=== PATIENT | male | born 1955 | race American Indian/Alaskan Native ===

== ENCOUNTER 2017-11-08 09:01 | Emergency (ER) | payer MEDICARE ==
[2017-11-08] MEDS ORDERED: TETRACAINE 0.5% OU ONE (11:34)
[2017-11-08] MEDS ORDERED: FUL-GLO OP ONE (11:34)
[2017-11-08] MEDS ORDERED: CATAPRES PO ONE (11:34)
[2017-11-08 11:49] VITALS: BP 162/69
--- NOTE | 2017-11-08 11:57 | Emergency Department Report ---
Stephani Doc - Documentation Documentation: Patient is a 61-year-old Indian male who states he was sitting at home last night and felt as though his blood sugar was dropping. Patient felt as though he was coming over his body went to reach for something sweet within had a syncopal episode. Patient states upon waking he started having some right eye pain. Patient thinks he may have hit his eye when he lost consciousness. Patient feels as though there is something in the eye he has a son look at his eye this morning in the just noted some redness is coming in today for further evaluation. The patient has not missed dialys at this time is current with his chin schedule for dialysis. Patient also states he takes blood pressure medicines because blood pressure was elevated today which will be addressed. Patient with some basic labs done to rule out any acute abnormality. We will floor stain the patient's the patient be reassessed AP is
[2017-11-08 12:04] LABS: Basophils % (Auto) 0.4 % (0.0-1.8); Eosinophils # (Auto) 0.1 K/mm3 (0.0-0.4); Eosinophils % (Auto) 0.9 % (0.0-4.3); Hematocrit 33.2 % (35.5-45.6); Lymphocytes # (Auto) 1.6 K/mm3 (1.2-5.4); Lymphocytes % (Auto) 27.2 % (13.4-35.0); Mean Corpuscular HGB Conc 33 % (32-34); Mean Corpuscular Hemoglobin 35 pg (28-32); Mean Corpuscular Volume 104 fl (84-94); Monocytes # (Auto) 0.4 K/mm3 (0.0-0.8); Monocytes % (Auto) 7.2 % (0.0-7.3); Platelet Count 173 K/mm3 (140-440); Red Blood Count 3.18 M/mm3 (3.65-5.03); Red Cell Distribution Width 17.3 % (13.2-15.2)
--- NOTE | 2017-11-08 12:08 | Emergency Department Report ---
ED Fall HPI - General Chief Complaint: Eye Problems Stated Complaint: RIGHT EYE PAIN Time Seen by Provider: 11/08/17 11:24 Source: patient Mode of arrival: Ambulatory - History of Present Illness Initial Comments: 61-year-old male. Past medical history ESRD on dialysis Wednesday presents with complaint of scalp contusion and right eye pain status post fall out of couch while at home last night. Patient states that while he was sitting on couch he felt slightly hypoglycemic reached for some candy and fell out of his seat on couch at home. Patient states he fell forward and felt somewhat dazed. States he may have hit right eye on a hard surface. Patient states he bumped the side of his head. Patient states the mandible denies any associated diaphoresis chest pain shortness of breath abdominal pain nausea vomiting. Patient states that his right eye is aching. States he has foreign body sensation overlying right eye. Patient was assisted by a family member. Patient is currently awake alert and oriented 3 not in acute distress. States that staring directly into light hurts his right eye. States he has been in his usual state of behavior health otherwise. MD Complaint: fall -: Last night Fall From: other (out of couch) Fall Witnessed: no Place Fall Occurred: home Loss of Consciousness: other (possibly dazed for several minutes) Prolonged Down Time?: unclear Location: head Severity: moderate Severity scale (0 -10): 6 Quality: burning, aching Associated Symptoms: other (right eye pain) - Related Data Home Medications Medication Instructions Recorded Confirmed Last Taken Aspirin 81 mg PO DAILY 04/27/17 04/27/17 1 Day Ago ~04/26/17 AtorvaSTATin [Lipitor] 40 mg PO QHS 04/27/17 04/27/17 1 Day Ago ~04/26/17 Vit B Comp No.3/Folic/C/Biotin 1 each PO DAILY 04/27/17 04/27/17 1 Day Ago [Carisa-Sonya Rx Tablet] ~04/26/17 traMADol [Ultram 50 MG tab] 50 mg PO Q6HR PRN 04/27/17 04/27/17 1 Day Ago ~04/26/17 Previous Rx's Medication Instructions Recorded Last Taken Type Carvedilol 25 mg PO DAILY #60 tablet 04/29/17 Unknown Rx Epoetin True 10,000 Unit [Procrit] 10,000 unit IV TuThSa vial 04/29/17 Unknown Rx Folic Acid/Vit B Comp W-C [Renal 1 cap PO QDAY capsule 04/29/17 Unknown Rx Caps] Insulin Aspart [NovoLOG 100 See Protocol SQ AC #3 ml 04/29/17 Unknown Rx UNITS/ML VIAL] Lisinopril [Zestril TAB] 40 mg PO QDAY #30 tablet 04/29/17 Unknown Rx NIFEdipine [Nifedipine ER] 60 mg PO DAILY #30 tab.er.24 04/29/17 Unknown Rx Acetaminophen [Acetaminophen TAB] 500 mg PO Q6HR PRN #20 tablet 11/08/17 Unknown Rx Bacitracin Zinc Oint [Antibiotic 1 applicatio TP BID #1 tube 11/08/17 Unknown Rx Oint] Erythromycin [Erythromycin Ophth 1 applic OP QID #1 tube 11/08/17 Unknown Rx Oint] Allergies Allergy/AdvReac Type Severity Reaction Status Date / Time No Known Allergies Allergy Verified 04/27/17 04:51 ED Review of Systems ROS: Stated complaint: RIGHT EYE PAIN Other details as noted in HPI Constitutional: denies: chills, fever Eyes: denies: eye pain, eye discharge, vision change ENT: denies: ear pain, throat pain Respiratory: denies: cough, shortness of breath, wheezing Cardiovascular: denies: chest pain, palpitations Endocrine: no symptoms reported Gastrointestinal: denies: abdominal pain, nausea, diarrhea Genitourinary: denies: urgency, dysuria Musculoskeletal: denies: back pain, joint swelling, arthralgia Skin: denies: rash, lesions Neurological: denies: headache, weakness, paresthesias Psychiatric: denies: anxiety, depression Hematological/Lymphatic: denies: easy bleeding, easy bruising ED Past Medical Hx - Past Medical History Hx Hypertension: Yes Hx Congestive Heart Failure: No Hx Diabetes: Yes Hx Renal Disease: Yes Hx Seizures: No Hx Kidney Stones: No Hx Asthma: No Hx COPD: No Hx HIV: No Additional medical history: Dialysis T TH Sat - Surgical History Additional Surgical History: graph to right leg - Social History Smoking Status: Never Smoker Substance Use Type: Marijuana - Medications Home Medications: Home Medications Medication Instructions Recorded Confirmed Last Taken Type Aspirin 81 mg PO DAILY 04/27/17 04/27/17 1 Day Ago History ~04/26/17 AtorvaSTATin [Lipitor] 40 mg PO QHS 04/27/17 04/27/17 1 Day Ago History ~04/26/17 Vit B Comp No.3/Folic/C/Biotin 1 each PO DAILY 04/27/17 04/27/17 1 Day Ago History [Carisa-Sonya Rx Tablet] ~04/26/17 traMADol [Ultram 50 MG tab] 50 mg PO Q6HR PRN 04/27/17 04/27/17 1 Day Ago History ~04/26/17 Carvedilol 25 mg PO DAILY #60 tablet 04/29/17 Unknown Rx Epoetin True 10,000 Unit [Procrit] 10,000 unit IV TuThSa vial 04/29/17 Unknown Rx Folic Acid/Vit B Comp W-C [Renal 1 cap PO QDAY capsule 04/29/17 Unknown Rx Caps] Insulin Aspart [NovoLOG 100 See Protocol SQ AC #3 ml 04/29/17 Unknown Rx UNITS/ML VIAL] Lisinopril [Zestril TAB] 40 mg PO QDAY #30 tablet 04/29/17 Unknown Rx NIFEdipine [Nifedipine ER] 60 mg PO DAILY #30 tab.er.24 04/29/17 Unknown Rx Acetaminophen [Acetaminophen TAB] 500 mg PO Q6HR PRN #20 tablet 11/08/17 Unknown Rx Bacitracin Zinc Oint [Antibiotic 1 applicatio TP BID #1 tube 11/08/17 Unknown Rx Oint] Erythromycin [Erythromycin Ophth 1 applic OP QID #1 tube 11/08/17 Unknown Rx Oint] ED Physical Exam - General Limitations: No Limitations General appearance: alert, in no apparent distress - Head Head exam: Present: atraumatic, normocephalic - Eye Eye exam: Present: normal appearance, PERRL, EOMI Pupils: Present: normal accommodation - Expanded Eye Exam Expanded Pupils: Regular, Round: Bilateral, Reactive: Bilateral Sclera/Conjunctival: Injection: Right (right-sided corneal abrasion approximately 50% of the limbus. Not overlying the pupil.) Visual acuity (R) = 20/: 80 Visual acuity (L) = 20/: 30 - ENT ENT exam: Present: mucous membranes moist - Neck Neck exam: Present: normal inspection - Respiratory Respiratory exam: Present: normal lung sounds bilaterally. Absent: respiratory distress - Cardiovascular Cardiovascular Exam: Present: regular rate, normal rhythm. Absent: systolic murmur, diastolic murmur, rubs, gallop - GI/Abdominal GI/Abdominal exam: Present: soft, normal bowel sounds - Rectal Rectal exam: Present: deferred - Extremities Exam Extremities exam: Present: normal inspection - Back Exam Back exam: Present: normal inspection - Neurological Exam Neurological exam: Present: alert, oriented X3, CN II-XII intact, normal gait - Expanded Neurological Exam Expanded Patient oriented to: Present: person, place, time Cranial nerves: EOM's Intact: Normal Sensory exam: Upper Extremity Light Touch: Normal, Lower Extremity Light Touch: Normal Motor strength exam: RUE: 5, LUE: 5, RLE: 5, LLE: 5 Best Eye Response ([place]sm[place]): (4) open spontaneously Best Motor Response ([place]): (6) obeys commands Best Verbal Response ([place]): (5) oriented Osmar Total: 15 - Psychiatric Psychiatric exam: Present: normal affect, normal mood - Skin Skin exam: Present: warm, dry, intact, normal color. Absent: rash ED Course Vital Signs 11/08/17 11/08/17 09:24 11:49 Temperature 98.8 F Pulse Rate 79 Respiratory 17 Rate Blood Pressure 179/157 162/69 O2 Sat by Pulse 100 Oximetry ED Medical Decision Making - Lab Data Result diagrams: 11/08/17 11:41 11/08/17 11:41 - Medical Decision Making A/P: Syncopal episode, right corneal abrasion, skin abrasion on scalp 1-tetanus vaccine updated today, erythromycin ointment to right eye. Follow-up with ophthalmology. 2-I advised patient to follow up with his primary care doctor. I emphasized the importance of follow-up with ophthalmology to the patient's 3-Tylenol when necessary, bacitracin to forehead abrasion 4- CT head and C-spine unremarkable. Old degenerative changes C-spine. Cranial nerves 2, 3, 4, 5, 6, 7, 8,10, 11, 12 intact on clinical exam, patient is fully lucid awake alert and oriented 3 conversant. 5- discuss case with Dr. Suarez before discharge. Dr. Suarez no further workup necessary. EKG sinus rhythm, CT is unremarkable. Lab work unremarkable, consistent with patient's history of ESRD. Critical care attestation.: If time is entered above; I have spent that time in minutes in the direct care of this critically ill patient, excluding procedure time. ED Disposition Clinical Impression: Right corneal abrasion Qualifiers: Encounter type: initial encounter Qualified Code(s): S05.01XA - Injury of conjunctiva and corneal abrasion without foreign body, right eye, initial encounter Contusion of scalp Qualifiers: Encounter type: initial encounter Qualified Code(s): S00.03XA - Contusion of scalp, initial encounter Scalp abrasion Qualifiers: Encounter type: initial encounter Qualified Code(s): S00.01XA - Abrasion of scalp, initial encounter Disposition: DC- TO HOME OR SELFCARE Is pt being admited?: No Does the pt Need Aspirin: No Condition: Stable Instructions: Corneal Abrasion (ED), Syncope (ED), Abrasion (ED), Scalp Contusion in Adults (ED) Prescriptions: Acetaminophen [Acetaminophen TAB] 500 mg PO Q6HR PRN #20 tablet PRN Reason: Pain Bacitracin Zinc Oint [Antibiotic Oint] 1 applicatio TP BID #1 tube Erythromycin [Erythromycin Ophth Oint] 1 applic OP QID #1 tube Referrals: THERESA ALBA MD [Staff Physician] - 3-5 Days JENNIFER ORTIZ MD [Staff Physician] - 3-5 Days Time of Disposition: 13:31
[2017-11-08 12:18] LABS: Calcium 9.8 mg/dL (8.4-10.2)
[2017-11-08] MEDS ORDERED: TYLENOL PO ONE (13:23)
[2017-11-08] MEDS ORDERED: BOOSTRIX IM ONE (13:24)
--- NOTE | 2017-11-08 13:28 | Cat Scan Report ---
FINAL REPORT EXAM: CT CERVICAL SPINE WO CON HISTORY: s/p fall head/neck pain TECHNIQUE: A noncontrast CT of the cervical spine was performed. Coronal and sagittal reformatted images were obtained. PRIORS: None. FINDINGS: Vertebral body heights and alignment are maintained. There is no evidence of acute fracture. Mild posterior disc protrusions and disc osteophyte complexes cause multilevel mild spinal stenosis. There is also multilevel moderate facet arthropathy, mostly on the left. With degenerative disc disease findings cause [id number] neuroforaminal narrowing at C3-4 and C4-5 on the left. IMPRESSION: Degenerative changes. There is no evidence of cervical spine fracture or subluxation.
--- NOTE | 2017-11-08 13:29 | Cat Scan Report ---
FINAL REPORT EXAM: CT HEAD/BRAIN WO CON HISTORY: s/p fall, headache TECHNIQUE: CT of the head was performed. No intravenous contrast was administered. PRIORS: None. FINDINGS: There is no evidence of intracranial hemorrhage. There is no edema, mass effect or midline shift. There are no abnormal extra-axial fluid collections. The ventricles are appropriate for brain volume. There is no skull fracture seen. The visualized aspects of the sinuses are clear. IMPRESSION: There is no acute intracranial abnormality identified.
[2017-11-08] MEDS ORDERED: NORCO 5/325 PO ONE (14:23)
== END 2017-11-08 14:03 | disposition home or self-care (01) ==
LOC: ED 09:01
DX: S05.01XA Injury of conjunctiva and corneal abrasion without foreign body, right eye, initial encounter (principal); E11.22 Type 2 diabetes mellitus with diabetic chronic kidney disease; I12.0 Hypertensive chronic kidney disease with stage 5 chronic kidney disease or end stage renal disease; N18.6 End stage renal disease; F12.10 Cannabis abuse, uncomplicated; Z99.2 Dependence on renal dialysis; Z79.4 Long term (current) use of insulin; W08.XXXA Fall from other furniture, initial encounter; Y93.89 Activity, other specified; Y99.8 Other external cause status; Y92.009 Unspecified place in unspecified non-institutional (private) residence as the place of occurrence of the external cause
CPT/HCPCS: 36415; 70450; 72125; 80048; 82962; 85025; 90471; 90715; 93005; 93010

== ENCOUNTER 2018-11-29 04:45 | Emergency (ER) | payer MEDICARE ==
[2018-11-29 05:33] VITALS: BP 206/82
== END 2018-11-29 05:50 | disposition left against medical advice (07) ==
LOC: ED 04:45
DX: R06.89 Other abnormalities of breathing (principal); Z53.21 Procedure and treatment not carried out due to patient leaving prior to being seen by health care provider

== ENCOUNTER 2018-12-21 02:37 | Inpatient (IN) | payer MEDICARE ==
--- NOTE | 2018-12-21 02:53 | Emergency Department Report ---
ED Shortness of Breath HPI - General Chief Complaint: Dyspnea/Respdistress Stated Complaint: SEBAS Time Seen by Provider: 12/21/18 02:53 Source: patient Mode of arrival: Wheelchair Limitations: No Limitations - History of Present Illness Initial Comments: 63-year-old male with history of ESRD and pancreatic cancer presents to ED with sudden onset shortness of breath. Patient states symptoms awoke him from sleep. Patient states he was dialyzed yesterday, patient is on a Wednesday//Wednesday schedule. Patient is not on any oxygen at home. This chest pain. Reports cough productive of white sputum, denies fever. Patient states he believes he did not have enough fluid removed while at dialysis yesterday. Patient denies lower extremity pain or swelling. Pt 88% on RA at triage. 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 Complaint: shortness of breath -: hour(s) (1) Severity: severe Improves With: nothing Worsens With: nothing Known History Of: other (ESRD) Associated Symptoms: cough - Related Data Home Medications Medication Instructions Recorded Confirmed Last Taken AtorvaSTATin [Lipitor] 40 mg PO QHS 04/27/17 08/04/18 1 Day Ago ~04/26/17 Vit B Comp No.3/Folic/C/Biotin 1 each PO DAILY 04/27/17 08/04/18 1 Day Ago [Carisa-Sonya Rx Tablet] ~04/26/17 traMADol [Ultram 50 MG tab] 50 mg PO Q6H PRN 04/27/17 08/04/18 1 Day Ago ~04/26/17 Amlodipine Besylate [Norvasc] 10 mg PO QDAY 08/04/18 08/04/18 Unknown Aspirin [Adult Low Dose Aspirin EC] 81 mg PO DAILY 08/04/18 08/04/18 Unknown Carvedilol 25 mg PO BID 08/04/18 08/04/18 Unknown Insulin Aspart [NovoLOG 100 10 units SUB-Q PRN 08/04/18 08/04/18 Unknown UNITS/ML VIAL] Insulin Detemir [Levemir Flextouch] 30 units SUB-Q QHS 08/04/18 08/04/18 Unknown Ranitidine HCl [Zantac] 150 mg PO QDAY 08/04/18 08/04/18 Unknown hydrALAZINE [Apresoline TAB] 25 mg PO TID 08/04/18 08/04/18 Unknown Allergies Allergy/AdvReac Type Severity Reaction Status Date / Time morphine Allergy Swelling Verified 11/29/18 04:52 ED Review of Systems ROS: Stated complaint: SEBAS Other details as noted in HPI Comment: All other systems reviewed and negative Constitutional: denies: chills, fever Respiratory: cough, shortness of breath Cardiovascular: denies: chest pain Musculoskeletal: other (denies leg pain or swelling) ED Past Medical Hx - Past Medical History Previous Medical History?: Yes Hx Hypertension: Yes Hx Congestive Heart Failure: No Hx Diabetes: Yes Hx Renal Disease: Yes Hx Seizures: No Hx Kidney Stones: No Hx Asthma: No Hx COPD: No Hx HIV: No Additional medical history: Dialysis T Wed - Surgical History Past Surgical History?: Yes Additional Surgical History: graft to right leg - Social History Smoking Status: Current Every Day Smoker Substance Use Type: Marijuana - Medications Home Medications: Home Medications Medication Instructions Recorded Confirmed Last Taken Type AtorvaSTATin [Lipitor] 40 mg PO QHS 04/27/17 08/04/18 1 Day Ago History ~04/26/17 Vit B Comp No.3/Folic/C/Biotin 1 each PO DAILY 04/27/17 08/04/18 1 Day Ago History [Carisa-Sonya Rx Tablet] ~04/26/17 traMADol [Ultram 50 MG tab] 50 mg PO Q6H PRN 04/27/17 08/04/18 1 Day Ago History ~04/26/17 Amlodipine Besylate [Norvasc] 10 mg PO QDAY 08/04/18 08/04/18 Unknown History Aspirin [Adult Low Dose Aspirin EC] 81 mg PO DAILY 08/04/18 08/04/18 Unknown History Carvedilol 25 mg PO BID 08/04/18 08/04/18 Unknown History Insulin Aspart [NovoLOG 100 10 units SUB-Q PRN 08/04/18 08/04/18 Unknown History UNITS/ML VIAL] Insulin Detemir [Levemir Flextouch] 30 units SUB-Q QHS 08/04/18 08/04/18 Unknown History Ranitidine HCl [Zantac] 150 mg PO QDAY 08/04/18 08/04/18 Unknown History hydrALAZINE [Apresoline TAB] 25 mg PO TID 08/04/18 08/04/18 Unknown History ED Physical Exam - General Limitations: No Limitations General appearance: alert, in distress - Head Head exam: Present: atraumatic, normocephalic - Eye Eye exam: Present: normal appearance - ENT ENT exam: Present: mucous membranes moist - Neck Neck exam: Present: normal inspection - Respiratory Respiratory exam: Present: respiratory distress, rales, other (tachypneic) - Cardiovascular Cardiovascular Exam: Present: normal rhythm, tachycardia - GI/Abdominal GI/Abdominal exam: Present: soft. Absent: distended, tenderness - Extremities Exam Extremities exam: Absent: pedal edema - Neurological Exam Neurological exam: Present: alert, oriented X3 - Psychiatric Psychiatric exam: Present: normal affect, normal mood - Skin Skin exam: Present: warm, dry, intact, normal color. Absent: rash ED Course Vital Signs 12/21/18 12/21/18 12/21/18 02:41 02:47 03:01 Temperature 98.3 F Pulse Rate 106 H 110 H 134 H Respiratory 24 43 H 41 H Rate Blood Pressure 237/105 Blood Pressure 237/99 [Right] O2 Sat by Pulse 88 94 100 Oximetry 12/21/18 12/21/18 12/21/18 03:13 03:15 03:31 Temperature Pulse Rate 114 H 96 H 87 Respiratory 33 H 24 25 H Rate Blood Pressure 237/105 217/104 Blood Pressure [Right] O2 Sat by Pulse 96 100 100 Oximetry 12/21/18 12/21/18 12/21/18 03:45 04:01 04:15 Temperature Pulse Rate 84 84 79 Respiratory 23 17 13 Rate Blood Pressure 203/86 217/104 187/73 Blood Pressure [Right] O2 Sat by Pulse 100 100 100 Oximetry 12/21/18 12/21/18 12/21/18 04:30 04:31 04:45 Temperature Pulse Rate 76 75 76 Respiratory 18 19 19 Rate Blood Pressure 185/75 177/70 185/75 Blood Pressure [Right] O2 Sat by Pulse 100 100 100 Oximetry 12/21/18 12/21/18 05:01 05:15 Temperature Pulse Rate 73 74 Respiratory 18 23 Rate Blood Pressure 185/75 183/75 Blood Pressure [Right] O2 Sat by Pulse 100 100 Oximetry ED Medical Decision Making - Lab Data Result diagrams: 12/21/18 03:19 12/21/18 03:19 - EKG Data -: EKG Interpreted by Me EKG shows normal: sinus rhythm, axis, intervals, QRS complexes, ST-T waves Rate: normal - EKG Data Interpretation: no acute changes - Radiology Data Radiology results: report reviewed, image reviewed - Medical Decision Making 63-year-old male with sudden onset acute respiratory distress. Room air sats 88%. Patient severely hypertensive. Due to respiratory distress, patient was placed on BiPAP. Hydralazine given for blood pressure. Chest x-rays show pulmonary edema and possible right-sided infiltrate. Patient afebrile, wbc's normal. Levaquin given for coverage. Pt admitted to hospitalist, Dr Alex. - Differential Diagnosis pulm edema, pneumonia, pleural effusion, PE Critical care attestation.: If time is entered above; I have spent that time in minutes in the direct care of this critically ill patient, excluding procedure time. ED Disposition Clinical Impression: Pulmonary edema, Respiratory failure with hypoxia, Hypertensive emergency, ESRD (end stage renal disease) Disposition: OP ADMIT IP TO THIS HOSP Is pt being admited?: Yes Condition: Stable Instructions: Pulmonary Edema (ED), Hypertension (ED) Referrals: PRIMARY CARE, [Primary Care Provider] - 3-5 Days Time of Disposition: 04:26
[2018-12-21] MEDS ORDERED: APRESOLINE IV ONE (03:21)
[2018-12-21] MEDS ORDERED: APRESOLINE ONE ×2 (03:24→08:15)
--- NOTE | 2018-12-21 03:45 | XRay Report ---
PROCEDURE: XR CHEST 1V AP TECHNIQUE: Chest radiograph single view. HISTORY: sob COMPARISONS: 04/29/2017 . FINDINGS: Heart: The heart is mildly enlarged.. Mediastinum/Vessels: The lungs are diffusely congested.. Lungs/Pleural space: There is diffuse bilateral interstitial edema. Superimposed airspace disease ca nnot be excluded in the right lung base. Pleural fluid is not seen.. Bony thorax: No acute osseous abnormality. Life support devices: There is a Port-A-Cath catheter along the right chest wall with the limb in the SVC.. IMPRESSION: Congestive heart failure pattern. Superimposed pneumonia in the right lung base cannot b e excluded.. This document is electronically signed by Doug Ryan MD., December 21 2018 03:43:52 AM ET
[2018-12-21 04:19] LABS: Partial Thromboplastin Time 27.9 Sec. (24.2-36.6)
[2018-12-21 04:25] LABS: Basophils # (Auto) 0.1 K/mm3 (0.0-0.1); Calcium 9.5 mg/dL (8.4-10.2); Eosinophils # (Auto) 0.1 K/mm3 (0.0-0.4); Eosinophils % (Auto) 1.4 % (0.0-4.3); Monocytes # (Auto) 0.3 K/mm3 (0.0-0.8); Monocytes % (Auto) 4.5 % (0.0-7.3)
[2018-12-21 04:28] LABS: Red Blood Count 2.99 M/mm3 (3.65-5.03)
[2018-12-21 04:29] LABS: Hematocrit 31.1 % (35.5-45.6); Hemoglobin 10.5 gm/dl (11.8-15.2); Lymphocytes % (Auto) 27.6 % (13.4-35.0); Mean Corpuscular HGB Conc 34 % (32-34); Mean Corpuscular Volume 104 fl (84-94); Platelet Count 179 K/mm3 (140-440); Red Cell Distribution Width 21.7 % (13.2-15.2)
[2018-12-21] MEDS ORDERED: PERCOCET 5/325 PO ONE (05:14)
[2018-12-21] MEDS ORDERED: PERCOCET 5/325 ONE (05:17)
[2018-12-21] MEDS ORDERED: LEVAQUIN PO ONE (06:13)
--- NOTE | 2018-12-21 06:45 | History and Physical Report ---
History of Present Illness Date of examination: 12/21/18 Date of admission: 12/21/18 05:22 Chief complaint: Shortness of breath History of present illness: Patient is a 63-year-old male with PMHx ESRD on HD (TTS), pancreatic cancer (dx on October 2018, currently on chemotherapy), hypertension who presents to the ER with complaints of SOB. Patient states that he woke up with severe shortness of breath, he was unable to catch his breath, his son drove him to the ER for evaluation. Patient states that he started chemotherapy 2 weeks ago on Wednesday, he received a lot of fluid in chemotherapy, after undergoing HD that day. Patient states that he can hear his lung crackling due to fluid overload, he reports sudden cough productive of white sputum, he denies chest pain, denies lower extremity pain or swelling, denies fever, denies chills. Patient states he feels that is getting fluid overloaded in chemotherapy and not enough HD time which cause his symptoms. On arrival to the ER, patient's O2 sat was 88%, his O2 sat continued to decline he was put in a BiPAP for better ventilation, his BNP is pending, patient is admitted for further management of his presenting symptoms. Past History Past Medical History: anemia, cancer, COPD, ESRD Past Surgical History: No surgical history Social history: no significant social history, smoking (decrease to 2 cigarettes per day) Family history: no significant family history Medications and Allergies Allergies Allergy/AdvReac Type Severity Reaction Status Date / Time morphine Allergy Swelling Verified 11/29/18 04:52 Home Medications Medication Instructions Recorded Confirmed Last Taken Type AtorvaSTATin [Lipitor] 40 mg PO QHS 04/27/17 12/21/18 12/20/18 History Vit B Comp No.3/Folic/C/Biotin 1 each PO DAILY 04/27/17 12/21/18 12/20/18 History [Carisa-Sonya Rx Tablet] traMADol [Ultram 50 MG tab] 50 mg PO Q6H PRN 04/27/17 12/21/18 12/20/18 History Amlodipine Besylate [Norvasc] 10 mg PO QDAY 08/04/18 12/21/18 12/20/18 History Aspirin [Adult Low Dose Aspirin EC] 81 mg PO DAILY 08/04/18 12/21/18 12/20/18 History Carvedilol 25 mg PO BID 08/04/18 12/21/18 12/20/18 History Insulin Aspart [NovoLOG 100 10 units SUB-Q PRN 08/04/18 12/21/18 12/20/18 History UNITS/ML VIAL] Insulin Detemir [Levemir Flextouch] 30 units SUB-Q QHS 08/04/18 12/21/18 12/20/18 History Ranitidine HCl [Zantac] 150 mg PO QDAY 08/04/18 12/21/18 12/20/18 History hydrALAZINE [Apresoline TAB] 25 mg PO TID 08/04/18 12/21/18 12/20/18 History Review of Systems Respiratory: cough, shortness of breath, dyspnea on exertion, congestion Exam - Constitutional Vitals: Temp Pulse Resp BP Pulse Ox 98.3 F 74 23 183/75 100 12/21/18 02:41 12/21/18 05:15 12/21/18 05:15 12/21/18 05:15 12/21/18 05:15 General appearance: Present: mild distress - EENT Eyes: Present: EOM intact ENT: hearing intact - Neck Neck: Present: normal ROM - Respiratory Respiratory effort: normal Respiratory: bilateral: rales, rhonchi - Cardiovascular Rhythm: regular Heart Sounds: Present: S1 & S2 Peripheral Pulses: within normal limits - Abdominal Male genitourinary: Present: deferred - Rectal Rectal Exam: deferred - Integumentary Integumentary: Present: warm, dry - Musculoskeletal Musculoskeletal: generalized weakness - Psychiatric Psychiatric: cooperative - Neurologic Neurologic: moves all extremities Results - Labs CBC & Chem 7: 12/21/18 03:19 12/21/18 03:19 Labs: Laboratory Last Values WBC 7.4 K/mm3 (4.5-11.0) 12/21/18 03:19 RBC 2.99 M/mm3 (3.65-5.03) L 12/21/18 03:19 Hgb 10.5 gm/dl (11.8-15.2) L 12/21/18 03:19 Hct 31.1 % (35.5-45.6) L 12/21/18 03:19 MCV 104 fl (84-94) H 12/21/18 03:19 MCH 35 pg (28-32) H 12/21/18 03:19 MCHC 34 % (32-34) 12/21/18 03:19 RDW 21.7 % (13.2-15.2) H 12/21/18 03:19 Plt Count 179 K/mm3 (140-440) 12/21/18 03:19 Lymph % (Auto) 27.6 % (13.4-35.0) 12/21/18 03:19 [place] % (Auto) 4.5 % (0.0-7.3) 12/21/18 03:19 Eos % (Auto) 1.4 % (0.0-4.3) 12/21/18 03:19 Baso % (Auto) 1.0 % (0.0-1.8) 12/21/18 03:19 Lymph # 2.0 K/mm3 (1.2-5.4) 12/21/18 03:19 [place] # 0.3 K/mm3 (0.0-0.8) 12/21/18 03:19 Eos # 0.1 K/mm3 (0.0-0.4) 12/21/18 03:19 Baso # 0.1 K/mm3 (0.0-0.1) 12/21/18 03:19 Add Manual Diff Complete 12/21/18 03:19 Seg Neutrophils % 65.5 % (40.0-70.0) 12/21/18 03:19 Seg Neutrophils # 4.8 K/mm3 (1.8-7.7) 12/21/18 03:19 PT 13.8 Sec. (12.2-14.9) 12/21/18 03:19 INR 1.00 (0.87-1.13) 12/21/18 03:19 APTT 27.9 Sec. (24.2-36.6) 12/21/18 03:19 Sodium 132 mmol/L (137-145) L 12/21/18 03:19 Potassium 4.4 mmol/L (3.6-5.0) 12/21/18 03:19 Chloride 87.1 mmol/L (98-107) L 12/21/18 03:19 Carbon Dioxide 27 mmol/L (22-30) 12/21/18 03:19 22 mmol/L 12/21/18 03:19 BUN 31 mg/dL (9-20) H 12/21/18 03:19 4.7 mg/dL (0.8-1.5) H 12/21/18 03:19 Estimated GFR 15 ml/min 12/21/18 03:19 7 % 12/21/18 03:19 Calcium 9.5 mg/dL (8.4-10.2) 12/21/18 03:19 0.129 ng/mL (0.00-0.029) H* 12/21/18 03:19 Assessment and Plan Assessment and plan: 1. Volume overload 2. Acute dyspnea (due to above) 3. ESRD on HD (TTS) 4. Pancreatic Ca (chemotherapy) 5. Accelerated hypertension 6. Hyperlipidemia 7. Hyponatremia 8. Anemia (multifactorial (chemotherapy, CKD) Plan: Patient is admitted for fluid overload Lasix IV every 12 hours Fluid restriction Consult nephrology for HD management Hydralazine for SBP greater than 160 Resume home meds Hospital course Advance Directives: Yes VTE prophylaxis?: Chemical Plan of care discussed with patient/family: Yes
[2018-12-21] MEDS ORDERED: HumaLOG SUB-Q ONE ×2 (07:39→07:54)
[2018-12-21] MEDS ORDERED: NITROSTAT SL PRN (07:42)
[2018-12-21 07:52] LABS: Chol/HDL Ratio 6.25 %; HDL Cholesterol 27 mg/dL (40-59); LDL Cholesterol,Direct TNR mg/dL (50-130)
[2018-12-21] MEDS: APRESOLINE IV PRN (08:18)
[2018-12-21] MEDS ORDERED: DILAUDID IV ONE (09:14)
[2018-12-21] MEDS ORDERED: ZOFRAN IV ONE (09:15)
[2018-12-21] MEDS ORDERED: DILAUDID ONE (09:19)
[2018-12-21] MEDS ORDERED: ZOFRAN ONE (09:19)
[2018-12-21] MEDS ORDERED: COREG ONE (09:20)
[2018-12-21] MEDS ORDERED: ZESTRIL ONE (09:20)
[2018-12-21] MEDS: ZESTRIL PO SCH (09:35)
[2018-12-21] MEDS ORDERED: APRESOLINE IV SCH (10:00)
[2018-12-21] MEDS ORDERED: COREG PO SCH (10:00)
[2018-12-21] MEDS ORDERED: ULTRAM PO PRN (11:45)
[2018-12-21] MEDS ORDERED: D50W (25GM) Syringe IV PRN (11:48)
[2018-12-21] MEDS ORDERED: HumuLIN R 100 UNITS in NACL 0.9% 99 ML IV SCH (12:00)
--- NOTE | 2018-12-21 13:23 | Progress Note ---
Assessment and Plan Assessment and plan: Patient is a 63-year-old male with PMHx ESRD on HD (TTS), pancreatic cancer (dx on October 2018, currently on chemotherapy), hypertension who presents to the ER with complaints of SOB. Patient states that he woke up with severe shortness of breath, he was unable to catch his breath, his son drove him to the ER for evaluation. Patient states that he started chemotherapy 2 weeks ago on Wednesday, he received a lot of fluid in chemotherapy, after undergoing HD that day. Patient states that he can hear his lung crackling due to fluid overload, he reports sudden cough productive of white sputum, he denies chest pain, denies lower extremity pain or swelling, denies fever, denies chills. Patient states h e feels that is getting fluid overloaded in chemotherapy and not enough HD time which cause his symptoms. On arrival to the ER, patient's O2 sat was 88%, his O2 sat continued to decline he was put in a BiPAP for better ventilation, his BNP is pending, patient is admitted for further management of his presenting symptoms. Past History Past Medical History: anemia, cancer, COPD, ESRD 1. Volume overload 2. Acute dyspnea (due to above) 3. ESRD on HD (TTS) 4. Pancreatic Ca (chemotherapy) 5. Accelerated hypertension 6. Hyperlipidemia 7. Hyponatremia 8. Anemia (multifactorial (chemotherapy, CKD) Plan: Patient is admitted for fluid overload Fluid restriction Consult nephrology for HD management optimize bp meds insulin for elevated insulin Resume home meds Hospital course History Interval history: complaining of shortness of breath Review of systems Constitutional: No fevers, no malaise, no joint pains CVS: No chest pain GI: No abdominal pain, no diarrhea, no vomiting, no constipation Respiratory: no wheezing, no coughing Hospitalist Physical - Physical exam Narrative exam: General.: Appears well, no distress, nontoxic HEENT: Moist mucous membranes, extraocular muscles intact, no lymphadenopathy Neck: supple Cardiac: S1-S2 heard Lungs: Decreased air entry, crackles in bases Abdomen: soft , nontender, nondistended, bowel sounds positive Extremities: no edema clubbing or cyanosis Skin: no rash or lesions Neurologic: no gross focal deficits Psych: calm, and cooperative - Constitutional Vitals: Temp Pulse Resp BP Pulse Ox 98.2 F 84 16 171/96 98 12/21/18 08:10 06/12/19 12:34 12/21/18 12:34 12/21/18 12:34 12/21/18 12:34 General appearance: Present: mild distress Results - Labs CBC & Chem 7: 12/21/18 03:19 12/22/18 15:45 Labs: Laboratory Last Values WBC 7.4 K/mm3 (4.5-11.0) 12/21/18 03:19 RBC 2.99 M/mm3 (3.65-5.03) L 12/21/18 03:19 Hgb 10.5 gm/dl (11.8-15.2) L 12/21/18 03:19 Hct 31.1 % (35.5-45.6) L 12/21/18 03:19 MCV 104 fl (84-94) H 12/21/18 03:19 MCH 35 pg (28-32) H 12/21/18 03:19 MCHC 34 % (32-34) 12/21/18 03:19 RDW 21.7 % (13.2-15.2) H 12/21/18 03:19 Plt Count 179 K/mm3 (140-440) 12/21/18 03:19 Lymph % (Auto) 27.6 % (13.4-35.0) 12/21/18 03:19 [place] % (Auto) 4.5 % (0.0-7.3) 12/21/18 03:19 Eos % (Auto) 1.4 % (0.0-4.3) 12/21/18 03:19 Baso % (Auto) 1.0 % (0.0-1.8) 12/21/18 03:19 Lymph # 2.0 K/mm3 (1.2-5.4) 12/21/18 03:19 [place] # 0.3 K/mm3 (0.0-0.8) 12/21/18 03:19 Eos # 0.1 K/mm3 (0.0-0.4) 12/21/18 03:19 Baso # 0.1 K/mm3 (0.0-0.1) 12/21/18 03:19 Add Manual Diff Complete 12/21/18 03:19 Seg Neutrophils % 65.5 % (40.0-70.0) 12/21/18 03:19 Seg Neutrophils # 4.8 K/mm3 (1.8-7.7) 12/21/18 03:19 PT 13.8 Sec. (12.2-14.9) 12/21/18 03:19 INR 1.00 (0.87-1.13) 12/21/18 03:19 APTT 27.9 Sec. (24.2-36.6) 12/21/18 03:19 Sodium 132 mmol/L (137-145) L 12/21/18 03:19 Potassium 4.4 mmol/L (3.6-5.0) 12/21/18 03:19 Chloride 87.1 mmol/L (98-107) L 12/21/18 03:19 Carbon Dioxide 27 mmol/L (22-30) 12/21/18 03:19 22 mmol/L 12/21/18 03:19 BUN 31 mg/dL (9-20) H 12/21/18 03:19 4.7 mg/dL (0.8-1.5) H 12/21/18 03:19 Estimated GFR 15 ml/min 12/21/18 03:19 7 % 12/21/18 03:19 Glucose 501 mg/dL (75-100) H* 12/21/18 03:19 POC Glucose 390 (70-105) H 12/21/18 12:21 Calcium 9.5 mg/dL (8.4-10.2) 12/21/18 03:19 0.129 ng/mL (0.00-0.029) H* 12/21/18 03:19 NT-Pro-B Natriuret Pep 49784 pg/mL (0-900) H 12/21/18 03:19 Triglycerides 595 mg/dL (2-149) H 12/21/18 03:19 Cholesterol 169 mg/dL (50-199) 12/21/18 03:19 TNR 12/21/18 03:19 27 mg/dL (40-59) L 12/21/18 03:19 6.25 % 12/21/18 03:19 Active Medications - Current Medications Current Medications: Generic Name Dose Route Start Last Admin Trade Name Freq PRN Reason Stop Dose Admin Amlodipine Besylate 10 mg 12/22/18 10:00 Norvasc PO QDAY KIKI Aspirin 81 mg 12/22/18 10:00 Halfprin Ec PO DAILY [facility] Atorvastatin Calcium 40 mg 12/21/18 22:00 Lipitor PO QHS [facility] Carvedilol 3.125 mg 12/21/18 10:00 12/21/18 09:35 Coreg PO 3.125 mg BID KIKI Administration Carvedilol 25 mg 12/21/18 22:00 Coreg PO BID [facility] Dextrose 0 ml 12/21/18 11:48 D50w (25gm) Syringe IV PRN PRN Hypoglycemia Famotidine 20 mg 12/21/18 14:00 Pepcid PO DAILY [facility] Furosemide 20 mg 12/21/18 18:00 Lasix IV BID@0600,1800 [facility] Hydralazine HCl 10 mg 12/21/18 07:47 12/21/18 08:18 Apresoline IV 10 mg Q4HR PRN Administration Hypertension Hydralazine HCl 25 mg 12/21/18 14:00 Apresoline PO TID [facility] Insulin Human Regular 100 100 mls @ 1 mls/hr 12/21/18 12:00 12/21/18 12:26 units/ Sodium Chloride IV 7 units/hr TITR [facility] 7 mls/hr Administration Protocol 1 UNITS/HR Insulin Glargine 30 units 12/21/18 22:00 Lantus SUB-Q QHS [facility] Lisinopril 2.5 mg 12/21/18 10:00 12/21/18 09:35 Zestril PO 2.5 mg QDAY [facility] Administration Multivit/Ca Carb/B Cmplx/FA/Prenat 1 cap 12/22/18 10:00 Renal Caps PO QDAY [facility] Nitroglycerin 0.4 mg 12/21/18 07:42 Nitrostat SL .Q5MIN PRN Chest Pain Tramadol HCl 50 mg 12/21/18 11:45 Ultram PO Q6H PRN Pain
[2018-12-21 13:38] LABS: Calcium 8.9 mg/dL (8.4-10.2)
[2018-12-21] MEDS ORDERED: HEPARIN 10,000 UNITS/10 ML IV PRN (15:22)
[2018-12-21] MEDS ORDERED: NACL 0.9% 100 ML IV PRN (15:22)
[2018-12-21 17:05] LABS: Calcium 9.2 mg/dL (8.4-10.2)
[2018-12-21 17:20] LABS: Hepatitis C Virus Antibody Reactive (NonReactive)
[2018-12-21 17:45] LABS: Hepatitis B Surface Antigen Non-Reactive (Negative)
[2018-12-21] MEDS ORDERED: LASIX IV SCH (18:00)
--- NOTE | 2018-12-21 18:12 | Consultation ---
History of Present Illness - Reason for Consult Consult date: 12/21/18 acute renal failure, end stage renal disease Requesting physician: OKSANA HOWARD - History of Present Illness 60-year-old male who is well known to me with history of diabetes mellitus, hypertension, complicated by incisional disease on hemodialysis on a Wednesday, and Wednesday schedule. Patient was recently diagnosed with pancreatic cancer and is getting chemotherapy. Patient does dialysis on Tuesdays and then goes for chemotherapy after that. After receiving chemotherapy at the medical oncology clinic, he continues with an infusion which lasts till Wednesday and then he does dialysis on Fridays. Patient says he gets about 3 blocks of fluid and chemotherapy and this by trying to limit his fluid intake is been having problems with fluid overload. He received chemotherapy yesterday after dialysis and then went to bed last night. He woke up dyspneic and reports sitting on the edge of the bed with palpitations and wheezing. He was coughing productive of whitish sputum. No hemoptysis. Patient was brought to the hospital for evaluation. In the ER O2 sat was 88%. He also admits to nausea and diaphoresis but denies any dizziness. Blood pressure was as high as 237/100 on 5 L of mercury. He denies any fever or chills. No lower extremity swelling. Past History Past Medical History: anemia, cancer, COPD, diabetes, ESRD Past Surgical History: Other (failed upper extremity AV accesses, AV right femoral AV graft placement, percutaneous transluminal angioplasty to lower extremity vasculature) Social history: no significant social history, smoking (decrease to 2 cigarettes per day), other (originally from [facility] where he worked for the [employer] for the [employer]. Lived in [place] for 20 years worked in [employer] and [employer]. Currently disabled and lives with his son). denies: alcohol abuse (quit drinking alcohol years ago), prescription drug abuse, IV drug use Family history: cancer ( of lung cancer. One sister of brain cancer and breast cancer.), diabetes (father of complications of diabetes m mary), other (one brother has end-stage renal disease) Medications and Allergies Allergies Allergy/AdvReac Type Severity Reaction Status Date / Time morphine Allergy Swelling Verified 11/29/18 04:52 Home Medications Medication Instructions Recorded Confirmed Last Taken Type AtorvaSTATin [Lipitor] 40 mg PO QHS 04/27/17 12/21/18 12/20/18 History Vit B Comp No.3/Folic/C/Biotin 1 each PO DAILY 04/27/17 12/21/18 12/20/18 History [Carisa-Sonya Rx Tablet] traMADol [Ultram 50 MG tab] 50 mg PO Q6H PRN 04/27/17 12/21/18 12/20/18 History Amlodipine Besylate [Norvasc] 10 mg PO QDAY 08/04/18 12/21/18 12/20/18 History Aspirin [Adult Low Dose Aspirin EC] 81 mg PO DAILY 08/04/18 12/21/18 12/20/18 History Carvedilol 25 mg PO BID 08/04/18 12/21/18 12/20/18 History Insulin Aspart [NovoLOG 100 10 units SUB-Q PRN 08/04/18 12/21/18 12/20/18 History UNITS/ML VIAL] Insulin Detemir [Levemir Flextouch] 30 units SUB-Q QHS 08/04/18 12/21/18 12/20/18 History Ranitidine HCl [Zantac] 150 mg PO QDAY 08/04/18 12/21/18 12/20/18 History hydrALAZINE [Apresoline TAB] 25 mg PO TID 08/04/18 12/21/18 12/20/18 History Active Meds: Active Medications Amlodipine Besylate (Norvasc) 10 mg PO QDAY [facility] Aspirin (Halfprin Ec) 81 mg PO DAILY [facility] Atorvastatin Calcium (Lipitor) 40 mg PO QHS [facility] Carvedilol (Coreg) 3.125 mg PO BID [facility] Last Admin: 12/21/18 09:35 Dose: 3.125 mg Documented by: Carvedilol (Coreg) 25 mg PO BID [facility] Dextrose (D50w (25gm) Syringe) 0 ml IV PRN PRN PRN Reason: Hypoglycemia Famotidine (Pepcid) 20 mg PO DAILY [facility] Furosemide (Lasix) 20 mg IV BID@0600,1800 [facility] Heparin Sodium (Porcine) (Heparin 10,000 Units/10 Ml) 1,000 unit IV [facility] PRN PRN Reason: hemodialysis Hydralazine HCl (Apresoline) 10 mg IV Q4HR PRN PRN Reason: Hypertension Last Admin: 12/21/18 08:18 Dose: 10 mg Documented by: Hydralazine HCl (Apresoline) 25 mg PO TID KIKI Insulin Human Regular 100 (units/ Sodium Chloride) 100 mls @ 1 mls/hr IV TITR KIKI; Protocol Last Admin: 12/21/18 12:26 Dose: 7 units/hr, 7 mls/hr Documented by: Sodium Chloride (Nacl 0.9%) 100 mls @ 999 mls/hr IV [place] PRN PRN Reason: Hypotension Insulin Glargine (Lantus) 30 units SUB-Q QHS [facility] Lisinopril (Zestril) 2.5 mg PO QDAY [facility] Last Admin: 12/21/18 09:35 Dose: 2.5 mg Documented by: Multivit/Ca Carb/B Cmplx/FA/Prenat (Renal Caps) 1 cap PO QDAY [facility] Nitroglycerin (Nitrostat) 0.4 mg SL .Q5MIN PRN PRN Reason: Chest Pain Tramadol HCl (Ultram) 50 mg PO Q6H PRN PRN Reason: Pain Review of Systems All systems: negative (Constitutional: no fever or chills. No anorexia or weight loss. HEENT: No sore throat or sinus drainage no hearing or vision impairment . Cardiovascular: The history of present illness Respiratory: See history of present illness. Gastrointestinal: abdominal pain and nausea. No vomiting, diarrhea, hematemesis or melena. Genitourinary: No frequency urgency dysuria or hematuria. hematologic: No abnormal bleeding or bruising. Integumentary: no pruritus or rash. Neurological: No headache no focal weakness or numbness, no syncope or seizures. Musculoskeletal: No joint pains no stiffness. Psychiatry: Admits to anxiety but no depression) Exam - Vital Signs Vital signs: Vital Signs Temp Pulse Resp BP Pulse Ox 98.3 F 106 H 24 237/99 88 12/21/18 02:41 12/21/18 02:41 12/21/18 02:41 12/21/18 02:41 12/21/18 02:41 - Physical Exam Narrative exam: Middle aged -[place] male lying In bed on oxygen via NC HEENT: NCAT, pink oral mucous membrane Neck: Supple, no venous distention CVS: S1S2 RRR with no murmur, rub or gallop Chest: Diminished breath sounds with few rales in [place] Abdomen: Protuberant, soft, nontender, no organomegaly, bowel sounds are present Extremities: No edema Skin: Hypopigmented Genitourinary deferred Neuro: Awake, alert no focal deficits Results - Lab Results 12/21/18 03:19 12/21/18 16:15 Most recent lab results Calcium 9.2 mg/dL (8.4-10.2) 12/21/18 16:15 Phosphorus 2.70 mg/dL (2.5-4.5) 12/21/18 13:10 Magnesium 1.80 mg/dL (1.7-2.3) 12/21/18 13:10 Assessment and Plan - Patient Problems (1) Other fluid overload Current Visit: Yes Status: Acute Plan to address problem: Secondary to fluid administration with chemotherapy. We'll discuss with chemotherapy about decreasing fluid administration with chemotherapy if feasible. Fluid removal with dialysis today and then reevaluate tomorrow (2) Acute respiratory failure with hypoxia Current Visit: Yes Status: Acute Plan to address problem: Secondary to pulmonary edema secondary to fluid overload. Respiratory management by primary attending/customs compliance specialist (3) Hyponatremia Current Visit: Yes Status: Acute Plan to address problem: Hypovolemic. Follow-up sodium following dialysis (4) Hypertensive urgency Current Visit: Yes Status: Acute Plan to address problem: Suspect volume related. Patients receiving intravenous medications for blood pressure. Follow blood pressure following fluid removal on dialysis (5) End-stage renal disease needing dialysis Current Visit: No Status: Acute Plan to address problem: Hemodialysis today and then reevaluate for status tomorrow. (6) Type 2 diabetes mellitus with diabetic chronic kidney disease Current Visit: Yes Status: Acute Plan to address problem: Blood Sugar management by primary attending (7) Pancreatic cancer Current Visit: Yes Status: Acute Plan to address problem: Recently diagnosed. Patient getting chemotherapy. We'll discuss with oncologist about decreasing fluid administration with chemotherapy sessions
[2018-12-21] MEDS: APRESOLINE PO SCH (20:21)
[2018-12-21] MEDS: PERCOCET 5/325 PO PRN (21:54)
[2018-12-21] MEDS: COREG PO SCH (21:55)
[2018-12-21] MEDS: LANTUS SUB-Q SCH (21:56)
[2018-12-21] MEDS ORDERED: INSULIN DETEMIR 30 UNIT SUB-Q SCH (22:00)
[2018-12-22 00:23] LABS: Calcium 8.6 mg/dL (8.4-10.2)
[2018-12-22 05:35] LABS: Calcium 8.8 mg/dL (8.4-10.2)
[2018-12-22] MEDS: APRESOLINE PO SCH ×4 (08:26→22:04)
[2018-12-22] MEDS: PEPCID PO SCH ×2 (08:26→09:06)
[2018-12-22] MEDS: HumaLOG SUB-Q SCH ×7 (09:03→22:20)
--- NOTE | 2018-12-22 09:03 | Consultation ---
History of Present Illness Consult date: 12/22/18 Requesting physician: OKSANA HOWARD Reason for consult: dyspnea, hypoxemia History of present illness: Patient is a 63-year-old male with PMHx ESRD on HD (TTS), pancreatic cancer (dx on October 2018, currently on chemotherapy), hypertension who presents to the ER with complaints of SOB. Patient states that he woke up with severe shortness of breath, he was unable to catch his breath, his son drove him to the ER for evaluation. Patient states that he started chemotherapy 2 weeks ago on Wednesday, he received a lot of fluid in chemotherapy, after undergoing HD that day. Patient states that he can hear his lung crackling due to fluid overload, he reports sudden cough productive of white sputum, he denies chest pain, denies lower extremity pain or swelling, denies fever, denies chills. Patient states he feels that is getting fluid overloaded in chemotherapy and not enough HD time which cause his symptoms. On arrival to the ER, patient's O2 sat was 88%, his O2 sat continued to decline he was placed on a BiPAP and supplemental oxygen with improvement of his symptoms. He was admitted to the ICU and I have been consulted for critical care management. Patient was seen and examined. Vitals, labs, medications, chart and imaging were reviewed. He received one session of HD with marked improvement in his symptoms. He is currently on oxygen at 3l/in via [place] and is breathing better Past History Past Medical History: anemia, cancer, COPD, diabetes, ESRD Past Surgical History: Other (failed upper extremity AV accesses, AV right femoral AV graft placement, percutaneous transluminal angioplasty to lower extremity vasculature) Social history: no significant social history, smoking (decrease to 2 cigarettes per day), other (originally from [facility] where he worked for the [employer] for the [employer]. Lived in [place] for 20 years worked in [employer]ra[employer] and [employer]. Currently disabled and lives with his son). denies: alcohol abuse (quit drinking alcohol years ago), prescription drug abuse, IV drug use Family history: cancer ( of lung cancer. One sister of brain cancer and breast cancer.), diabetes (father of complications of diabetes [facility]), other (one brother has end-stage renal disease) Medications and Allergies Allergies Allergy/AdvReac Type Severity Reaction Status Date / Time morphine Allergy Swelling Verified 11/29/18 04:52 Home Medications Medication Instructions Recorded Confirmed Last Taken Type AtorvaSTATin [Lipitor] 40 mg PO QHS 04/27/17 12/21/18 12/20/18 History Vit B Comp No.3/Folic/C/Biotin 1 each PO DAILY 04/27/17 12/21/18 12/20/18 History [Carisa-Sonya Rx Tablet] traMADol [Ultram 50 MG tab] 50 mg PO Q6H PRN 04/27/17 12/21/18 12/20/18 History Amlodipine Besylate [Norvasc] 10 mg PO QDAY 08/04/18 12/21/18 12/20/18 History Aspirin [Adult Low Dose Aspirin EC] 81 mg PO DAILY 08/04/18 12/21/18 12/20/18 History Carvedilol 25 mg PO BID 08/04/18 12/21/18 12/20/18 History Insulin Aspart [NovoLOG 100 10 units SUB-Q PRN 08/04/18 12/21/18 12/20/18 History UNITS/ML VIAL] Insulin Detemir [Levemir Flextouch] 30 units SUB-Q QHS 08/04/18 12/21/18 12/20/18 History Ranitidine HCl [Zantac] 150 mg PO QDAY 08/04/18 12/21/18 12/20/18 History hydrALAZINE [Apresoline TAB] 25 mg PO TID 08/04/18 12/21/18 12/20/18 History oxyCODONE /ACETAMINOPHEN [Percocet 2 tab PO Q6H PRN #30 tablet 12/23/18 Unknown Rx 5/325 mg] Active Meds: Active Medications Amlodipine Besylate (Norvasc) 10 mg PO QDAY [facility] Aspirin (Halfprin Ec) 81 mg PO DAILY [facility] Atorvastatin Calcium (Lipitor) 40 mg PO QHS [facility] Last Admin: 12/21/18 21:55 Dose: 40 mg Documented by: Carvedilol (Coreg) 25 mg PO BID [facility] Last Admin: 12/21/18 21:55 Dose: 25 mg Documented by: Dextrose (D50w (25gm) Syringe) 0 ml IV PRN PRN PRN Reason: Hypoglycemia Famotidine (Pepcid) 20 mg PO DAILY [facility] Last Admin: 12/22/18 08:26 Dose: Not Given Documented by: Heparin Sodium (Porcine) (Heparin 10,000 Units/10 Ml) 1,000 unit IV PRESTON PRN PRN Reason: hemodialysis Hydralazine HCl (Apresoline) 10 mg IV Q4HR PRN PRN Reason: Hypertension Last Admin: 12/21/18 08:18 Dose: 10 mg Documented by: Hydralazine HCl (Apresoline) 25 mg PO TID [facility] Last Admin: 12/22/18 08:26 Dose: Not Given Documented by: Insulin Human Regular 100 (units/ Sodium Chloride) 100 mls @ 1 mls/hr IV TITR [facility]; Protocol Last Titration: 12/21/18 16:15 Dose: 0 units/hr, 0 mls/hr Documented by: Sodium Chloride (Nacl 0.9%) 100 mls @ 999 mls/hr IV PRESTON PRN PRN Reason: Hypotension Insulin Glargine (Lantus) 30 units SUB-Q QHS [facility] Last Admin: 12/21/18 21:56 Dose: 30 units Documented by: Insulin Human Lispro (Humalog) 5 unit SUB-Q AC [facility] Insulin Human Lispro (Humalog) 0 unit SUB-Q ACHS [facility]; Protocol Lisinopril (Zestril) 2.5 mg PO QDAY [facility] Last Admin: 12/21/18 09:35 Dose: 2.5 mg Documented by: Multivit/Ca Carb/B Cmplx/FA/Prenat (Renal Caps) 1 cap PO QDAY [facility] Nitroglycerin (Nitrostat) 0.4 mg SL .Q5MIN PRN PRN Reason: Chest Pain Oxycodone/Acetaminophen (Percocet 5/325) 2 tab PO Q6H PRN PRN Reason: Pain, Moderate (4-6) Last Admin: 12/21/18 21:54 Dose: 2 tab Documented by: Review of Systems Constitutional: weight gain, fatigue, no fever, no chills, no sweats, no night sweats Cardiovascular: edema, shortness of breath, no chest pain, no rapid/irregular heart beat, no syncope, no lightheadedness Respiratory: shortness of breath, congestion, wheezing, no cough, no cough with sputum, no hemoptysis, no pain on inspiration, no snoring Gastrointestinal: no abdominal pain, no nausea, no vomiting, no diarrhea, no constipation Rectal: no pain, no incontinence, no bleeding Musculoskeletal: no neck stiffness, no neck pain, no arm numbness/tingling, no low back pain, no shooting leg pain Neurological: no paralysis, no weakness, no parathesias, no seizures, no syncope, no tremors Psychiatric: no anxiety, no memory loss, no change in sleep habits, no suicidal ideation, no irritability, no sadness/tearfullness, no mood swings Physical Examination Vital signs: Vital Signs Temp Pulse Resp BP Pulse Ox 98.3 F 106 H 24 237/99 88 12/21/18 02:41 12/21/18 02:41 12/21/18 02:41 12/21/18 02:41 12/21/18 02:41 Reviewed General appearance: no acute distress, alert Eyes: non-icteric ENT: oropharynx dry Neck: supple, no lymphadenopathy, no JVD Effort: mildly labored Ascultation: Bilateral: diminished breath sounds, rales (at the bases bilaterally) Cardiovascular: regular rate and rhythm, other (S1,S2, no murmrus) Gastrointestinal: normoactive bowel sounds, soft, non-tender Integumentary: normal Extremities: no cyanosis, no edema, pulses normal, no ischemia or petechiae Musculoskeletal: no deformities normal mental status, non-focal exam, pupils equal and round, motor strength normal and mood appropriate, affect normal Results - Laboratory Findings CBC and BMP: 12/21/18 03:19 12/22/18 15:45 PT/INR, D-dimer PT 13.8 Sec. (12.2-14.9) 12/21/18 03:19 INR 1.00 (0.87-1.13) 12/21/18 03:19 Abnormal lab findings: Abnormal Labs 12/21/18 12/21/18 12/21/18 03:19 03:19 03:19 RBC 2.99 L Hgb 10.5 L Hct 31.1 L MCV 104 H MCH 35 H RDW 21.7 H Sodium 132 L Chloride 87.1 L BUN 31 H Creatinine 4.7 H Glucose 501 H* POC Glucose Hemoglobin A1c Troponin T 0.129 H* NT-Pro-B Natriuret Pep 40246 H Triglycerides 595 H HDL Cholesterol 27 L Hepatitis C Antibody 12/21/18 12/21/18 12/21/18 08:41 09:44 10:55 RBC Hgb Hct MCV MCH RDW Sodium Chloride BUN Creatinine Glucose POC Glucose > 500 H 482 H 426 H Hemoglobin A1c Troponin T NT-Pro-B Natriuret Pep Triglycerides HDL Cholesterol Hepatitis C Antibody 12/21/18 12/21/18 12/21/18 12:21 13:10 13:10 RBC Hgb Hct MCV MCH RDW Sodium 133 L Chloride 87.8 L BUN 36 H Creatinine 5.1 H Glucose 528 H* POC Glucose 390 H Hemoglobin A1c 7.9 H Troponin T 0.153 H* NT-Pro-B Natriuret Pep Triglycerides HDL Cholesterol Hepatitis C Antibody 12/21/18 12/21/18 12/21/18 13:38 15:26 16:15 RBC Hgb Hct MCV MCH RDW Sodium 136 L Chloride 92.6 L BUN 38 H Creatinine 5.7 H Glucose 141 H POC Glucose 333 H 200 H Hemoglobin A1c Troponin T NT-Pro-B Natriuret Pep Triglycerides HDL Cholesterol Hepatitis C Antibody 12/21/18 12/21/18 12/21/18 16:15 21:19 23:45 RBC Hgb Hct MCV MCH RDW Sodium 135 L Chloride 93.4 L BUN 23 H Creatinine 4.0 H Glucose 299 H POC Glucose 274 H Hemoglobin A1c Troponin T NT-Pro-B Natriuret Pep Triglycerides HDL Cholesterol Hepatitis C Antibody Reactive A 12/22/18 12/22/18 04:34 08:37 RBC Hgb Hct MCV MCH RDW Sodium 134 L Chloride 92.4 L BUN 25 H Creatinine 4.4 H Glucose 276 H POC Glucose 243 H Hemoglobin A1c Troponin T NT-Pro-B Natriuret Pep Triglycerides HDL Cholesterol Hepatitis C Antibody - Diagnostic Findings Chest x-ray: image reviewed (Billateral alveolar infiltrates, no pleural effusion) Assessment and Plan Acute hyoxia with alveolar edema/volume overload Acute dyspnea (due to above) ESRD on HD (TTS) Pancreatic Ca on chemotherapy Accelerated hypertension Hyperlipidemia Hyponatremia Anemia (multifactorial (chemotherapy, CKD, chronic disease, nutritional) Tobacco use disorder/Nicotine dependence NSTEMI- type 2 ischemia Elevated BNP Moderate protein calorie malnutrition -Supplemental oxygen to keep O2 sats>90% -Supportive HD/UF, will get a second session today -VTE prophylaxis -Accuchecks with glycemic control -Follow up CXR in the next 48 hours -Serial troponins -Smoking cessation done at the bedside, he is trying to quit. States he no longer buys packets of cigarettes, only singles -Blood pressure control, resume chronic home medications -Nutritional support, chronically ill looking with moderate protein calorie malnutrition -PT/OT, increase activity -Monitor electrolyte profile -Will need conversations between Renal and Oncology re volume management while he gets his chemotherapy. PROGNOSIS: GUARDED CONDITION: CRITICAL CODE STATUS: FULL Thank you for this consult Will follow
[2018-12-22] MEDS: PERCOCET 5/325 PO PRN ×3 (09:04→22:07)
[2018-12-22] MEDS: COREG PO SCH ×2 (09:05→22:04)
[2018-12-22] MEDS: HALFPRIN EC PO SCH (09:05)
[2018-12-22] MEDS: NORVASC PO SCH (09:06)
[2018-12-22] MEDS: Renal Caps PO SCH (09:08)
[2018-12-22] MEDS: ZESTRIL PO SCH ×2 (09:09→16:02)
[2018-12-22] MEDS: APRESOLINE IV PRN (12:19)
--- NOTE | 2018-12-22 13:02 | Consultation ---
History of Present Illness Consult date: 12/22/18 Requesting physician: OKSANA HOWARD Consult reason: elevated troponin History of present illness: The pt is a 60-year-old male with a past medical history of HFpEF, ESRD on HD, HTN, DM, pancreatic cancer. He has been seen by our practice on prior hospitalization. Patient was recently diagnosed with pancreatic cancer and is getting chemotherapy. Patient has dialysis on Tuesdays and then goes for chemotherapy after that. After receiving chemotherapy at the medical oncology clinic, he continues with an infusion which lasts till Wednesday and then he does dialysis on Fridays. Patient says he gets about 3 bags of fluid and chemotherapy and has been having problems with fluid overload. His BPs have also been high. He received chemotherapy on Wednesday and then went home and took a nap. He woke up with severe SOB. In the ER O2 sat was 88%, admission BP 237/99. CXR with HF. Pt denies any chest pain, palpitations, n/v, diaphoresis, dizziness or syncope. Echo done 04/2017 showed moderate LVH, EF 55-60%, grade II diastolic dysfunction, LA dilated, mild TR. Past History Past Medical History: cancer, diabetes, ESRD, hypertension Social history: no significant social history, smoking (decrease to 2 cigarettes per day), other (originally from [facility] where he worked for the [employer] for the [employer]. Lived in [place] for 20 years worked in [employer] and [employer]. Currently disabled and lives with his son). denie s: alcohol abuse (quit drinking alcohol years ago), prescription drug abuse, IV drug use Family history: cancer ( of lung cancer. One sister of brain cancer and breast cancer.), diabetes (father of complications of diabetes mellitus), other (one brother has end-stage renal disease) Medications and Allergies Allergies Allergy/AdvReac Type Severity Reaction Status Date / Time morphine Allergy Swelling Verified 11/29/18 04:52 Home Medications Medication Instructions Recorded Confirmed Last Taken Type AtorvaSTATin [Lipitor] 40 mg PO QHS 04/27/17 12/21/18 12/20/18 History Vit B Comp No.3/Folic/C/Biotin 1 each PO DAILY 04/27/17 12/21/18 12/20/18 History [Carisa-Sonya Rx Tablet] traMADol [Ultram 50 MG tab] 50 mg PO Q6H PRN 04/27/17 12/21/18 12/20/18 History Amlodipine Besylate [Norvasc] 10 mg PO QDAY 08/04/18 12/21/18 12/20/18 History Aspirin [Adult Low Dose Aspirin EC] 81 mg PO DAILY 08/04/18 12/21/18 12/20/18 History Carvedilol 25 mg PO BID 08/04/18 12/21/18 12/20/18 History Insulin Aspart [NovoLOG 100 10 units SUB-Q PRN 08/04/18 12/21/18 12/20/18 History UNITS/ML VIAL] Insulin Detemir [Levemir Flextouch] 30 units SUB-Q QHS 08/04/18 12/21/18 12/20/18 History Ranitidine HCl [Zantac] 150 mg PO QDAY 08/04/18 12/21/18 12/20/18 History hydrALAZINE [Apresoline TAB] 25 mg PO TID 08/04/18 12/21/18 12/20/18 History Active Meds: Active Medications Amlodipine Besylate (Norvasc) 10 mg PO QDAY [facility] Last Admin: 12/22/18 09:06 Dose: 10 mg Documented by: Aspirin (Halfprin Ec) 81 mg PO DAILY [facility] Last Admin: 12/22/18 09:05 Dose: 81 mg Documented by: Atorvastatin Calcium (Lipitor) 40 mg PO QHS [facility] Last Admin: 12/21/18 21:55 Dose: 40 mg Documented by: Carvedilol (Coreg) 25 mg PO BID [facility] Last Admin: 12/22/18 09:05 Dose: 25 mg Documented by: Dextrose (D50w (25gm) Syringe) 0 ml IV PRN PRN PRN Reason: Hypoglycemia Famotidine (Pepcid) 20 mg PO DAILY [facility] Last Admin: 12/22/18 09:06 Dose: 20 mg Documented by: Heparin Sodium (Porcine) (Heparin 10,000 Units/10 Ml) 1,000 unit IV PRESTON PRN PRN Reason: hemodialysis Hydralazine HCl (Apresoline) 10 mg IV Q4HR PRN PRN Reason: Hypertension Last Admin: 12/22/18 12:19 Dose: 10 mg Documented by: Hydralazine HCl (Apresoline) 25 mg PO TID [facility] Last Admin: 12/22/18 09:04 Dose: 25 mg Documented by: Insulin Human Regular 100 (units/ Sodium Chloride) 100 mls @ 1 mls/hr IV TITR [facility]; Protocol Last Titration: 12/21/18 16:15 Dose: 0 units/hr, 0 mls/hr Documented by: Sodium Chloride (Nacl 0.9%) 100 mls @ 999 mls/hr IV PRESTON PRN PRN Reason: Hypotension Insulin Glargine (Lantus) 30 units SUB-Q QHS [facility] Last Admin: 12/21/18 21:56 Dose: 30 units Documented by: Insulin Human Lispro (Humalog) 5 unit SUB-Q AC [facility] Last Admin: 12/22/18 12:20 Dose: 5 unit Documented by: Insulin Human Lispro (Humalog) 0 unit SUB-Q ACHS [facility]; Protocol Last Admin: 12/22/18 12:21 Dose: 3 unit Documented by: Lisinopril (Zestril) 2.5 mg PO QDAY [facility] Last Admin: 12/22/18 09:09 Dose: 2.5 mg Documented by: Multivit/Ca Carb/B Cmplx/FA/Prenat (Renal Caps) 1 cap PO QDAY [facility] Last Admin: 12/22/18 09:08 Dose: 1 cap Documented by: Nitroglycerin (Nitrostat) 0.4 mg SL .Q5MIN PRN PRN Reason: Chest Pain Oxycodone/Acetaminophen (Percocet 5/325) 2 tab PO Q6H PRN PRN Reason: Pain, Moderate (4-6) Last Admin: 12/22/18 09:04 Dose: 2 tab Documented by: Review of Systems Constitutional: no weight loss, no weight gain, no fever, no chills, no sweats Ears, nose, mouth and throat: no ear pain, no nose pain, no sinus pressure, no sinus pain Cardiovascular: orthopnea, shortness of breath, dyspnea on exertion, paroxysmal nocturnal dyspnea, high blood pressure, no chest pain, no palpitations, no rapid/irregular heart beat, no edema, no syncope, no lightheadedness, no leg edema Respiratory: shortness of breath, dyspnea on exertion, no cough, no congestion, no wheezing, no pain on inspiration Gastrointestinal: no abdominal pain, no nausea, no vomiting, no diarrhea, no constipation, no change in bowel habits Genitourinary Male: no dysuria, no hematuria, no flank pain, no discharge, no urinary frequency, no urinary hesitancy Musculoskeletal: no neck stiffness, no neck pain, no shooting arm pain, no arm numbness/tingling, no low back pain, no shooting leg pain Integumentary: no rash, no pruritis, no redness, no sores, no wounds Neurological: no head injury, no paralysis, no weakness, no parathesias, no numbness, no tingling, no seizures, no syncope Psychiatric: no anxiety Endocrine: no cold intolerance, no heat intolerance Hematologic/Lymphatic: no easy bruising, no easy bleeding Allergic/Immunologic: no urticaria, no wheezing Physical Examination Vital Signs Temp Pulse Resp BP Pulse Ox 98.3 F 106 H 24 237/99 88 12/21/18 02:41 12/21/18 02:41 12/21/18 02:41 12/21/18 02:41 12/21/18 02:41 General appearance: no acute distress HEENT: Positive: PERRL, Normocephaly, Mucus Membranes Moist Neck: Positive: neck supple, trachea midline Cardiac: Positive: Reg Rate and Rhythm, S1/S2, Systolic Murmur Lungs: Positive: Decreased Breath Sounds Neuro: Positive: Grossly Intact Abdomen: Positive: Soft. Negative: Tender Skin: Negative: Rash, Wound Musculoskeletal: No Pain Extremities: Absent: edema Results 12/21/18 03:19 12/22/18 04:34 Comprehensive Metabolic Panel 12/21/18 12/21/18 12/21/18 Range/Units 13:10 16:15 23:45 Sodium 133 L 136 L 135 L (137-145) mmol/L Potassium 4.8 4.0 4.2 (3.6-5.0) mmol/L Chloride 87.8 L 92.6 L 93.4 L (98-107) mmol/L Carbon Dioxide 27 28 27 (22-30) mmol/L BUN 36 H 38 H 23 H (9-20) mg/dL Creatinine 5.1 H 5.7 H 4.0 H (0.8-1.5) mg/dL Glucose 528 H* 141 H 299 H (75-100) mg/dL Calcium 8.9 9.2 8.6 (8.4-10.2) mg/dL 12/22/18 Range/Units 04:34 Sodium 134 L (137-145) mmol/L Potassium 4.4 (3.6-5.0) mmol/L Chloride 92.4 L (98-107) mmol/L Carbon Dioxide 27 (22-30) mmol/L BUN 25 H (9-20) mg/dL Creatinine 4.4 H (0.8-1.5) mg/dL Glucose 276 H (75-100) mg/dL Calcium 8.8 (8.4-10.2) mg/dL - Imaging and Cardiology Echo: report reviewed ( 04/2017 showed moderate LVH, EF 55-60%, grade II diastolic dysfunction, LA dilated, mild TR. ) EKG: report reviewed, image reviewed EKG interpretations - Telemetry EKG Rhythm: Sinus Rhythm - EKG Sinus rhythms and dysrhythmias: sinus rhythm Assessment and Plan Volume optimization per nephrology. Optimize anti-hypertensive regimen - increase lisinopril and hydralazine dosages. Troponin elevation appears c/w NSTEMI type II, ECG with no acute ischemic changes, pt denies chest pain. Cont to trend Gideon and repeat ECG in AM. F/u echo. Further recs to follow per hospital course. The patient has been seen in conjunction with Dr. Grace who agrees with the assessment and plan of care. - Patient Problems (1) Acute heart failure with preserved ejection fraction Current Visit: Yes Status: Acute (2) Volume overload Current Visit: Yes Status: Acute (3) Hypertensive emergency Current Visit: Yes Status: Acute (4) ESRD (end stage renal disease) Current Visit: Yes Status: Chronic (5) Pancreatic cancer Current Visit: Yes Status: Chronic (6) NSTEMI (non-ST elevated myocardial infarction) Current Visit: Yes Status: Acute Plan to address problem: type II (7) Diabetes mellitus with hyperglycemia Current Visit: Yes Status: Acute
[2018-12-22] MEDS ORDERED: ZESTRIL PO SCH (13:17)
[2018-12-22 16:30] LABS: Calcium 8.9 mg/dL (8.4-10.2)
[2018-12-22 16:32] LABS: Creatine Kinase MB 1.2 ng/mL (0.0-4.0)
--- NOTE | 2018-12-22 19:01 | Progress Note ---
Assessment and Plan - Patient Problems (1) Other fluid overload Current Visit: Yes Status: Acute Plan to address problem: Secondary to fluid administration with chemotherapy. We'll discuss with chemotherapy about decreasing fluid administration with chemotherapy if feasible. Hemodialysis again tomorrow. Do not believe patient will be able to tolerate another dialysis treatment today (2) Acute respiratory failure with hypoxia Current Visit: Yes Status: Acute Plan to address problem: Secondary to pulmonary edema secondary to fluid overload. Much better. Respiratory management by primary attending/ignition specialist (3) Hyponatremia Current Visit: Yes Status: Acute Plan to address problem: Hypervolemic. Sodium is not significantly changed. Follow-up sodium following dialysis (4) Hypertensive urgency Current Visit: Yes Status: Acute Plan to address problem: Suspect volume related. Blood pressure has improved. Follow blood pressure on current medications (5) End-stage renal disease needing dialysis Current Visit: No Status: Acute Plan to address problem: Hemodialysis again in the morning (6) Type 2 diabetes mellitus with diabetic chronic kidney disease Current Visit: Yes Status: Acute Plan to address problem: Blood Sugar management by primary attending (7) Pancreatic cancer Current Visit: Yes Status: Chronic Plan to address problem: Recently diagnosed. Patient getting chemotherapy. We'll discuss with oncologist about decreasing fluid administration with chemotherapy sessions Subjective Date of service: 12/22/18 Principal diagnosis: anesthesia disease with fluid overload Interval history: Patient seen lying in bed this afternoon. He had no complaints. Feeling better. Shortness of breath improving Objective - Exam Narrative Exam: Middle aged -[place] male lying In bed in no acute distress HEENT: NCAT, pink oral mucous membrane Neck: Supple, no venous distention CVS: S1S2 RRR with no murmur, rub or gallop Chest: Diminished breath sounds but improved Abdomen: Protuberant, soft, nontender, no organomegaly, bowel sounds are present Extremities: No edema Skin: Hypopigmented Genitourinary deferred Neuro: Awake, alert no focal deficits - Vital Signs Vital signs: Vital Signs - 12hr 12/22/18 12/22/18 12/22/18 07:01 07:15 07:30 Temperature Pulse Rate 75 73 74 Respiratory 18 18 19 Rate Blood Pressure 187/76 187/76 176/78 O2 Sat by Pulse 91 94 92 Oximetry 12/22/18 12/22/18 12/22/18 07:45 08:00 08:15 Temperature 97.3 F L Pulse Rate 70 75 74 Respiratory 19 19 20 Rate Blood Pressure 176/78 179/76 192/81 O2 Sat by Pulse 97 95 95 Oximetry 12/22/18 12/22/18 12/22/18 08:31 08:45 09:01 Temperature Pulse Rate 78 76 87 Respiratory 21 19 13 Rate Blood Pressure 169/82 169/82 170/73 O2 Sat by Pulse 95 98 82 L Oximetry 12/22/18 12/22/18 12/22/18 09:04 09:05 09:06 Temperature Pulse Rate 86 90 90 Respiratory Rate Blood Pressure 187/87 187/87 187/87 O2 Sat by Pulse Oximetry 12/22/18 12/22/18 12/22/18 09:09 09:15 09:30 Temperature Pulse Rate 86 80 82 Respiratory 19 9 L Rate Blood Pressure 187/87 187/87 156/65 O2 Sat by Pulse 100 94 Oximetry 12/22/18 12/22/18 12/22/18 09:45 10:01 10:15 Temperature Pulse Rate 81 83 81 Respiratory 18 18 19 Rate Blood Pressure 187/87 164/56 164/56 O2 Sat by Pulse 95 93 95 Oximetry 12/22/18 12/22/18 12/22/18 10:31 10:41 10:59 Temperature 98.1 F Pulse Rate 97 H 88 Respiratory 19 17 18 Rate Blood Pressure 164/56 164/56 185/83 O2 Sat by Pulse 95 95 Oximetry 12/22/18 12/22/18 12/22/18 12:19 16:01 16:02 Temperature Pulse Rate 83 84 84 Respiratory Rate Blood Pressure 185/83 158/70 158/70 O2 Sat by Pulse Oximetry 12/22/18 16:27 Temperature 97.1 F L Pulse Rate Respiratory 18 Rate Blood Pressure 148/78 O2 Sat by Pulse Oximetry - Lab 12/21/18 03:19 12/22/18 15:45 Most recent lab results Calcium 8.9 mg/dL (8.4-10.2) 12/22/18 15:45 Phosphorus 2.70 mg/dL (2.5-4.5) 12/21/18 13:10 Magnesium 1.80 mg/dL (1.7-2.3) 12/21/18 13:10 Medications & Allergies - Medications Allergies/Adverse Reactions: Allergies morphine Allergy (Verified 11/29/18 04:52) Swelling Home Medications: Home Medications Medication Instructions Recorded Confirmed Last Taken Type AtorvaSTATin [Lipitor] 40 mg PO QHS 04/27/17 12/21/18 12/20/18 History Vit B Comp No.3/Folic/C/Biotin 1 each PO DAILY 04/27/17 12/21/18 12/20/18 History [Carisa-Sonya Rx Tablet] traMADol [Ultram 50 MG tab] 50 mg PO Q6H PRN 04/27/17 12/21/18 12/20/18 History Amlodipine Besylate [Norvasc] 10 mg PO QDAY 08/04/18 12/21/18 12/20/18 History Aspirin [Adult Low Dose Aspirin EC] 81 mg PO DAILY 08/04/18 12/21/18 12/20/18 History Carvedilol 25 mg PO BID 08/04/18 12/21/18 12/20/18 History Insulin Aspart [NovoLOG 100 10 units SUB-Q PRN 08/04/18 12/21/18 12/20/18 Hist ory UNITS/ML VIAL] Insulin Detemir [Levemir Flextouch] 30 units SUB-Q QHS 08/04/18 12/21/18 12/20/18 History Ranitidine HCl [Zantac] 150 mg PO QDAY 08/04/18 12/21/18 12/20/18 History hydrALAZINE [Apresoline TAB] 25 mg PO TID 08/04/18 12/21/18 12/20/18 History Active Medications: Generic Name Dose Route Start Last Admin Trade Name Freq PRN Reason Stop Dose Admin Amlodipine Besylate 10 mg 12/22/18 10:00 12/22/18 09:06 Norvasc PO 10 mg QDAY KIKI Administration Aspirin 81 mg 12/22/18 10:00 12/22/18 09:05 Halfprin Ec PO 81 mg DAILY KIKI Administration Atorvastatin Calcium 40 mg 12/21/18 22:00 12/21/18 21:55 Lipitor PO 40 mg QHS KIKI Administration Carvedilol 25 mg 12/21/18 22:00 12/22/18 09:05 Coreg PO 25 mg BID KIKI Administration Dextrose 0 ml 12/21/18 11:48 D50w (25gm) Syringe IV PRN PRN Hypoglycemia Famotidine 20 mg 12/21/18 14:00 12/22/18 09:06 Pepcid PO 20 mg DAILY KIKI Administration Heparin Sodium (Porcine) 1,000 unit 12/21/18 15:22 Heparin 10,000 Units/10 Ml IV PRESTON PRN hemodialysis Hydralazine HCl 50 mg 12/22/18 14:30 12/22/18 16:01 Apresoline PO 50 mg TID KIKI Administration Insulin Human Regular 100 100 mls @ 1 mls/hr 12/21/18 12:00 12/21/18 16:15 units/ Sodium Chloride IV 0 units/hr TITR KIKI 0 mls/hr Titration Protocol 1 UNITS/HR Sodium Chloride 100 mls @ 999 mls/hr 12/21/18 15:22 Nacl 0.9% IV PRESTON PRN Hypotension Insulin Glargine 30 units 12/21/18 22:00 12/21/18 21:56 Lantus SUB-Q 30 units QHS KIKI Administration Insulin Human Lispro 5 unit 12/22/18 07:30 12/22/18 18:07 Humalog SUB-Q 5 unit AC KIKI Administration Insulin Human Lispro 0 unit 12/22/18 07:30 12/22/18 18:08 Humalog SUB-Q 3 unit ACHS KIKI Administration Protocol Lisinopril 20 mg 12/22/18 14:30 12/22/18 16:02 Zestril PO 20 mg QDAY KIKI Administration Multivit/Ca Carb/B Cmplx/FA/Prenat 1 cap 12/22/18 10:00 12/22/18 09:08 Renal Caps PO 1 cap QDAY KIKI Administration Nitroglycerin 0.4 mg 12/21/18 07:42 Nitrostat SL .Q5MIN PRN Chest Pain Oxycodone/Acetaminophen 2 tab 12/21/18 20:08 12/22/18 15:59 Percocet 5/325 PO 2 tab Q6H PRN Administration Pain, Moderate (4-6)
[2018-12-23] MEDS: LANTUS SUB-Q SCH ×2 (00:47→21:10)
--- NOTE | 2018-12-23 08:41 | Progress Note ---
Assessment and Plan - Patient Problems (1) Other fluid overload Current Visit: Yes Status: Acute Plan to address problem: Secondary to fluid administration with chemotherapy. Discussed with Dr. Montgomery about decreasing fluid administration with chemotherapy. They will be able to decrease fluids he gets with chemotherapy to 500 mL instead of >1 liter. Hemodialysis again today. Okay to discharge home after dialysis today from renal standpoint (2) Acute respiratory failure with hypoxia Current Visit: Yes Status: Acute Plan to address problem: Secondary to pulmonary edema secondary to fluid overload. Much better. Respiratory management by primary attending/relay tester (3) Hyponatremia Current Visit: Yes Status: Acute Plan to address problem: Hypervolemic. Sodium is not significantly changed. Follow-up sodium following dialysis (4) Hypertensive urgency Current Visit: Yes Status: Acute Plan to address problem: Suspect volume related. Blood pressure has improved but still high. I agree with adjusting antihypertensive medications. Follow blood pressure on adjusted medications (5) End-stage renal disease needing dialysis Current Visit: No Status: Acute Plan to address problem: Hemodialysis again in the morning (6) Type 2 diabetes mellitus with diabetic chronic kidney disease Current Visit: Yes Status: Acute Plan to address problem: Blood Sugar management by primary attending (7) Pancreatic cancer Current Visit: Yes Status: Chronic Plan to address problem: Recently diagnosed. Patient getting chemotherapy. Discussed with oncologist about decreasing fluid administration with chemotherapy sessions Subjective Date of service: 12/23/18 Principal diagnosis: end-stage renal disease with fluid overload Interval history: Patient seen lying in bed. He has no complaints. Feeling better. Shortness of breath improved Objective - Exam Narrative Exam: Middle aged -Malagasy male lying In bed in no acute distress HEENT: NCAT, pink oral mucous membrane Neck: Supple, no venous distention CVS: S1S2 RRR with no murmur, rub or gallop Chest: Diminished breath sounds but much improved Abdomen: Protuberant, soft, nontender, no organomegaly, bowel sounds are present Extremities: No edema Skin: Hypopigmented Genitourinary deferred Neuro: Awake, alert no focal deficits - Vital Signs Vital signs: Vital Signs - 12hr 12/22/18 12/23/18 12/23/18 23:59 04:52 07:31 Temperature 98.6 F 98.2 F 98.1 F Pulse Rate 82 82 Respiratory 20 20 18 Rate Blood Pressure 157/66 155/65 167/71 O2 Sat by Pulse 97 96 Oximetry - Lab 12/21/18 03:19 12/22/18 15:45 Most recent lab results Calcium 8.9 mg/dL (8.4-10.2) 12/22/18 15:45 Phosphorus 2.70 mg/dL (2.5-4.5) 12/21/18 13:10 Magnesium 1.80 mg/dL (1.7-2.3) 12/21/18 13:10 Medications & Allergies - Medications Allergies/Adverse Reactions: Allergies morphine Allergy (Verified 11/29/18 04:52) Swelling Home Medications: Home Medications Medication Instructions Recorded Confirmed Last Taken Type AtorvaSTATin [Lipitor] 40 mg PO QHS 04/27/17 12/21/18 12/20/18 History Vit B Comp No.3/Folic/C/Biotin 1 each PO DAILY 04/27/17 12/21/18 12/20/18 History [Carisa-Sonya Rx Tablet] traMADol [Ultram 50 MG tab] 50 mg PO Q6H PRN 04/27/17 12/21/18 12/20/18 History Amlodipine Besylate [Norvasc] 10 mg PO QDAY 08/04/18 12/21/18 12/20/18 History Aspirin [Adult Low Dose Aspirin EC] 81 mg PO DAILY 08/04/18 12/21/18 12/20/18 History Carvedilol 25 mg PO BID 08/04/18 12/21/18 12/20/18 History Insulin Aspart [NovoLOG 100 10 units SUB-Q PRN 08/04/18 12/21/18 12/20/18 History UNITS/ML VIAL] Insulin Detemir [Levemir Flextouch] 30 units SUB-Q QHS 08/04/18 12/21/18 12/20/18 History Ranitidine HCl [Zantac] 150 mg PO QDAY 08/04/18 12/21/18 12/20/18 History hydrALAZINE [Apresoline TAB] 25 mg PO TID 08/04/18 12/21/18 12/20/18 History oxyCODONE /ACETAMINOPHEN [Percocet 2 tab PO Q6H PRN #30 tablet 12/23/18 Unknown Rx 5/325 mg] Active Medications: Generic Name Dose Route Start Last Admin Trade Name Freq PRN Reason Stop Dose Admin Amlodipine Besylate 10 mg 12/22/18 10:00 12/22/18 09:06 Norvasc PO 10 mg QDAY KIKI Administration Aspirin 81 mg 12/22/18 10:00 12/22/18 09:05 Halfprin Ec PO 81 mg DAILY KIKI Administration Atorvastatin Calcium 40 mg 12/21/18 22:00 12/22/18 22:04 Lipitor PO 40 mg QHS KIKI Administration Carvedilol 25 mg 12/21/18 22:00 12/22/18 22:04 Coreg PO 25 mg BID KIKI Administration Dextrose 0 ml 12/21/18 11:48 D50w (25gm) Syringe IV PRN PRN Hypoglycemia Famotidine 20 mg 12/21/18 14:00 12/22/18 09:06 Pepcid PO 20 mg DAILY KIKI Administration Heparin Sodium (Porcine) 1,000 unit 12/21/18 15:22 Heparin 10,000 Units/10 Ml IV PRESTON PRN hemodialysis Hydralazine HCl 50 mg 12/22/18 14:30 12/22/18 22:04 Apresoline PO 50 mg TID KIKI Administration Insulin Human Regular 100 100 mls @ 1 mls/hr 12/21/18 12:00 12/21/18 16:15 units/ Sodium Chloride IV 0 units/hr TITR KIKI 0 mls/hr Titration Protocol 1 UNITS/HR Sodium Chloride 100 mls @ 999 mls/hr 12/21/18 15:22 Nacl 0.9% IV PRESTON PRN Hypotension Insulin Glargine 30 units 12/21/18 22:00 12/23/18 00:47 Lantus SUB-Q 30 units QHS KIKI Administration Insulin Human Lispro 5 unit 12/22/18 07:30 12/22/18 18:07 Humalog SUB-Q 5 unit AC KIKI Administration Insulin Human Lispro 0 unit 12/22/18 07:30 12/22/18 22:20 Humalog SUB-Q Not Given ACHS [facility] Protocol Lisinopril 20 mg 12/22/18 14:30 12/22/18 16:02 Zestril PO 20 mg QDAY KIKI Administration Multivit/Ca Carb/B Cmplx/FA/Prenat 1 cap 12/22/18 10:00 12/22/18 09:08 Renal Caps PO 1 cap QDAY KIKI Administration Nitroglycerin 0.4 mg 12/21/18 07:42 Nitrostat SL .Q5MIN PRN Chest Pain Oxycodone/Acetaminophen 2 tab 12/21/18 20:08 12/22/18 22:07 Percocet 5/325 PO 2 tab Q6H PRN Administration Pain, Moderate (4-6)
[2018-12-23] MEDS: HumaLOG SUB-Q SCH ×5 (09:22→21:10)
--- NOTE | 2018-12-23 11:50 | Progress Note ---
Assessment and Plan Assessment and plan: Patient is a 63-year-old male with PMHx ESRD on HD (TTS), pancreatic cancer (dx on October 2018, currently on chemotherapy), hypertension who presents to the ER with complaints of SOB. Patient states that he woke up with severe shortness of breath, he was unable to catch his breath, his son drove him to the ER for evaluation. Patient states that he started chemotherapy 2 weeks ago on Wednesday, he received a lot of fluid in chemotherapy, after undergoing HD that day. Patient states that he can hear his lung crackling due to fluid overload, he reports sudden cough productive of white sputum, he denies chest pain, denies lower extremity pain or swelling, denies fever, denies chills. Patient states h e feels that is getting fluid overloaded in chemotherapy and not enough HD time which cause his symptoms. On arrival to the ER, patient's O2 sat was 88%, his O2 sat continued to decline he was put in a BiPAP for better ventilation, his BNP is pending, patient is admitted for further management of his presenting symptoms. Past History Past Medical History: anemia, cancer, COPD, ESRD 1. Volume overload /pulmonary edema 2. Acute dyspnea (due to above) 3. ESRD on HD (TTS) 4. Pancreatic Ca (chemotherapy) 5. Accelerated hypertension 6. Hyperlipidemia 7. Hyponatremia 8. Anemia (multifactorial (chemotherapy, CKD) Hyperglycemia, Type 2 DM Plan: Patient is admitted for fluid overload, fup echo Fluid restriction Consult nephrology for HD management, cont UF for fluid mgt optimize bp meds insulin for elevated glucose Resume home meds History Interval history: complaining of shortness of breath Review of systems Constitutional: No fevers, no malaise, no joint pains CVS: No chest pain GI: No abdominal pain, no diarrhea, no vomiting, no constipation Respiratory: no wheezing, no coughing Hospitalist Physical - Physical exam Narrative exam: General.: Appears well, no distress, nontoxic HEENT: Moist mucous membranes, extraocular muscles intact, no lymphadenopathy Neck: supple Cardiac: S1-S2 heard Lungs: Decreased air entry, crackles in bases Abdomen: soft , nontender, nondistended, bowel sounds positive Extremities: no edema clubbing or cyanosis Skin: no rash or lesions Neurologic: no gross focal deficits Psych: calm, and cooperative - Constitutional Vitals: Temp Pulse Resp BP Pulse Ox 98.1 F 82 18 167/71 96 12/23/18 07:31 12/23/18 04:52 12/23/18 07:31 12/23/18 07:31 12/23/18 04:52 General appearance: Present: no acute distress Results - Labs CBC & Chem 7: 12/21/18 03:19 12/22/18 15:45 Labs: Laboratory Last Values WBC 7.4 K/mm3 (4.5-11.0) 12/21/18 03:19 RBC 2.99 M/mm3 (3.65-5.03) L 12/21/18 03:19 Hgb 10.5 gm/dl (11.8-15.2) L 12/21/18 03:19 Hct 31.1 % (35.5-45.6) L 12/21/18 03:19 MCV 104 fl (84-94) H 12/21/18 03:19 MCH 35 pg (28-32) H 12/21/18 03:19 MCHC 34 % (32-34) 12/21/18 03:19 RDW 21.7 % (13.2-15.2) H 12/21/18 03:19 Plt Count 179 K/mm3 (140-440) 12/21/18 03:19 Lymph % (Auto) 27.6 % (13.4-35.0) 12/21/18 03:19 [place] % (Auto) 4.5 % (0.0-7.3) 12/21/18 03:19 Eos % (Auto) 1.4 % (0.0-4.3) 12/21/18 03:19 Baso % (Auto) 1.0 % (0.0-1.8) 12/21/18 03:19 Lymph # 2.0 K/mm3 (1.2-5.4) 12/21/18 03:19 [place] # 0.3 K/mm3 (0.0-0.8) 12/21/18 03:19 Eos # 0.1 K/mm3 (0.0-0.4) 12/21/18 03:19 Baso # 0.1 K/mm3 (0.0-0.1) 12/21/18 03:19 Add Manual Diff Complete 12/21/18 03:19 Seg Neutrophils % 65.5 % (40.0-70.0) 12/21/18 03:19 Seg Neutrophils # 4.8 K/mm3 (1.8-7.7) 12/21/18 03:19 PT 13.8 Sec. (12.2-14.9) 12/21/18 03:19 INR 1.00 (0.87-1.13) 12/21/18 03:19 APTT 27.9 Sec. (24.2-36.6) 12/21/18 03:19 Sodium 134 mmol/L (137-145) L 12/22/18 15:45 Potassium 4.2 mmol/L (3.6-5.0) 12/22/18 15:45 Chloride 94.2 mmol/L (98-107) L 12/22/18 15:45 Carbon Dioxide 28 mmol/L (22-30) 12/22/18 15:45 16 mmol/L 12/22/18 15:45 BUN 29 mg/dL (9-20) H 12/22/18 15:45 5.1 mg/dL (0.8-1.5) H 12/22/18 15:45 Estimated GFR 14 ml/min 12/22/18 15:45 6 % 12/22/18 15:45 Glucose 131 mg/dL (75-100) H 12/22/18 15:45 POC Glucose 166 (70-105) H 12/23/18 07:53 7.9 % (4-6) H 12/21/18 13:10 Calcium 8.9 mg/dL (8.4-10.2) 12/22/18 15:45 Phosphorus 2.70 mg/dL (2.5-4.5) 12/21/18 13:10 Magnesium 1.80 mg/dL (1.7-2.3) 12/21/18 13:10 57 units/L (55-170) 12/22/18 15:45 CK-MB (CK-2) 1.2 ng/mL (0.0-4.0) 12/22/18 15:45 CK-MB (CK-2) Rel Index 2.1 (0-4) 12/22/18 15:45 0.121 ng/mL (0.00-0.029) H* D 12/22/18 15:45 NT-Pro-B Natriuret Pep 01414 pg/mL (0-900) H 12/21/18 03:19 Triglycerides 595 mg/dL (2-149) H 12/21/18 03:19 Cholesterol 169 mg/dL (50-199) 12/21/18 03:19 TNR 12/21/18 03:19 27 mg/dL (40-59) L 12/21/18 03:19 6.25 % 12/21/18 03:19 Hepatitis A IgM Ab Non-reactive (NonReactive) 12/21/18 16:15 Hep Bs Antigen Non-reactive (Negative) 12/21/18 16:15 Hep B Core IgM Ab Non-reactive (NonReactive) 12/21/18 16:15 Reactive (NonReactive) A 12/21/18 16:15 Active Medications - Current Medications Current Medications: Generic Name Dose Route Start Last Admin Trade Name Freq PRN Reason Stop Dose Admin Amlodipine Besylate 10 mg 12/23/18 11:00 Norvasc PO QDAY KIKI Aspirin 81 mg 12/22/18 10:00 12/22/18 09:05 Halfprin Ec PO 81 mg DAILY KIKI Administration Atorvastatin Calcium 40 mg 12/21/18 22:00 12/22/18 22:04 Lipitor PO 40 mg QHS KIKI Administration Carvedilol 25 mg 12/21/18 22:00 12/22/18 22:04 Coreg PO 25 mg BID KIKI Administration Dextrose 0 ml 12/21/18 11:48 D50w (25gm) Syringe IV PRN PRN Hypoglycemia Famotidine 20 mg 12/21/18 14:00 12/22/18 09:06 Pepcid PO 20 mg DAILY KIKI Administration Heparin Sodium (Porcine) 1,000 unit 12/21/18 15:22 Heparin 10,000 Units/10 Ml IV PRESTON PRN hemodialysis Hydralazine HCl 50 mg 12/22/18 14:30 12/22/18 22:04 Apresoline PO 50 mg TID KIKI Administration Sodium Chloride 100 mls @ 999 mls/hr 12/21/18 15:22 Nacl 0.9% IV PRESTON PRN Hypotension Insulin Glargine 30 units 12/21/18 22:00 12/23/18 00:47 Lantus SUB-Q 30 units QHS KIKI Administration Insulin Human Lispro 5 unit 12/22/18 07:30 12/23/18 09:22 Humalog SUB-Q 5 unit AC KIKI Administration Insulin Human Lispro 0 unit 12/22/18 07:30 12/23/18 09:22 Humalog SUB-Q 2 unit ACHS KIKI Administration Protocol Lisinopril 20 mg 12/22/18 14:30 12/22/18 16:02 Zestril PO 20 mg QDAY KIKI Administration Multivit/Ca Carb/B Cmplx/FA/Prenat 1 cap 12/22/18 10:00 12/22/18 09:08 Renal Caps PO 1 cap QDAY KIKI Administration Nitroglycerin 0.4 mg 12/21/18 07:42 Nitrostat SL .Q5MIN PRN Chest Pain Oxycodone/Acetaminophen 2 tab 12/21/18 20:08 12/22/18 22:07 Percocet 5/325 PO 2 tab Q6H PRN Administration Pain, Moderate (4-6) Nutrition/Malnutrition Assess - Dietary Evaluation Nutrition/Malnutrition Findings: Nutrition Notes Start: 12/22/18 15:31 Freq: Status: Active Protocol: Document 12/22/18 15:31 RM (Rec: 12/22/18 15:38 RM [id number]) Nutrition Notes Need for Assessment generated from: MD Order Initial or Follow up Assessment Current Diagnosis COPD,Hypertension, Hyperlipidemia Other Pertinent Diagnosis ESRD on HD (T/T/S), panreatic cancer,Volume overload Current Diet Consisent CHO, Renal Labs/Tests Reviewed Pertinent Medications Reviewed Height 5 ft 9 in Weight 59.874 kg [place] Body Weight (kg) 72.72 BMI 19.5 Subjective/Other Information Consulted for nutrition recommendations and DM diet education. Pt asleep at time of visit. Burn Absent Trauma Absent #1 Nutrition Diagnosis Increased nutrient needs ( specify in comment below) Comments: protein Etiology ESRD As Evidenced by Signs and Symptoms on HD Is patient on ventilator? No Is Patient Ambulatory and/or Out of Bed Yes REE-([place]-[facility]. Jeor-ambulatory/OOB) [ [id number] [id number]] Calculation [facility]ations [facility] or Additional Notes Protein Needs: 72-78g (1.2-1. 3g/kg) Fluid Needs: 1 ml/kcal Nutrition Intervention Change Diet Order: Continue current Add Supplement/Snack (indicate name/kcal Nepro 1 daily /protein ) Provides kCal: 425 Provides Protein (gm) 19 Goal #1 Meet at least 75% of calorie and protein needs via PO and ONS intakes Anticipated Discharge Needs: Renal diet Follow-Up By: 12/26/18 Additional Comments Follow for PO intakes, ONS intakes, and DM diet education
--- NOTE | 2018-12-23 11:52 | Discharge Summary ---
Providers - Providers Date of Admission: 12/21/18 05:22 Attending physician: OKSANA HOWARD MD 12/21/18 11:38 Consult to Physician [CONS] Routine Comment: Consulting Provider: RAHAT CERNA Physician Instructions: Reason For Exam: esrd 12/21/18 11:48 Consult to Dietitian/Nutrition [CONS] Routine Physician Instructions: Reason For Exam: DKA Reason for Consult: Nutrition Recommendations Reason for Consult: Diet education 12/21/18 13:13 Consult to PICC Line RN [CONS] Urgent Reason For Exam: midline Type Line:: Midline 12/21/18 19:17 Consult to Physician [CONS] Routine Comment: Consulting Provider: MARIANELA VASQUES Physician Instructions: Reason For Exam: critical care management 12/22/18 07:12 Consult to Physician [CONS] Routine Comment: Consulting Provider: KYA ESTRADA Physician Instructions: Reason For Exam: abnormal troponin Primary care physician: CATALOGUE ILLUSTRATOR Hospitalization Condition: Stable Hospital course: Patient is a 63-year-old male with PMHx ESRD on HD (TTS), pancreatic cancer (dx on October 2018, currently on chemotherapy), hypertension who presents to the ER with complaints of SOB. who recently started chemo who presents sob and hypoxia Past History Past Medical History: anemia, cancer, COPD, ESRD The patient received ultrafiltration with dialysis. His cardiac meds were optimized. He was seen by cardiology, shown to have preserved EF. Insulins were optimized for hyperglycemia. BP meds were optimized Diagnosis 1. Volume overload /pulmonary edema 2. Acute dyspnea (due to above) 3. ESRD on HD (TTS) 4. Pancreatic Ca (chemotherapy) 5. Accelerated hypertension 6. Hyperlipidemia 7. Hyponatremia 8. Anemia (multifactorial (chemotherapy, CKD) 9. persistent Hyperglycemia, Type 2 DM Disposition: DC-01 TO HOME OR SELFCARE Time spent for discharge: 33 mins Core Measure Documentation - Palliative Care Palliative Care/ Comfort Measures: Not Applicable - Core Measures Any of the following diagnoses?: none Exam - Constitutional Vitals: Temp Pulse Resp BP Pulse Ox 98.1 F 82 18 167/71 96 12/23/18 07:31 12/23/18 04:52 12/23/18 07:31 12/23/18 07:31 12/23/18 04:52 General appearance: Present: no acute distress, well-nourished - EENT Eyes: Present: PERRL ENT: hearing intact, clear oral mucosa - Neck Neck: Present: supple, normal ROM - Respiratory Respiratory effort: normal Respiratory: bilateral: CTA - Cardiovascular Heart Sounds: Present: S1 & S2. Absent: rub, click - Extremities Extremities: pulses symmetrical, No edema Peripheral Pulses: within normal limits - Abdominal General gastrointestinal: Present: soft, non-tender, non-distended, normal bowel sounds Male genitourinary: Present: normal - Integumentary Integumentary: Present: clear, warm, dry - Musculoskeletal Musculoskeletal: gait normal, strength equal bilaterally - Psychiatric Psychiatric: appropriate mood/affect, intact judgment & insight - Neurologic Neurologic: CNII-XII intact, moves all extremities Plan Follow up with: PRIMARY CARE,MD [Primary Care Provider] - 3-5 Days Prescriptions: hydrALAZINE [Apresoline TAB] 100 mg PO TID #90 tab Metoprolol [Lopressor TAB] 100 mg PO BID #60 tablet oxyCODONE /ACETAMINOPHEN [Percocet 5/325 mg] 2 tab PO Q6H PRN #30 tablet PRN Reason: Pain, Moderate (4-6) Lisinopril [Zestril TAB] 20 mg PO QDAY #30 tablet
[2018-12-23] MEDS ORDERED: APRESOLINE PO SCH (13:27)
--- NOTE | 2018-12-23 13:28 | Progress Note ---
Assessment and Plan Volume optimization per nephrology. Optimize anti-hypertensive regimen - increase hydralazine. Troponin elevation appears c/w NSTEMI type II, ECG with no acute ischemic changes, pt denies chest pain. F/u echo. The patient has been seen in conjunction with Dr. Grace who agrees with the assessment and plan of care. - Patient Problems (1) Acute heart failure with preserved ejection fraction Current Visit: Yes Status: Acute (2) Volume overload Current Visit: Yes Status: Acute (3) Hypertensive emergency Current Visit: Yes Status: Acute (4) ESRD (end stage renal disease) Current Visit: Yes Status: Chronic (5) Pancreatic cancer Current Visit: Yes Status: Chronic (6) NSTEMI (non-ST elevated myocardial infarction) Current Visit: Yes Status: Acute (7) Diabetes mellitus with hyperglycemia Current Visit: Yes Status: Acute Subjective Date of service: 12/23/18 Principal diagnosis: anesthesia disease with fluid overload Interval history: pt resting in bed, states he is feeling better today. Objective Last Vital Signs Temp 98.1 F 12/23/18 07:31 Pulse 77 12/23/18 07:00 Resp 18 12/23/18 07:31 BP 167/71 12/23/18 07:31 Pulse Ox 96 12/23/18 04:52 - Physical Examination General: No Apparent Distress HEENT: Positive: PERRL, Normocephaly, Mucus Membranes Moist Neck: Positive: neck supple, trachea midline Cardiac: Positive: Reg Rate and Rhythm, S1/S2 Lungs: Positive: Decreased Breath Sounds Neuro: Positive: Grossly Intact Abdomen: Positive: Soft. Negative: Tender Skin: Negative: Rash, Wound Musculoskeletal: No Pain Extremities: Absent: edema - Labs and Meds Cardiac Enzymes 12/22/18 Range/Units 15:45 CK-MB (CK-2) 1.2 (0.0-4.0) ng/mL Comprehensive Metabolic Panel 12/22/18 Range/Units 15:45 Sodium 134 L (137-145) mmol/L Potassium 4.2 (3.6-5.0) mmol/L Chloride 94.2 L (98-107) mmol/L Carbon Dioxide 28 (22-30) mmol/L BUN 29 H (9-20) mg/dL Creatinine 5.1 H (0.8-1.5) mg/dL Glucose 131 H (75-100) mg/dL Calcium 8.9 (8.4-10.2) mg/dL - Imaging and Cardiology EKG: report reviewed, image reviewed Echo: report reviewed ( 04/2017 showed moderate LVH, EF 55-60%, grade II diastolic dysfunction, LA dilated, mild TR. ) - EKG Sinus rhythms and dysrhythmias: sinus rhythm
--- NOTE | 2018-12-23 14:24 | Progress Note ---
Assessment and Plan Volume overload Acute dyspnea (due to above) ESRD on HD (TTS) Pancreatic Ca (chemotherapy) Accelerated hypertension Hyperlipidemia Hyponatremia Anemia (multifactorial (chemotherapy, CKD) Acute hypoxemia with alveolar edema/volume overload Acute dyspnea (due to above) ESRD on HD (TTS) Pancreatic Ca on chemotherapy Accelerated hypertension Hyperlipidemia Hyponatremia Anemia (multifactorial (chemotherapy, CKD, chronic disease, nutritional) Tobacco use disorder/Nicotine dependence NSTEMI- type 2 ischemia Elevated BNP Moderate protein calorie malnutrition - Supplemental oxygen to keep O2 sats>90% - Supportive HD/UF, will get a second session today - VTE prophylaxis - Accuchecks with glycemic control - Follow up CXR in the next 48 hours - Serial troponins - Smoking cessation done at the bedside, he is trying to quit. States he no longer buys packets of cigarettes, only singles - Blood pressure control, resume chronic home medications - Nutritional support, chronically ill looking with moderate protein calorie malnutrition - PT/OT, increase activity - Monitor electrolyte profile - Will need conversations between Renal and Oncology re volume management while he gets his chemotherapy. ... re-evaluate in am & prn Subjective Date of service: 12/23/18 Principal diagnosis: Acute Pulmonary Edema; Acute dyspnea; ESRD on HD; Pancreatic CA; HTN Interval history: Patient is seen today for: Acute Pulmonary Edema; Acute dyspnea; ESRD on HD (TTS); Pancreatic Ca (chemotherapy); Accelerated hypertension; Hyperlipidemia; Hyponatremia; Anemia (multifactorial re:chemotherapy, CKD) Seen and examined at bedside; 24hour events reviewed; nursing and respiratory care staff consulted; no adverse overnight events reported to me; resting peacefully in bed; no emesis or overt aspiration; no acute chest pains; no hemoptysis; overall improved Objective Vital Signs - 12hr 12/23/18 12/23/18 12/23/18 04:52 07:00 07:31 Temperature 98.2 F 98.1 F Pulse Rate 82 77 Respiratory 20 18 Rate Blood Pressure 155/65 167/71 O2 Sat by Pulse 96 Oximetry Constitutional: other (elderly looking thin male with mildly increased resp effort at rest) Eyes: non-icteric ENT: oropharynx moist Neck: supple, no lymphadenopathy, no JVD Effort: mildly labored Ascultation: Bilateral: rhonchi Percussion: Bilateral: not dull Cardiovascular: regular rate and rhythm Gastrointestinal: normoactive bowel sounds, soft, non-tender, non-distended Integumentary: rash Extremities: no cyanosis, pulses normal, no ischemia or petechiae Neurologic: normal mental status, non-focal exam, pupils equal and round, CN II- XII normal Psychiatric: mood appropriate, affect normal CBC and BMP: 12/21/18 03:19 12/22/18 15:45 ABG, PT/INR, D-dimer: PT/INR, D-dimer PT 13.8 Sec. (12.2-14.9) 12/21/18 03:19 INR 1.00 (0.87-1.13) 12/21/18 03:19 Abnormal lab findings: Abnormal Labs 12/21/18 12/21/18 12/21/18 03:19 03:19 03:19 RBC 2.99 L Hgb 10.5 L Hct 31.1 L MCV 104 H MCH 35 H RDW 21.7 H Sodium 132 L Chloride 87.1 L BUN 31 H Creatinine 4.7 H Glucose 501 H* POC Glucose Hemoglobin A1c Troponin T 0.129 H* NT-Pro-B Natriuret Pep 92558 H Triglycerides 595 H HDL Cholesterol 27 L Hepatitis C Antibody 12/21/18 12/21/18 12/21/18 08:41 09:44 10:55 RBC Hgb Hct MCV MCH RDW Sodium Chloride BUN Creatinine Glucose POC Glucose > 500 H 482 H 426 H Hemoglobin A1c Troponin T NT-Pro-B Natriuret Pep Triglycerides HDL Cholesterol Hepatitis C Antibody 12/21/18 12/21/18 12/21/18 12:21 13:10 13:10 RBC Hgb Hct MCV MCH RDW Sodium 133 L Chloride 87.8 L BUN 36 H Creatinine 5.1 H Glucose 528 H* POC Glucose 390 H Hemoglobin A1c 7.9 H Troponin T 0.153 H* NT-Pro-B Natriuret Pep Triglycerides HDL Cholesterol Hepatitis C Antibody 12/21/18 12/21/18 12/21/18 13:38 15:26 16:15 RBC Hgb Hct MCV MCH RDW Sodium 136 L Chloride 92.6 L BUN 38 H Creatinine 5.7 H Glucose 141 H POC Glucose 333 H 200 H Hemoglobin A1c Troponin T NT-Pro-B Natriuret Pep Triglycerides HDL Cholesterol Hepatitis C Antibody 12/21/18 12/21/18 12/21/18 16:15 21:19 23:45 RBC Hgb Hct MCV MCH RDW Sodium 135 L Chloride 93.4 L BUN 23 H Creatinine 4.0 H Glucose 299 H POC Glucose 274 H Hemoglobin A1c Troponin T NT-Pro-B Natriuret Pep Triglycerides HDL Cholesterol Hepatitis C Antibody Reactive A 12/22/18 12/22/18 12/22/18 04:34 08:37 11:15 RBC Hgb Hct MCV MCH RDW Sodium 134 L Chloride 92.4 L BUN 25 H Creatinine 4.4 H Glucose 276 H POC Glucose 243 H 209 H Hemoglobin A1c Troponin T NT-Pro-B Natriuret Pep Triglycerides HDL Cholesterol Hepatitis C Antibody 12/22/18 12/22/18 12/22/18 15:45 15:45 16:27 RBC Hgb Hct MCV MCH RDW Sodium 134 L Chloride 94.2 L BUN 29 H Creatinine 5.1 H Glucose 131 H POC Glucose 205 H Hemoglobin A1c Troponin T 0.121 H* D NT-Pro-B Natriuret Pep Triglycerides HDL Cholesterol Hepatitis C Antibody 12/22/18 12/23/18 12/23/18 22:33 07:53 12:09 RBC Hgb Hct MCV MCH RDW Sodium Chloride BUN Creatinine Glucose POC Glucose 121 H 166 H 173 H Hemoglobin A1c Troponin T NT-Pro-B Natriuret Pep Triglycerides HDL Cholesterol Hepatitis C Antibody Chest x-ray: report reviewed Allied health notes reviewed: nursing
[2018-12-23] MEDS ORDERED: NACL 0.9 (PRIMING MACHINE ONLY DIALYSIS) MC ONE (17:04)
[2018-12-23] MEDS: PERCOCET 5/325 PO PRN (18:15)
[2018-12-23] MEDS: ZESTRIL PO SCH (18:16)
[2018-12-23] MEDS: Renal Caps PO SCH (18:16)
[2018-12-23] MEDS: PEPCID PO SCH (18:16)
[2018-12-23] MEDS: HALFPRIN EC PO SCH (18:16)
[2018-12-23] MEDS: NORVASC PO SCH ×2 (18:17→18:19)
[2018-12-23] MEDS: COREG PO SCH ×2 (18:19→21:09)
[2018-12-23] MEDS: APRESOLINE PO SCH ×3 (18:34→21:09)
[2018-12-24] MEDS: PERCOCET 5/325 PO PRN ×2 (01:03→15:26)
[2018-12-24] MEDS ORDERED: NACL 0.9% 100 ML IV PRN (06:18)
--- NOTE | 2018-12-24 06:35 | Progress Note ---
Assessment and Plan - Patient Problems (1) Acute respiratory failure with hypoxia Current Visit: Yes Status: Acute Plan to address problem: Secondary to fluid administration with chemotherapy. Recommend to decrease fluids he gets with chemotherapy to 500 mL instead of >1 liter. resume HD on TTS schedule, UF target of 2-3L as tolerated today. (2) ESRD (end stage renal disease) Current Visit: Yes Status: Chronic Plan to address problem: cont HD on TTS schedule (3) Hyponatremia Current Visit: Yes Status: Acute Plan to address problem: Hypervolemic hyponatremia. Follow-up sodium following dialysis (4) Hypertensive urgency Current Visit: Yes Status: Acute Plan to address problem: Suspect volume related. Blood pressure has improved. Follow blood pressure on adjusted medications (5) Diabetes mellitus with hyperglycemia Current Visit: Yes Status: Acute Plan to address problem: Blood Sugar management by primary attending (6) Pancreatic cancer Current Visit: Yes Status: Chronic Plan to address problem: Recently diagnosed. Patient getting chemotherapy. Discussed with oncologist about decreasing fluid administration with chemotherapy sessions Subjective Date of service: 12/24/18 Principal diagnosis: end-stage renal disease with fluid overload Interval history: Pt awake, alert, in no acute respiratory distress. Objective - Vital Signs Vital signs: Vital Signs - 12hr 12/23/18 12/23/18 12/23/18 19:00 20:33 20:35 Temperature 98.6 F Pulse Rate 81 88 Respiratory 18 Rate Blood Pressure 182/72 O2 Sat by Pulse 99 Oximetry 12/23/18 12/24/18 12/24/18 21:59 00:05 00:06 Temperature 98.4 F Pulse Rate 76 Respiratory 18 18 Rate Blood Pressure 122/50 O2 Sat by Pulse 98 Oximetry 12/24/18 12/24/18 12/24/18 01:03 04:50 04:51 Temperature 979 F H Pulse Rate 75 Respiratory 20 18 Rate Blood Pressure 156/66 O2 Sat by Pulse 99 Oximetry - General Appearance General appearance: well-developed, well-nourished, appears stated age EENT: ATNC, PERRL, mucous membranes moist Neck: no JVD Respiratory: Present: Clear to Ascultation Cardiology: regular, S1S2 Gastrointestinal: normoactive bowel sounds Integumentary: no rash, other (no edema ) Neurologic: no focal deficit, alert and oriented x3, strength 5/5, CN 3-12 intact Psychiatric: mood/affect appropriate, cooperative - Lab 12/21/18 03:19 12/22/18 15:45 Most recent lab results Calcium 8.9 mg/dL (8.4-10.2) 12/22/18 15:45 Phosphorus 2.70 mg/dL (2.5-4.5) 12/21/18 13:10 Magnesium 1.80 mg/dL (1.7-2.3) 12/21/18 13:10 Medications & Allergies - Medications Allergies/Adverse Reactions: Allergies morphine Allergy (Verified 11/29/18 04:52) Swelling Home Medications: Home Medications Medication Instructions Recorded Confirmed Last Taken Type AtorvaSTATin [Lipitor] 40 mg PO QHS 04/27/17 12/21/18 12/20/18 History Vit B Comp No.3/Folic/C/Biotin 1 each PO DAILY 04/27/17 12/21/18 12/20/18 History [Carisa-Sonya Rx Tablet] traMADol [Ultram 50 MG tab] 50 mg PO Q6H PRN 04/27/17 12/21/18 12/20/18 History Amlodipine Besylate [Norvasc] 10 mg PO QDAY 08/04/18 12/21/18 12/20/18 History Aspirin [Adult Low Dose Aspirin EC] 81 mg PO DAILY 08/04/18 12/21/18 12/20/18 History Carvedilol 25 mg PO BID 08/04/18 12/21/18 12/20/18 History Insulin Aspart [NovoLOG 100 10 units SUB-Q PRN 08/04/18 12/21/18 12/20/18 History UNITS/ML VIAL] Insulin Detemir [Levemir Flextouch] 30 units SUB-Q QHS 08/04/18 12/21/18 12/20/18 History Ranitidine HCl [Zantac] 150 mg PO QDAY 08/04/18 12/21/18 12/20/18 History hydrALAZINE [Apresoline TAB] 25 mg PO TID 08/04/18 12/21/18 12/20/18 History oxyCODONE /ACETAMINOPHEN [Percocet 2 tab PO Q6H PRN #30 tablet 12/23/18 Unknown Rx 5/325 mg] Active Medications: Generic Name Dose Route Start Last Admin Trade Name Freq PRN Reason Stop Dose Admin Amlodipine Besylate 10 mg 12/23/18 11:00 12/23/18 18:19 Norvasc PO Not Given QDAY [facility] Aspirin 81 mg 12/22/18 10:00 12/23/18 18:16 Halfprin Ec PO 81 mg DAILY KIKI Administration Atorvastatin Calcium 40 mg 12/21/18 22:00 12/23/18 21:09 Lipitor PO 40 mg QHS KIKI Administration Carvedilol 25 mg 12/21/18 22:00 12/23/18 21:09 Coreg PO 25 mg BID KIKI Administration Dextrose 0 ml 12/21/18 11:48 D50w (25gm) Syringe IV PRN PRN Hypoglycemia Famotidine 20 mg 12/21/18 14:00 12/23/18 18:16 Pepcid PO 20 mg DAILY KIKI Administration Heparin Sodium (Porcine) 1,000 unit 12/21/18 15:22 12/23/18 18:17 Heparin 10,000 Units/10 Ml IV 1,000 unit PRE[facility]ON PRN Administration hemodialysis Hydralazine HCl 100 mg 12/23/18 14:00 12/23/18 21:09 Apresoline PO 100 mg TID [facility] Administration Sodium Chloride 100 mls @ 999 mls/hr 12/21/18 15:22 Nacl 0.9% IV PRESTON PRN Hypotension Insulin Glargine 30 units 12/21/18 22:00 12/23/18 21:10 Lantus SUB-Q 30 units QHS [facility] Administration Insulin Human Lispro 5 unit 12/22/18 07:30 12/23/18 18:34 Humalog SUB-Q Not Given [facility] Insulin Human Lispro 0 unit 12/22/18 07:30 12/23/18 21:10 Humalog SUB-Q 8 unit ACHS [facility] Administration Protocol Lisinopril 20 mg 12/22/18 14:30 12/23/18 18:16 Zestril PO 20 mg QDAY [facility] Administration Multivit/Ca Carb/B Cmplx/FA/Prenat 1 cap 12/22/18 10:00 12/23/18 18:16 Renal Caps PO 1 cap QDAY [facility] Administration Nitroglycerin 0.4 mg 12/21/18 07:42 Nitrostat SL .Q5MIN PRN Chest Pain Oxycodone/Acetaminophen 2 tab 12/21/18 20:08 12/24/18 01:03 Percocet 5/325 PO 2 tab Q6H PRN Administration Pain, Moderate (4-6)
--- NOTE | 2018-12-24 07:14 | Progress Note ---
Assessment and Plan Acute hyoxia with alveolar edema/volume overload Acute dyspnea (due to above) ESRD on HD (TTS) Pancreatic Ca on chemotherapy Accelerated hypertension Hyperlipidemia Hyponatremia Anemia (multifactorial (chemotherapy, CKD, chronic disease, nutritional) Tobacco use disorder/Nicotine dependence NSTEMI- type 2 ischemia Elevated BNP Moderate protein calorie malnutrition -Supplemental oxygen to keep O2 sats>90% -Supportive HD/UF, will get a second session today -VTE prophylaxis -Accuchecks with glycemic control -Follow up CXR in the next 48 hours -Serial troponins -Smoking cessation done at the bedside, he is trying to quit. States he no longer buys packets of cigarettes, only singles -Blood pressure control, resume chronic home medications -Nutritional support, chronically ill looking with moderate protein calorie malnutrition -PT/OT, increase activity -Monitor electrolyte profile -Will need conversations between Renal and Oncology re volume management while he gets his chemotherapy. PROGNOSIS: GUARDED CONDITION: CRITICAL CODE STATUS: FULL Thank you for this consult Will follow Subjective Date of service: 12/24/18 Principal diagnosis: end-stage renal disease with fluid overload Interval history: Patient is seen today for: Seen and examined at bedside; 24hour events reviewed; nursing and respiratory care staff consulted; no adverse overnight events reported to me; Objective Vital Signs - 12hr 12/23/18 12/23/18 12/23/18 20:33 20:35 21:59 Temperature 98.6 F Pulse Rate 88 Respiratory 18 18 Rate Blood Pressure 182/72 O2 Sat by Pulse 99 Oximetry 12/24/18 12/24/18 12/24/18 00:05 00:06 01:03 Temperature 98.4 F Pulse Rate 76 Respiratory 18 20 Rate Blood Pressure 122/50 O2 Sat by Pulse 98 Oximetry 12/24/18 12/24/18 04:50 04:51 Temperature 979 F H Pulse Rate 75 Respiratory 18 Rate Blood Pressure 156/66 O2 Sat by Pulse 99 Oximetry Constitutional: no acute distress, alert Eyes: non-icteric ENT: oropharynx dry Neck: supple, no lymphadenopathy, no JVD Effort: mildly labored Ascultation: Bilateral: diminished breath sounds, rales (at the bases bilaterally) Cardiovascular: regular rate and rhythm, other (S1,S2, no murmrus) Gastrointestinal: normoactive bowel sounds, soft, non-tender Integumentary: normal Extremities: no cyanosis, no edema, pulses normal, no ischemia or petechiae Neurologic: normal mental status, non-focal exam, pupils equal and round, motor strength normal and Psychiatric: mood appropriate, affect normal CBC and BMP: 12/21/18 03:19 12/22/18 15:45 ABG, PT/INR, D-dimer: PT/INR, D-dimer PT 13.8 Sec. (12.2-14.9) 12/21/18 03:19 INR 1.00 (0.87-1.13) 12/21/18 03:19 Abnormal lab findings: Abnormal Labs 12/21/18 12/21/18 12/21/18 03:19 03:19 03:19 RBC 2.99 L Hgb 10.5 L Hct 31.1 L MCV 104 H MCH 35 H RDW 21.7 H Sodium 132 L Chloride 87.1 L BUN 31 H Creatinine 4.7 H Glucose 501 H* POC Glucose Hemoglobin A1c Troponin T 0.129 H* NT-Pro-B Natriuret Pep 17908 H Triglycerides 595 H HDL Cholesterol 27 L Hepatitis C Antibody 12/21/18 12/21/18 12/21/18 08:41 09:44 10:55 RBC Hgb Hct MCV MCH RDW Sodium Chloride BUN Creatinine Glucose POC Glucose > 500 H 482 H 426 H Hemoglobin A1c Troponin T NT-Pro-B Natriuret Pep Triglycerides HDL Cholesterol Hepatitis C Antibody 12/21/18 12/21/18 12/21/18 12:21 13:10 13:10 RBC Hgb Hct MCV MCH RDW Sodium 133 L Chloride 87.8 L BUN 36 H Creatinine 5.1 H Glucose 528 H* POC Glucose 390 H Hemoglobin A1c 7.9 H Troponin T 0.153 H* NT-Pro-B Natriuret Pep Triglycerides HDL Cholesterol Hepatitis C Antibody 12/21/18 12/21/18 12/21/18 13:38 15:26 16:15 RBC Hgb Hct MCV MCH RDW Sodium 136 L Chloride 92.6 L BUN 38 H Creatinine 5.7 H Glucose 141 H POC Glucose 333 H 200 H Hemoglobin A1c Troponin T NT-Pro-B Natriuret Pep Triglycerides HDL Cholesterol Hepatitis C Antibody 12/21/18 12/21/18 12/21/18 16:15 21:19 23:45 RBC Hgb Hct MCV MCH RDW Sodium 135 L Chloride 93.4 L BUN 23 H Creatinine 4.0 H Glucose 299 H POC Glucose 274 H Hemoglobin A1c Troponin T NT-Pro-B Natriuret Pep Triglycerides HDL Cholesterol Hepatitis C Antibody Reactive A 12/22/18 12/22/18 12/22/18 04:34 08:37 11:15 RBC Hgb Hct MCV MCH RDW Sodium 134 L Chloride 92.4 L BUN 25 H Creatinine 4.4 H Glucose 276 H POC Glucose 243 H 209 H Hemoglobin A1c Troponin T NT-Pro-B Natriuret Pep Triglycerides HDL Cholesterol Hepatitis C Antibody 12/22/18 12/22/18 12/22/18 15:45 15:45 16:27 RBC Hgb Hct MCV MCH RDW Sodium 134 L Chloride 94.2 L BUN 29 H Creatinine 5.1 H Glucose 131 H POC Glucose 205 H Hemoglobin A1c Troponin T 0.121 H* D NT-Pro-B Natriuret Pep Triglycerides HDL Cholesterol Hepatitis C Antibody 12/22/18 12/23/18 12/23/18 22:33 07:53 12:09 RBC Hgb Hct MCV MCH RDW Sodium Chloride BUN Creatinine Glucose POC Glucose 121 H 166 H 173 H Hemoglobin A1c Troponin T NT-Pro-B Natriuret Pep Triglycerides HDL Cholesterol Hepatitis C Antibody 12/23/18 21:04 RBC Hgb Hct MCV MCH RDW Sodium Chloride BUN Creatinine Glucose POC Glucose 357 H Hemoglobin A1c Troponin T NT-Pro-B Natriuret Pep Triglycerides HDL Cholesterol Hepatitis C Antibody
[2018-12-24] MEDS: APRESOLINE PO SCH ×2 (07:30→15:20)
[2018-12-24] MEDS: HumaLOG SUB-Q SCH ×4 (07:30→15:21)
--- NOTE | 2018-12-24 09:12 | Progress Note ---
Assessment and Plan will change to po lopressor 100mg bid and monitor and if stable discharge and followup in office next week, - Patient Problems (1) Acute heart failure with preserved ejection fraction Current Visit: Yes Status: Acute (2) Diabetes mellitus with hyperglycemia Current Visit: Yes Status: Acute (3) Hypertensive emergency Current Visit: Yes Status: Acute (4) Hypertensive urgency Current Visit: Yes Status: Acute (5) NSTEMI (non-ST elevated myocardial infarction) Current Visit: Yes Status: Acute Plan to address problem: type 2 (6) Respiratory failure with hypoxia Current Visit: Yes Status: Acute (7) ESRD (end stage renal disease) Current Visit: Yes Status: Chronic Subjective Date of service: 12/24/18 Principal diagnosis: end-stage renal disease with fluid overload Interval history: mild palpatins or chest pain Objective Vital Signs Temp Pulse Resp BP Pulse Ox 12/24/18 04:51 979 F H 12/24/18 04:50 75 18 156/66 99 12/24/18 01:03 20 12/24/18 00:06 98.4 F 12/24/18 00:05 76 18 122/50 98 12/23/18 21:59 18 12/23/18 20:35 98.6 F 12/23/18 20:33 88 18 182/72 99 12/23/18 19:00 81 12/23/18 18:03 98.2 F 68 18 179/82 12/23/18 18:01 82 182/79 12/23/18 17:00 80 196/95 12/23/18 16:45 84 204/93 12/23/18 16:30 85 182/92 12/23/18 16:15 81 184/88 12/23/18 16:00 82 201/84 12/23/18 15:45 63 195/89 12/23/18 15:30 75 180/83 12/23/18 15:15 76 191/92 12/23/18 15:00 76 191/92 12/23/18 14:45 80 197/86 12/23/18 14:30 77 197/95 12/23/18 14:15 86 219/100 12/23/18 14:00 98.2 F 88 18 225/107 12/23/18 11:58 97.4 F L 18 186/96 - Physical Examination General: No Apparent Distress HEENT: Positive: PERRL, Normocephaly, Mucus Membranes Moist Neck: Positive: neck supple, trachea midline Cardiac: Positive: Reg Rate and Rhythm Neuro: Positive: Grossly Intact Abdomen: Positive: Soft. Negative: Tender Skin: Negative: Rash, Wound Musculoskeletal: No Pain Extremities: Absent: edema - Imaging and Cardiology EKG: report reviewed, image reviewed Echo: report reviewed ( 04/2017 showed moderate LVH, EF 55-60%, grade II diastolic dysfunction, LA dilated, mild TR. ) - Telemetry EKG Rhythm: Sinus Rhythm (brief runs of svt at 150 less than 20 beats) - EKG Sinus rhythms and dysrhythmias: sinus rhythm
[2018-12-24] MEDS ORDERED: NACL 0.9 (PRIMING MACHINE ONLY DIALYSIS) MC ONE (11:00)
[2018-12-24] MEDS ORDERED: LOPRESSOR PO SCH (11:00)
--- NOTE | 2018-12-24 11:49 | Progress Note ---
Assessment and Plan Assessment and plan: Patient is a 63-year-old male with PMHx ESRD on HD (TTS), pancreatic cancer (dx on October 2018, currently on chemotherapy), hypertension who presents to the ER with complaints of SOB. Patient states that he woke up with severe shortness of breath, he was unable to catch his breath, his son drove him to the ER for evaluation. Patient states that he started chemotherapy 2 weeks ago on Wednesday, he received a lot of fluid in chemotherapy, after undergoing HD that day. Patient states that he can hear his lung crackling due to fluid overload, he reports sudden cough productive of white sputum, he denies chest pain, denies lower extremity pain or swelling, denies fever, denies chills. Patient states h e feels that is getting fluid overloaded in chemotherapy and not enough HD time which cause his symptoms. On arrival to the ER, patient's O2 sat was 88%, his O2 sat continued to decline he was put in a BiPAP for better ventilation, his BNP is pending, patient is admitted for further management of his presenting symptoms. Past History Past Medical History: anemia, cancer, COPD, ESRD 1. Volume overload /pulmonary edema 2. Acute dyspnea (due to above) 3. ESRD on HD (TTS) 4. Pancreatic Ca (chemotherapy) 5. Accelerated hypertension 6. Hyperlipidemia 7. Hyponatremia 8. Anemia (multifactorial (chemotherapy, CKD) Hyperglycemia, Type 2 DM Plan: Patient is admitted for fluid overload, echo shows preserved EF Fluid restriction Consult nephrology for HD management, cont UF for fluid mgt optimize bp meds insulin for elevated glucose Resume home meds History Interval history: complaining of shortness of breath Review of systems Constitutional: No fevers, no malaise, no joint pains CVS: No chest pain GI: No abdominal pain, no diarrhea, no vomiting, no constipation Respiratory: no wheezing, no coughing Hospitalist Physical - Physical exam Narrative exam: General.: Appears well, no distress, nontoxic HEENT: Moist mucous membranes, extraocular muscles intact, no lymphadenopathy Neck: supple Cardiac: S1-S2 heard Lungs: Decreased air entry, crackles in bases Abdomen: soft , nontender, nondistended, bowel sounds positive Extremities: no edema clubbing or cyanosis Skin: no rash or lesions Neurologic: no gross focal deficits Psych: calm, and cooperative - Constitutional Vitals: Temp Pulse Resp BP Pulse Ox 979 F H 75 18 156/66 99 12/24/18 04:51 12/24/18 04:50 12/24/18 04:50 12/24/18 04:50 12/24/18 04:50 General appearance: Present: no acute distress Results - Labs CBC & Chem 7: 12/21/18 03:19 12/22/18 15:45 Labs: Laboratory Last Values WBC 7.4 K/mm3 (4.5-11.0) 12/21/18 03:19 RBC 2.99 M/mm3 (3.65-5.03) L 12/21/18 03:19 Hgb 10.5 gm/dl (11.8-15.2) L 12/21/18 03:19 Hct 31.1 % (35.5-45.6) L 12/21/18 03:19 MCV 104 fl (84-94) H 12/21/18 03:19 MCH 35 pg (28-32) H 12/21/18 03:19 MCHC 34 % (32-34) 12/21/18 03:19 RDW 21.7 % (13.2-15.2) H 12/21/18 03:19 Plt Count 179 K/mm3 (140-440) 12/21/18 03:19 Lymph % (Auto) 27.6 % (13.4-35.0) 12/21/18 03:19 [place] % (Auto) 4.5 % (0.0-7.3) 12/21/18 03:19 Eos % (Auto) 1.4 % (0.0-4.3) 12/21/18 03:19 Baso % (Auto) 1.0 % (0.0-1.8) 12/21/18 03:19 Lymph # 2.0 K/mm3 (1.2-5.4) 12/21/18 03:19 [place] # 0.3 K/mm3 (0.0-0.8) 12/21/18 03:19 Eos # 0.1 K/mm3 (0.0-0.4) 12/21/18 03:19 Baso # 0.1 K/mm3 (0.0-0.1) 12/21/18 03:19 Add Manual Diff Complete 12/21/18 03:19 Seg Neutrophils % 65.5 % (40.0-70.0) 12/21/18 03:19 Seg Neutrophils # 4.8 K/mm3 (1.8-7.7) 12/21/18 03:19 PT 13.8 Sec. (12.2-14.9) 12/21/18 03:19 INR 1.00 (0.87-1.13) 12/21/18 03:19 APTT 27.9 Sec. (24.2-36.6) 12/21/18 03:19 Sodium 134 mmol/L (137-145) L 12/22/18 15:45 Potassium 4.2 mmol/L (3.6-5.0) 12/22/18 15:45 Chloride 94.2 mmol/L (98-107) L 12/22/18 15:45 Carbon Dioxide 28 mmol/L (22-30) 12/22/18 15:45 16 mmol/L 12/22/18 15:45 BUN 29 mg/dL (9-20) H 12/22/18 15:45 5.1 mg/dL (0.8-1.5) H 12/22/18 15:45 Estimated GFR 14 ml/min 12/22/18 15:45 6 % 12/22/18 15:45 Glucose 131 mg/dL (75-100) H 12/22/18 15:45 POC Glucose 357 (70-105) H 12/23/18 21:04 7.9 % (4-6) H 12/21/18 13:10 Calcium 8.9 mg/dL (8.4-10.2) 12/22/18 15:45 Phosphorus 2.70 mg/dL (2.5-4.5) 12/21/18 13:10 Magnesium 1.80 mg/dL (1.7-2.3) 12/21/18 13:10 57 units/L (55-170) 12/22/18 15:45 CK-MB (CK-2) 1.2 ng/mL (0.0-4.0) 12/22/18 15:45 CK-MB (CK-2) Rel Index 2.1 (0-4) 12/22/18 15:45 0.121 ng/mL (0.00-0.029) H* D 12/22/18 15:45 NT-Pro-B Natriuret Pep 76879 pg/mL (0-900) H 12/21/18 03:19 Triglycerides 595 mg/dL (2-149) H 12/21/18 03:19 Cholesterol 169 mg/dL (50-199) 12/21/18 03:19 TNR 12/21/18 03:19 27 mg/dL (40-59) L 12/21/18 03:19 6.25 % 12/21/18 03:19 Hepatitis A IgM Ab Non-reactive (NonReactive) 12/21/18 16:15 Hep Bs Antigen Non-reactive (Negative) 12/21/18 16:15 Hep B Core IgM Ab Non-reactive (NonReactive) 12/21/18 16:15 Reactive (NonReactive) A 12/21/18 16:15 Active Medications - Current Medications Current Medications: Generic Name Dose Route Start Last Admin Trade Name Freq PRN Reason Stop Dose Admin Amlodipine Besylate 10 mg 12/23/18 11:00 12/23/18 18:19 Norvasc PO Not Given QDAY KIKI Aspirin 81 mg 12/22/18 10:00 12/23/18 18:16 Halfprin Ec PO 81 mg DAILY KIKI Administration Atorvastatin Calcium 40 mg 12/21/18 22:00 12/23/18 21:09 Lipitor PO 40 mg QHS KIKI Administration Dextrose 0 ml 12/21/18 11:48 D50w (25gm) Syringe IV PRN PRN Hypoglycemia Famotidine 20 mg 12/21/18 14:00 12/23/18 18:16 Pepcid PO 20 mg DAILY KIKI Administration Heparin Sodium (Porcine) 1,000 unit 12/21/18 15:22 12/23/18 18:17 Heparin 10,000 Units/10 Ml IV 1,000 unit PRESTON PRN Administration hemodialysis Hydralazine HCl 100 mg 12/23/18 14:00 12/24/18 07:30 Apresoline PO Not Given TID KIKI Sodium Chloride 100 mls @ 999 mls/hr 12/21/18 15:22 Nacl 0.9% IV PRESTON PRN Hypotension Insulin Glargine 30 units 12/21/18 22:00 12/23/18 21:10 Lantus SUB-Q 30 units QHS KIKI Administration Insulin Human Lispro 5 unit 12/22/18 07:30 12/24/18 07:30 Humalog SUB-Q Not Given AC KIKI Insulin Human Lispro 0 unit 12/22/18 07:30 12/24/18 07:30 Humalog SUB-Q Not Given ACHS [facility] Protocol Lisinopril 20 mg 12/22/18 14:30 12/23/18 18:16 Zestril PO 20 mg QDAY KIKI Administration Metoprolol Tartrate 100 mg 12/24/18 11:00 Lopressor PO BID KIKI Multivit/Ca Carb/B Cmplx/FA/Prenat 1 cap 12/22/18 10:00 12/23/18 18:16 Renal Caps PO 1 cap QDAY KIKI Administration Nitroglycerin 0.4 mg 12/21/18 07:42 Nitrostat SL .Q5MIN PRN Chest Pain Oxycodone/Acetaminophen 2 tab 12/21/18 20:08 12/24/18 01:03 Percocet 5/325 PO 2 tab Q6H PRN Administration Pain, Moderate (4-6) Nutrition/Malnutrition Assess - Dietary Evaluation Nutrition/Malnutrition Findings: Nutrition Notes Start: 12/22/18 15:31 Freq: Status: Active Protocol: Document 12/22/18 15:31 RM (Rec: 12/22/18 15:38 RM [id number]) Nutrition Notes Need for Assessment generated from: MD Order Initial or Follow up Assessment Current Diagnosis COPD,Hypertension, Hyperlipidemia Other Pertinent Diagnosis ESRD on HD (T/T/S), panreatic cancer,Volume overload Current Diet Consisent CHO, Renal Labs/Tests Reviewed Pertinent Medications Reviewed Height 5 ft 9 in Weight 59.874 kg Dante Body Weight (kg) 72.72 BMI 19.5 Subjective/Other Information Consulted for nutrition recommendations and DM diet education. Pt asleep at time of visit. Burn Absent Trauma Absent #1 Nutrition Diagnosis Increased nutrient needs ( specify in comment below) Comments: protein Etiology ESRD As Evidenced by Signs and Symptoms on HD Is patient on ventilator? No Is Patient Ambulatory and/or Out of Bed Yes REE-([facility]-ambulatory/OOB) [ [id number] [id number]] Calculation Used for Recommendations [facility] Additional Notes Protein Needs: 72-78g (1.2-1. 3g/kg) Fluid Needs: 1 ml/kcal Nutrition Intervention Change Diet Order: Continue current Add Supplement/Snack (indicate name/kcal Nepro 1 daily /protein ) Provides kCal: 425 Provides Protein (gm) 19 Goal #1 Meet at least 75% of calorie and protein needs via PO and ONS intakes Anticipated Discharge Needs: Renal diet Follow-Up By: 12/26/18 Additional Comments Follow for PO intakes, ONS intakes, and DM diet education
[2018-12-24 15:03] VITALS: BP 158/82
[2018-12-24] MEDS: NORVASC PO SCH (15:20)
[2018-12-24] MEDS: HALFPRIN EC PO SCH (15:20)
[2018-12-24] MEDS: PEPCID PO SCH (15:20)
[2018-12-24] MEDS: Renal Caps PO SCH (15:20)
[2018-12-24] MEDS: ZESTRIL PO SCH (15:20)
== END 2018-12-24 16:24 | disposition home or self-care (01) | DRG 280 ==
LOC: ED 02:37 → 4A 05:22 → CC1 12:16 → 4A 12-22 11:16
PROVIDERS: ADMIT Internal Medicine; ATTEND Internal Medicine
PROC: 5A09357 Assistance with Respiratory Ventilation, Less than 24 Consecutive Hours, Continuous Positive Airway Pressure (ICD-10-PCS; principal; 2018-12-21)
PROC: 5A1D70Z Performance of Urinary Filtration, Intermittent, Less than 6 Hours Per Day (ICD-10-PCS; 2018-12-21)
PROC: 5A1D70Z Performance of Urinary Filtration, Intermittent, Less than 6 Hours Per Day (ICD-10-PCS; 2018-12-23)
PROC: 5A1D70Z Performance of Urinary Filtration, Intermittent, Less than 6 Hours Per Day (ICD-10-PCS; 2018-12-24)
DX: I21.A1 Myocardial infarction type 2 (principal); J96.01 Acute respiratory failure with hypoxia; N18.6 End stage renal disease; I50.31 Acute diastolic (congestive) heart failure; I13.2 Hypertensive heart and chronic kidney disease with heart failure and with stage 5 chronic kidney disease, or end stage renal disease; I16.1 Hypertensive emergency; C25.9 Malignant neoplasm of pancreas, unspecified; E87.1 Hypo-osmolality and hyponatremia; E44.0 Moderate protein-calorie malnutrition; Z68.1 Body mass index [BMI] 19.9 or less, adult; E78.5 Hyperlipidemia, unspecified; E11.65 Type 2 diabetes mellitus with hyperglycemia; F12.90 Cannabis use, unspecified, uncomplicated; F17.200 Nicotine dependence, unspecified, uncomplicated; D64.81 Anemia due to antineoplastic chemotherapy; T45.1X5A Adverse effect of antineoplastic and immunosuppressive drugs, initial encounter; J44.9 Chronic obstructive pulmonary disease, unspecified; E87.79 Other fluid overload; D63.1 Anemia in chronic kidney disease; E11.22 Type 2 diabetes mellitus with diabetic chronic kidney disease; Z99.2 Dependence on renal dialysis; Z88.5 Allergy status to narcotic agent; Z79.899 Other long term (current) drug therapy; Z79.4 Long term (current) use of insulin; Z79.82 Long term (current) use of aspirin; Y92.098 Other place in other non-institutional residence as the place of occurrence of the external cause; Z80.1 Family history of malignant neoplasm of trachea, bronchus and lung; Z80.8 Family history of malignant neoplasm of other organs or systems; Z80.3 Family history of malignant neoplasm of breast; Z83.3 Family history of diabetes mellitus; Z84.1 Family history of disorders of kidney and ureter
CPT/HCPCS: 36415; 71045; 80048; 80061; 80074; 82550; 82553; 82962; 83036; 83735; 83880; 84100; 84484; 85025; 85610; 85730; 87040; 93005; 93010; 93306; G0378; A9270-GY; J0360; J1170; J1815; J1940; J2405; J7030

== ENCOUNTER 2019-04-30 15:05 | Inpatient (IN) | payer MEDICARE ==
--- NOTE | 2019-04-30 15:21 | Event Note ---
ED Screening Note Date of service: 04/30/19 Time: 15:17 ED Screening Note: This is a 63 y.o. M. that presents to the ER with dyspnea x 1 day. PMH of ESRD on dialysis, pancreatic cancer receiving chemo, HTN, DM2, & HLD Patient states she feel like he is retaining fluid. States he went to dialysis on Wednesday and don't feel like anything was taken off. This initial assessment/diagnostic orders/clinical plan/treatment(s) is/are subject to change based on patients health status, clinical progression and re- assessment by fellow clinical providers in the ED. Further treatment and workup at subsequent clinical providers discretion. Patient/guardian urged not to elope from the ED as their condition may be serious if not clinically assessed and managed. Initial orders include: CXR and labs
[2019-04-30 15:50] LABS: Basophils % (Auto) 0.8 % (0.0-1.8); Eosinophils # (Auto) 0.1 K/mm3 (0.0-0.4); Eosinophils % (Auto) 1.1 % (0.0-4.3); Hematocrit 38.9 % (35.5-45.6); Hemoglobin 12.6 gm/dl (11.8-15.2); Lymphocytes # (Auto) 0.8 K/mm3 (1.2-5.4); Lymphocytes % (Auto) 12.6 % (13.4-35.0); Mean Corpuscular HGB Conc 32 % (32-34); Mean Corpuscular Volume 103 fl (84-94); Monocytes # (Auto) 0.5 K/mm3 (0.0-0.8); Monocytes % (Auto) 8.8 % (0.0-7.3); Platelet Count 134 K/mm3 (140-440); Red Blood Count 3.78 M/mm3 (3.65-5.03); Red Cell Distribution Width 17.8 % (13.2-15.2)
[2019-04-30 16:05] LABS: Albumin 3.7 g/dL (3.9-5); Calcium 9.3 mg/dL (8.4-10.2)
--- NOTE | 2019-04-30 16:16 | XRay Report ---
CHEST 2 VIEWS INDICATION / CLINICAL INFORMATION: dyspnea. COMPARISON: 12/21/2018 FINDINGS: SUPPORT DEVICES: Port-A-Cath remains on the right. HEART / MEDIASTINUM: No significant abnormality. LUNGS / PLEURA: Bilateral interstitial lung disease is seen of moderate severity. This may progressed slightly at the bases since the prior study. Upper lungs are relatively spared. No pneumothorax. ADDITIONAL FINDINGS: No significant additional findings. IMPRESSION: 1. No acute findings. Signer Name: Santos Zeng MD Signed: 04/30/2019 4:11 PM Workstation Name: [id number]
[2019-04-30] MEDS ORDERED: LABETALOL IV ONE (16:21)
[2019-04-30] MEDS ORDERED: ZOFRAN IV PRN (16:50)
[2019-04-30] MEDS ORDERED: TYLENOL PO PRN (16:50)
[2019-04-30] MEDS ORDERED: SODIUM CHLORIDE FLUSH SYRINGE 10 ML IV PRN (16:50)
--- NOTE | 2019-04-30 16:50 | History and Physical Report ---
History of Present Illness Chief complaint: I feel short of breath History of present illness: 63 YO Male with ESRD on HD(T,R,Sa), Pancreatic Cancer, HTN, COPD, Nicotine Dependence, Anemia, Severe Malnutrition presents to ED for evaluation. Pt states that he has experienced shortness of breath over the past 2 days with increasing symptoms over the past 12 hours. Pt transported to [facility] via private vehicle. Pt seen and evaluated in ED and found to have ESRD, Fluid Overload, as well as Acute Hypoxemic Respiratory Failure with pulse oximetry in the 80's. Pt treated with supplemental oxygen. Pt admitted to medical floor. Nephrology consulted in ED. Pt denies fever, chills, CP, Palpitations, NVD, prolonged travel/immobility, unilateral leg swelling, Individual/Family history of DVT/PE/Bleeding/Blood clotting Disorder. Prior admission on 12/21/18 reviewed. All listed mediation reconciled at time of admission. Past History Past Medical History: other (see hpi) Past Surgical History: Other (right leg surgery, Dialysis access) Social history: single, smoking. denies: alcohol abuse, prescription drug abuse Family history: hypertension Medications and Allergies Allergies Allergy/AdvReac Type Severity Reaction Status Date / Time morphine Allergy Swelling Verified 11/29/18 04:52 Home Medications Medication Instructions Recorded Confirmed Last Taken Type AtorvaSTATin [Lipitor] 40 mg PO QHS 04/27/17 12/21/18 12/20/18 History Vit B Comp No.3/Folic/C/Biotin 1 each PO DAILY 04/27/17 12/21/18 12/20/18 History [Carisa-Sonya Rx Tablet] traMADol [Ultram 50 MG tab] 50 mg PO Q6H PRN 04/27/17 12/21/18 12/20/18 History Amlodipine Besylate [Norvasc] 10 mg PO QDAY 08/04/18 12/21/18 12/20/18 History Aspirin [Adult Low Dose Aspirin EC] 81 mg PO DAILY 08/04/18 12/21/18 12/20/18 History Insulin Aspart [NovoLOG 100 10 units SUB-Q PRN 08/04/18 12/21/18 12/20/18 History UNITS/ML VIAL] Insulin Detemir [Levemir Flextouch] 30 units SUB-Q QHS 08/04/18 12/21/18 12/20/18 History raNITIdine HCl [Zantac] 150 mg PO QDAY 08/04/18 12/21/18 12/20/18 History oxyCODONE /ACETAMINOPHEN [Percocet 2 tab PO Q6H PRN #30 tablet 12/23/18 Unknown Rx 5/325 mg] Lisinopril [Zestril TAB] 20 mg PO QDAY #30 tablet 12/24/18 Unknown Rx Metoprolol [Lopressor TAB] 100 mg PO BID #60 tablet 12/24/18 Unknown Rx hydrALAZINE [Apresoline TAB] 100 mg PO TID #90 tab 12/24/18 Unknown Rx Review of Systems Constitutional: no weight loss, no weight gain, no fever, no chills Ears, nose, mouth and throat: no ear pain, no ear discharge, no tinnitis, no decreased hearing, no nose pain, no nasal congestion Cardiovascular: orthopnea, shortness of breath, no chest pain Respiratory: no cough, no cough with sputum, no excessive sputum, no hemoptysis Gastrointestinal: no abdominal pain, no nausea, no vomiting Genitourinary Male: no hematuria, no flank pain, no discharge, no urinary frequency, no urinary hesitancy Rectal: no pain, no incontinence, no bleeding Musculoskeletal: no neck stiffness, no neck pain, no shooting arm pain, no arm numbness/tingling, no low back pain, no shooting leg pain Integumentary: no rash, no pruritis, no redness, no sores, no wounds, no j aundice Neurological: no head injury, no transient paralysis, no paralysis, no weakness, no parathesias, no numbness, no tingling, no seizures Psychiatric: no anxiety, no memory loss, no change in sleep habits, no sleep disturbances, no insomnia, no hypersomnia, no change in appetite, no change in libido, no suicidal ideation Endocrine: no cold intolerance, no heat intolerance, no polyphagia, no excessive thirst, no polydipsia, no polyuria, no nocturia Hematologic/Lymphatic: no easy bruising, no easy bleeding, no lymphadenopathy, no lymphedema Allergic/Immunologic: no urticaria, no allergic rhinitis, no wheezing, no persistent infections, no anaphylaxis, no angioedema Exam - Constitutional Vitals: Temp Pulse Resp BP Pulse Ox 98.4 F 85 24 204/83 98 04/30/19 15:15 04/30/19 15:15 04/30/19 15:15 04/30/19 15:15 04/30/19 15:15 General appearance: Present: mild distress, cachectic - EENT Eyes: Present: PERRL ENT: hearing intact, clear oral mucosa - Neck Neck: Present: supple, normal ROM - Respiratory Respiratory effort: normal Respiratory: bilateral: CTA - Cardiovascular Heart Sounds: Present: S1 & S2. Absent: rub, click - Extremities Extremities: pulses symmetrical, No edema Peripheral Pulses: within normal limits - Abdominal General gastrointestinal: Present: soft, non-tender, non-distended, normal bowel sounds Male genitourinary: Present: normal - Integumentary Integumentary: Present: clear, warm, dry - Musculoskeletal Musculoskeletal: generalized weakness - Psychiatric Psychiatric: appropriate mood/affect, intact judgment & insight - Neurologic Neurologic: CNII-XII intact, moves all extremities Results - Labs CBC & Chem 7: 04/30/19 15:27 04/30/19 15:27 Labs: Abnormal lab results 04/30/19 04/30/19 Range/Units 15:27 15:27 MCV 103 H (84-94) fl MCH 33 H (28-32) pg RDW 17.8 H (13.2-15.2) % Plt Count 134 L (140-440) K/mm3 Lymph % (Auto) 12.6 L (13.4-35.0) % [place] % (Auto) 8.8 H (0.0-7.3) % Lymph # 0.8 L (1.2-5.4) K/mm3 Seg Neutrophils % 76.7 H (40.0-70.0) % Chloride 95.7 L (98-107) mmol/L BUN 21 H (9-20) mg/dL Creatinine 5.7 H (0.8-1.5) mg/dL Glucose 415 H (75-100) mg/dL Albumin 3.7 L (3.9-5) g/dL Assessment and Plan - Patient Problems (1) Acute respiratory failure with hypoxia Status: Acute Plan to address problem: Admit to medical floor, pulse oximetry, supplemental oxygen, nebulizer therapy, NIPPV as clinically indicated, chest x ray (2) ESRD (end stage renal disease) Status: Chronic Plan to address problem: Nephrology consulted for dialysis, strict I/O, daily weight, monitor uop q shift, pulse oximetry, avoid nephrotoxic agents. (3) Hypertensive urgency Status: Acute Plan to address problem: monitor bp q shift, Iv hydralazine prn for SBP >160, continue medical management (4) Pulmonary edema Status: Acute Qualifiers: Chronicity: acute Qualified Code(s): J81.0 - Acute pulmonary edema Plan to address problem: supportive care, dialysis as per renal team, suspected secondary to fluid overload, (5) Pancreatic cancer Status: Chronic Qualifiers: Pancreatic malignancy location: unspecified Qualified Code(s): C25.9 - Malignant neoplasm of pancreas, unspecified Plan to address problem: Pain control, supportive are. (6) DVT prophylaxis Status: Acute Plan to address problem: SCD to BLE while in bed, Pt ambulatory
[2019-04-30] MEDS ORDERED: ULTRAM PO PRN (16:52)
[2019-04-30] MEDS ORDERED: D50W (25GM) Syringe IV PRN ×2 (16:53→16:54)
[2019-04-30] MEDS ORDERED: HumuLIN R IV ONE (16:55)
--- NOTE | 2019-04-30 16:58 | Emergency Department Report ---
ED General Adult HPI - General Chief complaint: Dyspnea/Respdistress Stated complaint: SEBAS Time Seen by Provider: 04/30/19 15:16 Source: patient Mode of arrival: Ambulatory Limitations: No Limitations - History of Present Illness Initial comments: Patient is a 63-year-old -[place] male with past medical history of hypertension and end-stage renal disease who has hemodialysis on Wednesday and Wednesday who is here complaining of shortness of breath. Patient states he had dialysis for the correct length of time yesterday however he ayesha eves he didn't take enough fluid off. Patient states that last night after receiving dialysis he began having some increased shortness of breath. Patient states he is worse with exertion and when lying flat. Patient makes very little urine at baseline. Patient denies any chest pain fevers chills cough cold or congestion at this time. - Related Data Home Medications Medication Instructions Recorded Confirmed Last Taken AtorvaSTATin [Lipitor] 40 mg PO QHS 04/27/17 12/21/18 12/20/18 Vit B Comp No.3/Folic/C/Biotin 1 each PO DAILY 04/27/17 12/21/18 12/20/18 [Carisa-Sonya Rx Tablet] traMADol [Ultram 50 MG tab] 50 mg PO Q6H PRN 04/27/17 12/21/18 12/20/18 Amlodipine Besylate [Norvasc] 10 mg PO QDAY 08/04/18 12/21/18 12/20/18 Aspirin [Adult Low Dose Aspirin EC] 81 mg PO DAILY 08/04/18 12/21/18 12/20/18 Insulin Aspart [NovoLOG 100 10 units SUB-Q PRN 08/04/18 12/21/18 12/20/18 UNITS/ML VIAL] Insulin Detemir [Levemir Flextouch] 30 units SUB-Q QHS 08/04/18 12/21/18 12/20/18 raNITIdine HCl [Zantac] 150 mg PO QDAY 08/04/18 12/21/18 12/20/18 Previous Rx's Medication Instructions Recorded Last Taken Type oxyCODONE /ACETAMINOPHEN [Percocet 2 tab PO Q6H PRN #30 tablet 12/23/18 Unknown Rx 5/325 mg] Lisinopril [Zestril TAB] 20 mg PO QDAY #30 tablet 12/24/18 Unknown Rx Metoprolol [Lopressor TAB] 100 mg PO BID #60 tablet 12/24/18 Unknown Rx hydrALAZINE [Apresoline TAB] 100 mg PO TID #90 tab 12/24/18 Unknown Rx Allergies Allergy/AdvReac Type Severity Reaction Status Date / Time morphine Allergy Swelling Verified 11/29/18 04:52 ED Review of Systems ROS: Stated complaint: SEBAS Other details as noted in HPI Comment: All other systems reviewed and negative ED Past Medical Hx - Past Medical History Hx Hypertension: Yes Hx Congestive Heart Failure: No Hx Diabetes: Yes Hx Renal Disease: Yes Hx of Cancer: Yes (COLON/PANCREATIC) Hx Seizures: No Hx Kidney Stones: No Hx Asthma: No Hx COPD: No Hx HIV: No Additional medical history: Dialysis T Sat. TAKING CHEMO - Surgical History Additional Surgical History: graft to right leg - Social History Smoking Status: Current Some Day Smoker Substance Use Type: Marijuana - Medications Home Medications: Home Medications Medication Instructions Recorded Confirmed Last Taken Type AtorvaSTATin [Lipitor] 40 mg PO QHS 04/27/17 12/21/18 12/20/18 History Vit B Comp No.3/Folic/C/Biotin 1 each PO DAILY 04/27/17 12/21/18 12/20/18 History [Carisa-Sonya Rx Tablet] traMADol [Ultram 50 MG tab] 50 mg PO Q6H PRN 04/27/17 12/21/18 12/20/18 History Amlodipine Besylate [Norvasc] 10 mg PO QDAY 08/04/18 12/21/18 12/20/18 History Aspirin [Adult Low Dose Aspirin EC] 81 mg PO DAILY 08/04/18 12/21/18 12/20/18 History Insulin Aspart [NovoLOG 100 10 units SUB-Q PRN 08/04/18 12/21/18 12/20/18 History UNITS/ML VIAL] Insulin Detemir [Levemir Flextouch] 30 units SUB-Q QHS 08/04/18 12/21/18 12/20/18 History raNITIdine HCl [Zantac] 150 mg PO QDAY 08/04/18 12/21/18 12/20/18 History oxyCODONE /ACETAMINOPHEN [Percocet 2 tab PO Q6H PRN #30 tablet 12/23/18 Unknown Rx 5/325 mg] Lisinopril [Zestril TAB] 20 mg PO QDAY #30 tablet 12/24/18 Unknown Rx Metoprolol [Lopressor TAB] 100 mg PO BID #60 tablet 12/24/18 Unknown Rx hydrALAZINE [Apresoline TAB] 100 mg PO TID #90 tab 12/24/18 Unknown Rx ED Physical Exam - General Limitations: No Limitations General appearance: alert, in no apparent distress - Head Head exam: Present: atraumatic, normocephalic - Eye Eye exam: Present: normal appearance, PERRL, EOMI - ENT ENT exam: Present: mucous membranes moist - Neck Neck exam: Present: normal inspection - Respiratory Respiratory exam: Present: normal lung sounds bilaterally, rales. Absent: respiratory distress, wheezes, rhonchi, stridor - Cardiovascular Cardiovascular Exam: Present: regular rate, normal rhythm, normal heart sounds. Absent: systolic murmur, diastolic murmur, rubs, gallop - GI/Abdominal GI/Abdominal exam: Present: soft, normal bowel sounds. Absent: distended, tend erness, guarding, rebound - Rectal Rectal exam: Present: deferred - Extremities Exam Extremities exam: Present: normal inspection - Back Exam Back exam: Present: normal inspection - Neurological Exam Neurological exam: Present: alert, oriented X3 - Psychiatric Psychiatric exam: Present: normal affect, normal mood - Skin Skin exam: Present: warm, dry, intact, normal color. Absent: rash ED Course Vital Signs 04/30/19 15:15 Temperature 98.4 F Pulse Rate 85 Respiratory 24 Rate Blood Pressure 204/83 O2 Sat by Pulse 98 Oximetry ED Medical Decision Making - Lab Data Result diagrams: 04/30/19 15:27 04/30/19 15:27 Lab Results 04/30/19 04/30/19 Range/Units 15:27 15:27 WBC 5.9 (4.5-11.0) K/mm3 RBC 3.78 (3.65-5.03) M/mm3 Hgb 12.6 (11.8-15.2) gm/dl Hct 38.9 (35.5-45.6) % MCV 103 H (84-94) fl MCH 33 H (28-32) pg MCHC 32 (32-34) % RDW 17.8 H (13.2-15.2) % Plt Count 134 L (140-440) K/mm3 Lymph % (Auto) 12.6 L (13.4-35.0) % [place] % (Auto) 8.8 H (0.0-7.3) % Eos % (Auto) 1.1 (0.0-4.3) % Baso % (Auto) 0.8 (0.0-1.8) % Lymph # 0.8 L (1.2-5.4) K/mm3 [place] # 0.5 (0.0-0.8) K/mm3 Eos # 0.1 (0.0-0.4) K/mm3 Baso # 0.0 (0.0-0.1) K/mm3 Seg Neutrophils % 76.7 H (40.0-70.0) % Seg Neutrophils # 4.6 (1.8-7.7) K/mm3 Sodium 138 (137-145) mmol/L Potassium 4.5 (3.6-5.0) mmol/L Chloride 95.7 L (98-107) mmol/L Carbon Dioxide 27 (22-30) mmol/L Anion Gap 20 mmol/L BUN 21 H (9-20) mg/dL Creatinine 5.7 H (0.8-1.5) mg/dL Estimated GFR 12 ml/min BUN/Creatinine Ratio 4 % Glucose 415 H (75-100) mg/dL Calcium 9.3 (8.4-10.2) mg/dL Total Bilirubin 0.70 (0.1-1.2) mg/dL AST 24 (5-40) units/L ALT 16 (7-56) units/L Alkaline Phosphatase 105 (35-129) units/L Total Protein 8.0 (6.3-8.2) g/dL Albumin 3.7 L (3.9-5) g/dL Albumin/Globulin Ratio 0.9 % - Radiology Data Radiology results: image reviewed (S x-ray shows pulmonary vascular congestion and mild pulmonary edema) - Medical Decision Making . Patient's has some mild rails on physical exam and after ambulating his O2 sat dropped to 92% on room air and patient was visibly short of breath. Patient be admitted to the hospitalist service. Patient's cashier payments received is Dr. Ty will attempt to contact him as well. Critical care attestation.: If time is entered above; I have spent that time in minutes in the direct care of this critically ill patient, excluding procedure time. ED Disposition Clinical Impression: Acute respiratory failure with hypoxia, End-stage renal disease needing dialysis Type 2 diabetes mellitus Qualifiers: Diabetes mellitus fdc insulin use: unspecified fdc insulin use status Diabetes mellitus complication status: with other specified complication Qualified Code(s): E11.69 - Type 2 diabetes mellitus with other specified complication Pulmonary edema Qualifiers: Chronicity: acute Qualified Code(s): J81.0 - Acute pulmonary edema Disposition: OP ADMIT IP TO THIS HOSP Is pt being admited?: Yes Does the pt Need Aspirin: No Condition: Stable Instructions: Pulmonary Edema (ED), Hypertension (ED), Diabetes Mellitus Type 2 in Adults (ED) Time of Disposition: 16:58
[2019-04-30] MEDS: PERCOCET 5/325 PO PRN (18:20)
[2019-04-30] MEDS ORDERED: HumuLIN R ONE (18:53)
[2019-04-30] MEDS: HumaLOG SUB-Q SCH (18:56)
[2019-04-30] MEDS: APRESOLINE IV PRN (20:20)
[2019-04-30] MEDS: APRESOLINE PO SCH (20:20)
[2019-04-30] MEDS: SODIUM CHLORIDE FLUSH SYRINGE 10 ML IV SCH (21:22)
[2019-04-30] MEDS: METOPROLOL PO SCH (21:23)
[2019-05-01] MEDS: HumaLOG SUB-Q SCH ×4 (00:13→19:01)
[2019-05-01] MEDS: APRESOLINE IV PRN ×2 (02:22→19:01)
[2019-05-01] MEDS: PERCOCET 5/325 PO PRN ×2 (02:23→19:06)
[2019-05-01] MEDS ORDERED: CATAPRES PO ONE (06:21)
--- NOTE | 2019-05-01 08:53 | Progress Note ---
Assessment and Plan Assessment and plan: Acute hypoxemic respiratory failure. Etiology likely secondary to volume overload. However, given her history of pancreatic cancer we'll check d-dimer and if elevated perform CTA of chest to rule out PE. Continue supplemental oxygen to maintain sats greater than 92%. BiPAP as clinically indicated. Chest x-ray negative. ? Flash pulmonary edema ESRD. Continue hemodialysis per nephrology. Accelerated hypertension. Continue home medications of hydralazine 100 mg 3 times a day, Norvasc 10 mg daily lisinopril 20 mg daily and metoprolol 100 mg twice a day. Pancreatic cancer. Consult oncology. ?COPD. ?Per history. Patient denies. Patient does have tobacco use history. No evidence of wheezing on exam. History Interval history: Patient reports dyspnea has improved. Hospitalist Physical - Constitutional Vitals: Temp Pulse Resp BP Pulse Ox 98.9 F 72 20 190/81 97 04/30/19 23:46 05/01/19 02:22 04/30/19 23:46 05/01/19 02:22 05/01/19 08:26 General appearance: Present: no acute distress, cachectic - EENT Eyes: Present: PERRL, EOM intact ENT: hearing intact, clear oral mucosa, dentition normal - Neck Neck: Present: supple, normal ROM - Respiratory Respiratory effort: normal Respiratory: bilateral: CTA - Cardiovascular Rhythm: regular Heart Sounds: Present: S1 & S2. Absent: gallop, rub - Extremities Extremities: no ischemia, No edema, Full ROM - Abdominal General gastrointestinal: soft, non-tender, non-distended, normal bowel sounds - Integumentary Integumentary: Present: clear, warm, dry - Neurologic Neurologic: CNII-XII intact, moves all extremities Results - Labs CBC & Chem 7: 04/30/19 15:27 04/30/19 15:27 Labs: Laboratory Last Values WBC 5.9 K/mm3 (4.5-11.0) 04/30/19 15:27 RBC 3.78 M/mm3 (3.65-5.03) 04/30/19 15:27 Hgb 12.6 gm/dl (11.8-15.2) 04/30/19 15:27 Hct 38.9 % (35.5-45.6) 04/30/19 15:27 MCV 103 fl (84-94) H 04/30/19 15:27 MCH 33 pg (28-32) H 04/30/19 15:27 MCHC 32 % (32-34) 04/30/19 15: RDW 17.8 % (13.2-15.2) H 04/30/19 15:27 Plt Count 134 K/mm3 (140-440) L 04/30/19 15:27 Lymph % (Auto) 12.6 % (13.4-35.0) L 04/30/19 15:27 [place] % (Auto) 8.8 % (0.0-7.3) H 04/30/19 15:27 Eos % (Auto) 1.1 % (0.0-4.3) 04/30/19 15: Baso % (Auto) 0.8 % (0.0-1.8) 04/30/19 15: Lymph # 0.8 K/mm3 (1.2-5.4) L 04/30/19 15:27 [place] # 0.5 K/mm3 (0.0-0.8) 04/30/19 15: Eos # 0.1 K/mm3 (0.0-0.4) 04/30/19 15: Baso # 0.0 K/mm3 (0.0-0.1) 04/30/19 15: Seg Neutrophils % 76.7 % (40.0-70.0) H 04/30/19 15:27 Seg Neutrophils # 4.6 K/mm3 (1.8-7.7) 04/30/19 15:27 Sodium 138 mmol/L (137-145) 04/30/19 15:27 Potassium 4.5 mmol/L (3.6-5.0) 04/30/19 15:27 Chloride 95.7 mmol/L (98-107) L 04/30/19 15:27 Carbon Dioxide 27 mmol/L (22-30) 04/30/19 15:27 Anion Gap 20 mmol/L 04/30/19 15:27 BUN 21 mg/dL (9-20) H 04/30/19 15:27 Creatinine 5.7 mg/dL (0.8-1.5) H 04/30/19 15:27 Estimated GFR 12 ml/min 04/30/19 15:27 BUN/Creatinine Ratio 4 % 04/30/19 15:27 Glucose 415 mg/dL (75-100) H 04/30/19 15:27 POC Glucose 360 (70-105) H 05/01/19 00:06 Calcium 9.3 mg/dL (8.4-10.2) 04/30/19 15:27 Total Bilirubin 0.70 mg/dL (0.1-1.2) 04/30/19 15:27 AST 24 units/L (5-40) 04/30/19 15:27 ALT 16 units/L (7-56) 04/30/19 15:27 Alkaline Phosphatase 105 units/L (35-129) 04/30/19 15:27 Total Protein 8.0 g/dL (6.3-8.2) 04/30/19 15:27 Albumin 3.7 g/dL (3.9-5) L 04/30/19 15:27 Albumin/Globulin Ratio 0.9 % 04/30/19 15:27 Active Medications - Current Medications Current Medications: Generic Name Dose Route Start Last Admin Trade Name Freq PRN Reason Stop Dose Admin Acetaminophen 650 mg 04/30/19 16:50 Tylenol PO Q4H PRN Pain MILD(1-3)/Fever >100.5/STARKS Amlodipine Besylate 10 mg 05/01/19 10:00 Norvasc PO DAILY [facility] Aspirin 81 mg 05/01/19 10:00 Halfprin Ec PO DAILY [facility] Atorvastatin Calcium 40 mg 04/30/19 22:00 04/30/19 21:23 Lipitor PO 40 mg QHS KIKI Administration Dextrose 50 ml 04/30/19 16:53 D50w (25gm) Syringe IV Q30MIN PRN Hypoglycemia Famotidine 20 mg 05/01/19 10:00 Pepcid PO DAILY KIKI Hydralazine HCl 100 mg 04/30/19 20:00 04/30/19 20:20 Apresoline PO 100 mg TID KIKI Administration Hydralazine HCl 10 mg 04/30/19 17:22 05/01/19 02:22 Apresoline IV 10 mg Q6HR PRN Administration HTN SBP>165 Insulin Human Lispro 0 unit 04/30/19 18:00 05/01/19 06:26 Humalog SUB-Q Not Given Q6HR [facility] Protocol Lisinopril 20 mg 05/01/19 10:00 Zestril PO QDAY KIKI Metoprolol Tartrate 100 mg 04/30/19 22:00 04/30/19 21:23 Lopressor PO 100 mg BID KIKI Administration Multivit/Ca Carb/B Cmplx/FA/Prenat 1 cap 05/01/19 10:00 Renal Caps PO QDAY KIKI Ondansetron HCl 4 mg 04/30/19 16:50 Zofran IV Q8H PRN Nausea And Vomiting Oxycodone/Acetaminophen 2 tab 04/30/19 16:52 05/01/19 02:23 Percocet 5/325 PO 2 tab Q6H PRN Administration Pain, Moderate (4-6) Sodium Chloride 10 ml 04/30/19 22:00 04/30/19 21:22 Sodium Chloride Flush Syringe 10 Ml IV 10 ml BID KIKI Administration Sodium Chloride 10 ml 04/30/19 16:50 Sodium Chloride Flush Syringe 10 Ml IV PRN PRN LINE FLUSH Tramadol HCl 50 mg 04/30/19 16:52 Ultram PO Q6H PRN PAIN
[2019-05-01] MEDS: Renal Caps PO SCH (09:39)
[2019-05-01] MEDS: ZESTRIL PO SCH (09:41)
[2019-05-01] MEDS: METOPROLOL PO SCH ×2 (09:42→22:26)
[2019-05-01] MEDS: HALFPRIN EC PO SCH (09:43)
[2019-05-01] MEDS: APRESOLINE PO SCH ×3 (09:45→22:26)
[2019-05-01] MEDS: PEPCID PO SCH (09:45)
[2019-05-01] MEDS: SODIUM CHLORIDE FLUSH SYRINGE 10 ML IV SCH (09:58)
[2019-05-01] MEDS ORDERED: NON-FORMULARY (Ranitidine Hcl [Zantac] 150 MG) PO SCH (10:00)
[2019-05-01] MEDS ORDERED: NON-FORMULARY (Vit B Comp No.3/Folic/C/Biotin [Rena-Vite Rx Tablet] 1 EACH) PO SCH (10:00)
[2019-05-01] MEDS ORDERED: NACL 0.9% 100 ML IV PRN (10:31)
--- NOTE | 2019-05-01 10:38 | Consultation ---
History of Present Illness - Reason for Consult Consult date: 05/01/19 end stage renal disease Requesting physician: JHON CREWS - History of Present Illness This is a 63 yo AAM with past medical history of [place]D on [place] on [place] [facility], Pancreatic Cancer, HTN, COPD, Nicotine Dependence, Anemia, Severe Malnutrition presents to ED with complaints of shortness of breath over the past 2 days with increasing symptoms over the past 12 hours. In ER pt was found to be hypoxic with pulse oximetry in the 80's. Pt treated with supplemental oxygen. Pt admitted to medical floor. CXR showed not acute findings, however pt states that at his last HD treatment on Sat, he did not have enough fluid removed since he was close to his EDW. Pt denies fever, chills, CP, Palpitations, NVD, prolonged travel/immobility, unilateral leg swelling. Past History Past Medical History: other (see hpi) Past Surgical History: Other (right leg surgery, Dialysis access) Social history: single, smoking. denies: alcohol abuse, prescription drug abuse Family history: hypertension Medications and Allergies Allergies Allergy/AdvReac Type Severity Reaction Status Date / Time morphine Allergy Swelling Verified 11/29/18 04:52 Home Medications Medication Instructions Recorded Confirmed Last Taken Type AtorvaSTATin [Lipitor] 40 mg PO QHS 04/27/17 05/01/19 12/20/18 History Vit B Comp No.3/Folic/C/Biotin 1 each PO DAILY 04/27/17 12/21/18 12/20/18 History [Carisa-Sonya Rx Tablet] traMADol [Ultram 50 MG tab] 50 mg PO Q6H PRN 04/27/17 05/01/19 12/20/18 History Amlodipine Besylate [Norvasc] 10 mg PO QDAY 08/04/18 05/01/19 12/20/18 History Aspirin [Adult Low Dose Aspirin EC] 81 mg PO DAILY 08/04/18 05/01/19 12/20/18 History Insulin Aspart [NovoLOG 100 10 units SUB-Q PRN 08/04/18 05/01/19 12/20/18 History UNITS/ML VIAL] Insulin Detemir [Levemir Flextouch] 30 units SUB-Q QHS 08/04/18 05/01/19 12/20/18 History raNITIdine HCl [Zantac] 150 mg PO QDAY 08/04/18 05/01/19 12/20/18 History oxyCODONE /ACETAMINOPHEN [Percocet 2 tab PO Q6H PRN #30 tablet 12/23/18 Unknown Rx 5/325 mg] Lisinopril [Zestril TAB] 20 mg PO QDAY #30 tablet 12/24/18 Unknown Rx Metoprolol [Lopressor TAB] 100 mg PO BID #60 tablet 12/24/18 Unknown Rx hydrALAZINE [Apresoline TAB] 100 mg PO TID #90 tab 12/24/18 05/01/19 Unknown Rx Carvedilol [Coreg] 25 mg PO BID 05/01/19 05/01/19 Unknown History Vit B Comp No.3/Folic/C/Biotin 1 each PO DAILY 05/01/19 05/01/19 Unknown History [Carisa-Sonya Rx Tablet] Active Meds: Active Medications Acetaminophen (Tylenol) 650 mg PO Q4H PRN PRN Reason: Pain MILD(1-3)/Fever >100.5/STARKS Amlodipine Besylate (Norvasc) 10 mg PO DAILY [facility] Last Admin: 05/01/19 09:43 Dose: 10 mg Documented by: Aspirin (Halfprin Ec) 81 mg PO DAILY [facility] Last Admin: 05/01/19 09:43 Dose: 81 mg Documented by: Atorvastatin Calcium (Lipitor) 40 mg PO QHS [facility] Last Admin: 04/30/19 21:23 Dose: 40 mg Documented by: Dextrose (D50w (25gm) Syringe) 50 ml IV Q30MIN PRN PRN Reason: Hypoglycemia Famotidine (Pepcid) 20 mg PO DAILY [facility] Last Admin: 05/01/19 09:45 Dose: 20 mg Documented by: Hydralazine HCl (Apresoline) 100 mg PO TID [facility] [place] Last Admin: 05/01/19 09:45 Dose: 100 mg Documented by: Hydralazine HCl (Apresoline) 10 mg IV Q6HR PRN PRN Reason: HTN SBP>165 Last Admin: 05/01/19 02:22 Dose: 10 mg Documented by: Sodium Chloride (Nacl 0.9%) 100 mls @ 999 mls/hr IV PRESTON PRN PRN Reason: Hypotension Insulin Human Lispro (Humalog) 0 unit SUB-Q Q6HR [facility]; Protocol Last Admin: 05/01/19 06:26 Dose: Not Given Documented by: Lisinopril (Zestril) 20 mg PO QDAY [facility] Last Admin: 05/01/19 09:41 Dose: 20 mg Documented by: Metoprolol Tartrate (Lopressor) 100 mg PO BID [facility] [place] Last Admin: 05/01/19 09:42 Dose: 100 mg Documented by: Multivit/Ca Carb/B Cmplx/FA/Prenat (Renal Caps) 1 cap PO QDAY [facility] [place] Last Admin: 05/01/19 09:39 Dose: 1 cap Documented by: Ondansetron HCl (Zofran) 4 mg IV Q8H PRN PRN Reason: Nausea And Vomiting Oxycodone/Acetaminophen (Percocet 5/325) 2 tab PO Q6H PRN PRN Reason: Pain, Moderate (4-6) Last Admin: 05/01/19 02:23 Dose: 2 tab Documented by: Sodium Chloride (Sodium Chloride Flush Syringe 10 Ml) 10 ml IV BID [facility] Last Admin: 05/01/19 09:58 Dose: 10 ml Documented by: Sodium Chloride (Sodium Chloride Flush Syringe 10 Ml) 10 ml IV PRN PRN PRN Reason: LINE FLUSH Tramadol HCl (Ultram) 50 mg PO Q6H PRN PRN Reason: PAIN Review of Systems All systems: negative Constitutional: fatigue, weakness Cardiovascular: shortness of breath, dyspnea on exertion Exam - Vital Signs Vital signs: Vital Signs Temp Pulse Resp BP Pulse Ox 98.4 F 85 24 204/83 98 04/30/19 15:15 04/30/19 15:15 04/30/19 15:15 04/30/19 15:15 04/30/19 15:15 - General Appearance General appearance: well-developed, well-nourished, appears stated age EENT: ATNC, PERRL, mucous membranes moist Neck: Present: neck supple Respiratory: Clear to Ascultation Heart: regular, S1S2 Gastrointestinal: Present: normoactive bowel sounds Integumentary: no rash, other (no edema ) Neurologic: no focal deficit, alert and oriented x3, strength 5/5, CN 3-12 intact Psychiatric: mood/affect appropriate, cooperative Results - Lab Results 04/30/19 15:27 04/30/19 15:27 Most recent lab results Calcium 9.3 mg/dL (8.4-10.2) 04/30/19 15:27 Assessment and Plan - Patient Problems (1) End-stage renal disease needing dialysis Current Visit: No Status: Acute Plan to address problem: Will arrange additional isolated UF with target fluid removal of 2L as tolerated . resume maintenance HD on TTS schedule (2) Hypertensive chronic kidney disease with stage 5 chronic kidney disease or end stage renal disease Current Visit: Yes Status: Acute Plan to address problem: additional isolated UF for further volume/BP control. cont current BP meds (3) Volume overload Current Visit: No Status: Acute Plan to address problem: will decreased his EDW at the outpatient HD clinic. additional UF today (4) Type 2 diabetes mellitus with diabetic chronic kidney disease Current Visit: Yes Status: Acute Plan to address problem: DM management as per primary attending
[2019-05-01 12:41] LABS: Albumin 3.6 g/dL (3.9-5); Calcium 9.2 mg/dL (8.4-10.2)
[2019-05-01 13:35] LABS: Hepatitis B Surface Antigen Non-Reactive (Negative); Hepatitis C Virus Antibody Reactive (NonReactive)
[2019-05-02] MEDS: HumaLOG SUB-Q SCH ×4 (00:44→18:19)
[2019-05-02] MEDS: SODIUM CHLORIDE FLUSH SYRINGE 10 ML IV SCH ×3 (00:46→23:07)
[2019-05-02] MEDS ORDERED: NACL 0.9% 100 ML IV PRN (07:41)
--- NOTE | 2019-05-02 09:17 | Progress Note ---
Assessment and Plan Assessment and plan: Acute hypoxemic respiratory failure. Etiology likely secondary to volume overload. D-dimer elevated . Will check CTA of chest to rule out PE. I discussed with Dr. dyer aboutdoing dialysis after CTA Continue supplemental oxygen to maintain sats greater than 92%. BiPAP as clinically indicated. Chest x-ray negative. ? Flash pulmonary edema ESRD. Continue hemodialysis per nephrology. Accelerated hypertension. Continue home medications of hydralazine 100 mg 3 times a day, Norvasc 10 mg daily lisinopril 20 mg daily and metoprolol 100 mg twice a day. Pancreatic cancer. ?COPD. ?Per history. Patient denies. Patient does have tobacco use history. No evidence of wheezing on exam. History Interval history: Less shortness of breath Hospitalist Physical - Physical exam Narrative exam: Gen: Not in acute distress, lying in bed, HEENT: Normocephalic, atraumatic Neck: supple, no JVD Heart: S1 and S2 reg, no murmurs, rubs or gallop Lungs: Bilateral basal crackles, no rhonchi, no wheeze Abd: soft, non tender, non distended, normal BS, Ext: No edema, no clubbing, no cyanosis Neuro: Awake, alert, oriented X 3, no focal neurological signs - Constitutional Vitals: Temp Pulse Resp BP Pulse Ox 99.1 F 68 16 172/72 93 05/02/19 06:08 05/02/19 06:08 05/02/19 08:24 05/02/19 06:08 05/02/19 06:08 General appearance: Present: no acute distress Results - Labs CBC & Chem 7: 04/30/19 15:27 05/01/19 11:54 Labs: Laboratory Last Values WBC 5.9 K/mm3 (4.5-11.0) 04/30/19 15:27 RBC 3.78 M/mm3 (3.65-5.03) 04/30/19 15:27 Hgb 12.6 gm/dl (11.8-15.2) 04/30/19 15:27 Hct 38.9 % (35.5-45.6) 04/30/19 15:27 MCV 103 fl (84-94) H 04/30/19 15:27 MCH 33 pg (28-32) H 04/30/19 15:27 MCHC 32 % (32-34) 04/30/19 15:27 RDW 17.8 % (13.2-15.2) H 04/30/19 15:27 Plt Count 134 K/mm3 (140-440) L 04/30/19 15:27 Lymph % (Auto) 12.6 % (13.4-35.0) L 04/30/19 15:27 [place] % (Auto) 8.8 % (0.0-7.3) H 04/30/19 15:27 Eos % (Auto) 1.1 % (0.0-4.3) 04/30/19 15:27 Baso % (Auto) 0.8 % (0.0-1.8) 04/30/19 15:27 Lymph # 0.8 K/mm3 (1.2-5.4) L 04/30/19 15:27 [place] # 0.5 K/mm3 (0.0-0.8) 04/30/19 15:27 Eos # 0.1 K/mm3 (0.0-0.4) 04/30/19 15:27 Baso # 0.0 K/mm3 (0.0-0.1) 04/30/19 15:27 Seg Neutrophils % 76.7 % (40.0-70.0) H 04/30/19 15:27 Seg Neutrophils # 4.6 K/mm3 (1.8-7.7) 04/30/19 15:27 D-Dimer 1110.71 ng/mlDDU (0-234) H 05/01/19 11:49 Sodium 138 mmol/L (137-145) 05/01/19 11:54 Potassium 4.8 mmol/L (3.6-5.0) 05/01/19 11:54 Chloride 96.2 mmol/L (98-107) L 05/01/19 11:54 Carbon Dioxide 24 mmol/L (22-30) 05/01/19 11:54 Anion Gap 23 mmol/L 05/01/19 11:54 BUN 30 mg/dL (9-20) H 05/01/19 11:54 Creatinine 7.1 mg/dL (0.8-1.5) H 05/01/19 11:54 Estimated GFR 10 ml/min 05/01/19 11:54 BUN/Creatinine Ratio 4 % 05/01/19 11:54 Glucose 218 mg/dL (75-100) H 05/01/19 11:54 POC Glucose 316 (70-105) H 05/02/19 06:14 Calcium 9.2 mg/dL (8.4-10.2) 05/01/19 11:54 Total Bilirubin 0.50 mg/dL (0.1-1.2) 05/01/19 11:54 AST 31 units/L (5-40) 05/01/19 11:54 ALT 15 units/L (7-56) 05/01/19 11:54 Alkaline Phosphatase 99 units/L (35-129) 05/01/19 11:54 Total Protein 7.2 g/dL (6.3-8.2) 05/01/19 11:54 Albumin 3.6 g/dL (3.9-5) L 05/01/19 11:54 Albumin/Globulin Ratio 1.0 % 05/01/19 11:54 Hepatitis A IgM Ab Non-reactive (NonReactive) 05/01/19 11:54 Hep Bs Antigen Non-reactive (Negative) 05/01/19 11:54 Hep B Core IgM Ab Non-reactive (NonReactive) 05/01/19 11:54 Hepatitis C Antibody Reactive (NonReactive) A 05/01/19 11:54 Active Medications - Current Medications Current Medications: Generic Name Dose Route Start Last Admin Trade Name Freq PRN Reason Stop Dose Admin Acetaminophen 650 mg 04/30/19 16:50 Tylenol PO Q4H PRN Pain MILD(1-3)/Fever >100.5/STARKS Amlodipine Besylate 10 mg 05/01/19 10:00 05/01/19 09:43 Norvasc PO 10 mg DAILY KIKI Administration Aspirin 81 mg 05/01/19 10:00 05/01/19 09:43 Halfprin Ec PO 81 mg DAILY KIKI Administration Atorvastatin Calcium 40 mg 04/30/19 22:00 05/01/19 22:26 Lipitor PO 40 mg QHS KIKI Administration Dextrose 50 ml 04/30/19 16:53 D50w (25gm) Syringe IV Q30MIN PRN Hypoglycemia Famotidine 20 mg 05/01/19 10:00 05/01/19 09:45 Pepcid PO 20 mg DAILY KIKI Administration Hydralazine HCl 100 mg 04/30/19 20:00 05/01/19 22:26 Apresoline PO 100 mg TID KIKI Administration Hydralazine HCl 10 mg 04/30/19 17:22 05/01/19 19:01 Apresoline IV 10 mg Q6HR PRN Administration HTN SBP>165 Sodium Chloride 100 mls @ 999 mls/hr 05/02/19 07:41 Nacl 0.9% IV PRESTON PRN Hypotension Insulin Human Lispro 0 unit 04/30/19 18:00 05/02/19 07:00 Humalog SUB-Q 6 unit Q6HR KIKI Administration Protocol Lisinopril 20 mg 05/01/19 10:00 05/01/19 09:41 Zestril PO 20 mg QDAY KIKI Administration Metoprolol Tartrate 100 mg 04/30/19 22:00 05/01/19 22:26 Lopressor PO 100 mg BID KIKI Administration Multivit/Ca Carb/B Cmplx/FA/Prenat 1 cap 05/01/19 10:00 05/01/19 09:39 Renal Caps PO 1 cap QDAY KIKI Administration Ondansetron HCl 4 mg 04/30/19 16:50 Zofran IV Q8H PRN Nausea And Vomiting Oxycodone/Acetaminophen 2 tab 04/30/19 16:52 05/01/19 19:06 Percocet 5/325 PO 2 tab Q6H PRN Administration Pain, Moderate (4-6) Sodium Chloride 10 ml 04/30/19 22:00 05/02/19 00:46 Sodium Chloride Flush Syringe 10 Ml IV 10 ml BID KIKI Administration Sodium Chloride 10 ml 04/30/19 16:50 Sodium Chloride Flush Syringe 10 Ml IV PRN PRN LINE FLUSH Tramadol HCl 50 mg 04/30/19 16:52 Ultram PO Q6H PRN PAIN Nutrition/Malnutrition Assess - Dietary Evaluation Nutrition/Malnutrition Findings: Nutrition Notes Start: 05/01/19 15:01 Freq: Status: Active Protocol: Document 05/01/19 15:01 OH (Rec: 05/01/19 15:14 OH [id number]) Nutrition Notes Need for Assessment generated from: MD Order Initial or Follow up Assessment Current Diagnosis CKD (stage V CKD),Diabetes, Respiratory Failure Other Pertinent Diagnosis Smoker; pancreatic CA; DIALYSIS Current Diet renal/cardiac/consistent CHO Labs/Tests Reviewed Pertinent Medications Reviewed Height 5 ft 9 in Weight 65.7 kg [place] Body Weight (kg) 72.72 BMI 21.4 Intake Prior to Admission Fair Weight Status Appropriate Subjective/Other Information Pt. lying in bed. Pt. states he has had some nausea. He is on ICHD tx. Pt. verbalized he feels comfortable knowing what to eat related to his ESRD diagnosis. Percent of energy/protein needs met: <50/50% Burn Absent Trauma Absent GI Symptoms Nausea Food Allergy No Current % PO Poor (25-49%) Minimum of two criteria Yes Energy Intake (severe) < or equal to 50% Estimated Energy Requirement > or equal to 5 days Body Fat Depletion Moderate depletion (severe) Muscle Mass Moderate Depletion (severe) Reduced Information [employer] Data [employer] Analyst Strength N/A (non-severe) #1 Nutrition Diagnosis Inadequate oral intake Etiology LOW APPETITE As Evidenced by Signs and Symptoms consuming <75% estimated energy needs Diagnosis Progress(for reassessment Continues documentation) Is patient on ventilator? No Is Patient Ambulatory and/or Out of Bed Yes REE-([facility]-ambulatory/OOB) [ 1875.094 [id number]] Kcal/Kg value to use for calculation 32 Approximate Energy Requirements Using 2102 kcal/Kg Calculation Used for Recommendations Kcal/kg Additional Notes PRO: 1.2-1.3 G/KG 79-85 g/ day FLUID: 1000 mL/day Nutrition Intervention Change Diet Order: cont renal diet Goal #1 po intake to exceed 75% at meal times Goal #2 ONS (NEPRO) to be provided BID Follow-Up By: 05/04/19 Additional Comments F/U ONS TOLERANCE/PO INTAKE
[2019-05-02] MEDS: METOPROLOL PO SCH ×2 (10:32→23:09)
[2019-05-02] MEDS: HALFPRIN EC PO SCH (10:32)
[2019-05-02] MEDS: PEPCID PO SCH (10:32)
[2019-05-02] MEDS: Renal Caps PO SCH (10:32)
[2019-05-02] MEDS: ZESTRIL PO SCH (10:33)
[2019-05-02] MEDS: PERCOCET 5/325 PO PRN ×2 (10:42→21:01)
[2019-05-02] MEDS: APRESOLINE PO SCH ×3 (10:42→21:02)
--- NOTE | 2019-05-02 11:21 | Progress Note ---
Assessment and Plan - Patient Problems (1) End-stage renal disease needing dialysis Current Visit: No Status: Acute Plan to address problem: pt awaiting CTA to rule out PE in the setting of elevated D-Dimer , will arrange HD after CTA. Cont HD on TTS schedule (2) Hypertensive chronic kidney disease with stage 5 chronic kidney disease or end stage renal disease Current Visit: Yes Status: Acute Plan to address problem: increase UF for further volume/BP control. cont current BP meds (3) Volume overload Current Visit: No Status: Acute Plan to address problem: will decreased his EDW at the outpatient HD clinic.target UF 2-3L as tolerated today (4) Type 2 diabetes mellitus with diabetic chronic kidney disease Current Visit: Yes Status: Acute Plan to address problem: DM management as per primary attending Subjective Date of service: 05/02/19 Principal diagnosis: ESRD Interval history: Pt awake, alert, in no acute respiratory distress Objective - Vital Signs Vital signs: Vital Signs - 12hr 05/02/19 05/02/19 05/02/19 06:08 08:24 10:32 Temperature 99.1 F Pulse Rate 68 69 Respiratory 20 16 Rate Blood Pressure 172/72 185/77 O2 Sat by Pulse 93 Oximetry - General Appearance General appearance: well-developed, well-nourished, appears stated age EENT: ATNC, PERRL, mucous membranes moist Neck: no JVD Respiratory: Present: Clear to Ascultation Cardiology: regular, S1S2 Gastrointestinal: normoactive bowel sounds Integumentary: no rash, other (no edema ) Neurologic: no focal deficit, alert and oriented x3, strength 5/5, CN 3-12 intact Psychiatric: mood/affect appropriate, cooperative - Lab 04/30/19 15:27 05/01/19 11:54 Most recent lab results Calcium 9.2 mg/dL (8.4-10.2) 05/01/19 11:54 Medications & Allergies - Medications Allergies/Adverse Reactions: Allergies morphine Allergy (Verified 11/29/18 04:52) Swelling Home Medications: Home Medications Medication Instructions Recorded Confirmed Last Taken Type AtorvaSTATin [Lipitor] 40 mg PO QHS 04/27/17 05/01/19 12/20/18 History Vit B Comp No.3/Folic/C/Biotin 1 each PO DAILY 04/27/17 12/21/18 12/20/18 His tory [Carisa-Sonya Rx Tablet] traMADol [Ultram 50 MG tab] 50 mg PO Q6H PRN 04/27/17 05/01/19 12/20/18 History Amlodipine Besylate [Norvasc] 10 mg PO QDAY 08/04/18 05/01/19 12/20/18 History Aspirin [Adult Low Dose Aspirin EC] 81 mg PO DAILY 08/04/18 05/01/19 12/20/18 History Insulin Aspart [NovoLOG 100 10 units SUB-Q PRN 08/04/18 05/01/19 12/20/18 History UNITS/ML VIAL] Insulin Detemir [Levemir Flextouch] 30 units SUB-Q QHS 08/04/18 05/01/19 12/20/18 History raNITIdine HCl [Zantac] 150 mg PO QDAY 08/04/18 05/01/19 12/20/18 History oxyCODONE /ACETAMINOPHEN [Percocet 2 tab PO Q6H PRN #30 tablet 12/23/18 Unknown Rx 5/325 mg] Lisinopril [Zestril TAB] 20 mg PO QDAY #30 tablet 12/24/18 Unknown Rx Metoprolol [Lopressor TAB] 100 mg PO BID #60 tablet 12/24/18 Unknown Rx hydrALAZINE [Apresoline TAB] 100 mg PO TID #90 tab 12/24/18 05/01/19 Unknown Rx Carvedilol [Coreg] 25 mg PO BID 05/01/19 05/01/19 Unknown History Vit B Comp No.3/Folic/C/Biotin 1 each PO DAILY 05/01/19 05/01/19 Unknown History [Carisa-Sonya Rx Tablet] Active Medications: Generic Name Dose Route Start Last Admin Trade Name Freq PRN Reason Stop Dose Admin Acetaminophen 650 mg 04/30/19 16:50 Tylenol PO Q4H PRN Pain MILD(1-3)/Fever >100.5/STARKS Amlodipine Besylate 10 mg 05/01/19 10:00 05/02/19 10:33 Norvasc PO 10 mg DAILY KIKI Administration Aspirin 81 mg 05/01/19 10:00 05/02/19 10:32 Halfprin Ec PO 81 mg DAILY KIKI Administration Atorvastatin Calcium 40 mg 04/30/19 22:00 05/01/19 22:26 Lipitor PO 40 mg QHS KIKI Administration Dextrose 50 ml 04/30/19 16:53 D50w (25gm) Syringe IV Q30MIN PRN Hypoglycemia Famotidine 20 mg 05/01/19 10:00 05/02/19 10:32 Pepcid PO 20 mg DAILY KIKI Administration Hydralazine HCl 100 mg 04/30/19 20:00 05/02/19 10:42 Apresoline PO 100 mg TID KIKI Administration Hydralazine HCl 10 mg 04/30/19 17:22 05/01/19 19:01 Apresoline IV 10 mg Q6HR PRN Administration HTN SBP>165 Sodium Chloride 100 mls @ 999 mls/hr 05/02/19 07:41 Nacl 0.9% IV PRESTON PRN Hypotension Insulin Human Lispro 0 unit 04/30/19 18:00 05/02/19 07:00 Humalog SUB-Q 6 unit Q6HR KIKI Administration Protocol Lisinopril 20 mg 05/01/19 10:00 05/02/19 10:33 Zestril PO 20 mg QDAY KIKI Administration Metoprolol Tartrate 100 mg 04/30/19 22:00 05/02/19 10:32 Lopressor PO 100 mg BID KIKI Administration Multivit/Ca Carb/B Cmplx/FA/Prenat 1 cap 05/01/19 10:00 05/02/19 10:32 Renal Caps PO 1 cap QDAY KIKI Administration Ondansetron HCl 4 mg 04/30/19 16:50 Zofran IV Q8H PRN Nausea And Vomiting Oxycodone/Acetaminophen 2 tab 04/30/19 16:52 05/02/19 10:42 Percocet 5/325 PO 2 tab Q6H PRN Administration Pain, Moderate (4-6) Sodium Chloride 10 ml 04/30/19 22:00 05/02/19 10:42 Sodium Chloride Flush Syringe 10 Ml IV 10 ml BID KIKI Administration Sodium Chloride 10 ml 04/30/19 16:50 Sodium Chloride Flush Syringe 10 Ml IV PRN PRN LINE FLUSH Tramadol HCl 50 mg 04/30/19 16:52 Ultram PO Q6H PRN PAIN
--- NOTE | 2019-05-02 15:34 | Cat Scan Report ---
CTA CHEST WITH CONTRAST INDICATION : Elevated d-dimer. TECHNIQUE: Axial imaging performed through the chest, with contrast bolus timing set to maximize opa cification of the pulmonary arteries. Sagittal and coronal reformatted images. 3-plane MIP reformatte d images were obtained. All CT scans at this location are performed using CT dose reduction for ALAR A by means of automated exposure control. 100 mL of intravenous contrast administered. COMPARISON: None FINDINGS: Bolus: Contrast bolus timing is adequate. PTE: No filling defect is present to suggest PTE. Mediastinum: Mild cardiomegaly. No pericardial effusion. The thyroid gland, tracheobronchial tree an d esophagus are unremarkable. No pathologic mediastinal adenopathy. Lungs: Bilateral pulmonary congestion and small bilateral layering pleural effusions are identified. Bones: Degenerative changes in the spine with nothing acute. Upper abdomen: Numerous tiny simple appearing renal cysts. IMPRESSION: No evidence for pulmonary embolus. CHF. Signer Name: Dane Zaidi Jr, MD Signed: 05/02/2019 3:29 PM Workstation Name: [id number]
[2019-05-02] MEDS ORDERED: NACL 0.9 (PRIMING MACHINE ONLY DIALYSIS) MC ONE (21:14)
[2019-05-03] MEDS: HumaLOG SUB-Q SCH ×4 (00:14→17:18)
[2019-05-03] MEDS: PERCOCET 5/325 PO PRN ×2 (06:46→15:26)
[2019-05-03] MEDS: APRESOLINE IV PRN ×2 (06:47→15:21)
[2019-05-03] MEDS ORDERED: LANTUS SUB-Q ONE (09:00)
[2019-05-03] MEDS: METOPROLOL PO SCH (10:15)
[2019-05-03] MEDS: APRESOLINE PO SCH ×2 (10:15→13:14)
[2019-05-03] MEDS: ZESTRIL PO SCH (10:15)
[2019-05-03] MEDS: HALFPRIN EC PO SCH (10:16)
[2019-05-03] MEDS: PEPCID PO SCH (10:16)
[2019-05-03] MEDS: SODIUM CHLORIDE FLUSH SYRINGE 10 ML IV SCH (10:16)
[2019-05-03] MEDS: Renal Caps PO SCH (10:16)
--- NOTE | 2019-05-03 11:05 | Progress Note ---
Assessment and Plan - Patient Problems (1) End-stage renal disease needing dialysis Current Visit: No Status: Acute Plan to address problem: . Cont HD on TTS schedule (2) Hypertensive chronic kidney disease with stage 5 chronic kidney disease or end stage renal disease Current Visit: Yes Status: Acute Plan to address problem: increase UF for further volume/BP control. cont current BP meds (3) Volume overload Current Visit: No Status: Acute Plan to address problem: CTA showed no evidence of PE however it was consistent with CHF/pulmonary edema. increase UF with HD. (4) Type 2 diabetes mellitus with diabetic chronic kidney disease Current Visit: Yes Status: Acute Plan to address problem: DM management as per primary attending Subjective Date of service: 05/03/19 Principal diagnosis: ESRD Interval history: Pt awake, alert, in no acute respiratory distress Objective - Vital Signs Vital signs: Vital Signs - 12hr 05/02/19 05/02/19 05/03/19 23:09 23:10 06:19 Temperature 98.4 F 97.9 F Pulse Rate 75 73 69 Respiratory 20 20 Rate Blood Pressure 177/68 177/68 176/76 O2 Sat by Pulse 98 94 Oximetry 05/03/19 05/03/19 05/03/19 06:46 06:47 07:23 Temperature Pulse Rate 69 Respiratory 18 17 Rate Blood Pressure 176/76 O2 Sat by Pulse Oximetry 05/03/19 05/03/19 10:14 10:15 Temperature Pulse Rate 72 72 Respiratory Rate Blood Pressure 166/62 166/62 O2 Sat by Pulse Oximetry - General Appearance General appearance: well-developed, appears stated age, chronically ill EENT: ATNC, PERRL, mucous membranes moist Neck: no JVD Respiratory: Present: Clear to Ascultation Cardiology: regular, S1S2 Gastrointestinal: normoactive bowel sounds Integumentary: no rash, other (no edema ) Neurologic: no focal deficit, alert and oriented x3, strength 5/5, CN 3-12 intact Psychiatric: mood/affect appropriate, cooperative - Lab 04/30/19 15:27 05/01/19 11:54 Most recent lab results Calcium 9.2 mg/dL (8.4-10.2) 05/01/19 11:54 Medications & Allergies - Medications Allergies/Adverse Reactions: Allergies morphine Allergy (Verified 11/29/18 04:52) Swelling Home Medications: Home Medications Medication Instructions Recorded Confirmed Last Taken Type AtorvaSTATin [Lipitor] 40 mg PO QHS 04/27/17 05/01/19 12/20/18 History Vit B Comp No.3/Folic/C/Biotin 1 each PO DAILY 04/27/17 12/21/18 12/20/18 History [Carisa-Sonya Rx Tablet] traMADol [Ultram 50 MG tab] 50 mg PO Q6H PRN 04/27/17 05/01/19 12/20/18 History Amlodipine Besylate [Norvasc] 10 mg PO QDAY 08/04/18 05/01/19 12/20/18 History Aspirin [Adult Low Dose Aspirin EC] 81 mg PO DAILY 08/04/18 05/01/19 12/20/18 History Insulin Aspart [NovoLOG 100 10 units SUB-Q PRN 08/04/18 05/01/19 12/20/18 History UNITS/ML VIAL] Insulin Detemir [Levemir Flextouch] 30 units SUB-Q QHS 08/04/18 05/01/19 12/20/18 History raNITIdine HCl [Zantac] 150 mg PO QDAY 08/04/18 05/01/19 12/20/18 History oxyCODONE /ACETAMINOPHEN [Percocet 2 tab PO Q6H PRN #30 tablet 12/23/18 Unknown Rx 5/325 mg] Lisinopril [Zestril TAB] 20 mg PO QDAY #30 tablet 12/24/18 Unknown Rx Metoprolol [Lopressor TAB] 100 mg PO BID #60 tablet 12/24/18 Unknown Rx hydrALAZINE [Apresoline TAB] 100 mg PO TID #90 tab 12/24/18 05/01/19 Unknown Rx Carvedilol [Coreg] 25 mg PO BID 05/01/19 05/01/19 Unknown History Vit B Comp No.3/Folic/C/Biotin 1 each PO DAILY 05/01/19 05/01/19 Unknown History [Carisa-Sonya Rx Tablet] Active Medications: Generic Name Dose Route Start Last Admin Trade Name Freq PRN Reason Stop Dose Admin Acetaminophen 650 mg 04/30/19 16:50 Tylenol PO Q4H PRN Pain MILD(1-3)/Fever >100.5/STARKS Amlodipine Besylate 10 mg 05/01/19 10:00 05/03/19 10:14 Norvasc PO 10 mg DAILY KIKI Administration Aspirin 81 mg 05/01/19 10:00 05/03/19 10:16 Halfprin Ec PO 81 mg DAILY KIKI Administration Atorvastatin Calcium 40 mg 04/30/19 22:00 05/02/19 23:07 Lipitor PO 40 mg QHS KIKI Administration Dextrose 50 ml 04/30/19 16:53 D50w (25gm) Syringe IV Q30MIN PRN Hypoglycemia Famotidine 20 mg 05/01/19 10:00 05/03/19 10:16 Pepcid PO 20 mg DAILY KIKI Administration Hydralazine HCl 100 mg 04/30/19 20:00 05/03/19 10:15 Apresoline PO 100 mg TID KIKI Administration Hydralazine HCl 10 mg 04/30/19 17:22 05/03/19 06:47 Apresoline IV 10 mg Q6HR PRN Administration HTN SBP>165 Sodium Chloride 100 mls @ 999 mls/hr 05/02/19 07:41 Nacl 0.9% IV PRESTON PRN Hypotension Insulin Glargine 30 units 05/03/19 22:00 Lantus SUB-Q QHS [facility] Insulin Human Lispro 0 unit 04/30/19 18:00 05/03/19 06:40 Humalog SUB-Q 6 unit Q6HR KIKI Administration Protocol Lisinopril 20 mg 05/01/19 10:00 05/03/19 10:15 Zestril PO 20 mg QDAY KIKI Administration Metoprolol Tartrate 100 mg 04/30/19 22:00 05/03/19 10:15 Lopressor PO 100 mg BID KIKI Administration Multivit/Ca Carb/B Cmplx/FA/Prenat 1 cap 05/01/19 10:00 05/03/19 10:16 Renal Caps PO 1 cap QDAY KIKI Administration Ondansetron HCl 4 mg 04/30/19 16:50 Zofran IV Q8H PRN Nausea And Vomiting Oxycodone/Acetaminophen 2 tab 04/30/19 16:52 05/03/19 06:46 Percocet 5/325 PO 2 tab Q6H PRN Administration Pain, Moderate (4-6) Sodium Chloride 10 ml 04/30/19 22:00 05/03/19 10:16 Sodium Chloride Flush Syringe 10 Ml IV 10 ml BID KIKI Administration Sodium Chloride 10 ml 04/30/19 16:50 Sodium Chloride Flush Syringe 10 Ml IV PRN PRN LINE FLUSH Tramadol HCl 50 mg 04/30/19 16:52 Ultram PO Q6H PRN PAIN
[2019-05-03] MEDS ORDERED: HumaLOG SUB-Q STA (12:04)
--- NOTE | 2019-05-03 14:27 | Discharge Summary ---
Providers - Providers Date of Admission: 04/30/19 16:51 Date of discharge: 05/03/19 Attending physician: EDIE ARRINGTON 04/30/19 16:55 Consult to Physician [CONS] Routine Comment: Consulting Provider: RAHAT CERNA Physician Instructions: Reason For Exam: esrd 04/30/19 20:51 Consult to Dietitian/Nutrition [CONS] Routine Physician Instructions: Reason For Exam: Reason for Consult: Pt needs oral supplement Primary care physician: LONG GRAHAM MD Hospitalization Condition: Fair Disposition: DC-01 TO HOME OR SELFCARE Exam - Constitutional Vitals: Temp Pulse Resp BP Pulse Ox 98.3 F 72 18 178/74 95 05/03/19 12:00 05/03/19 12:00 05/03/19 12:00 05/03/19 12:00 05/03/19 12:00 Plan Activity: advance as tolerated Diet: low fat, low cholesterol, low salt, diabetic Plan of Treatment: 1.Follow up with PCP or oLng kurtz in 1 week. 2.Continue routine hemoduialysis as scheduled Follow up with: LONG YAÑEZ MD [Primary Care Provider] - 7 Days
[2019-05-03] MEDS ORDERED: CATAPRES PO SCH (15:00)
[2019-05-03] MEDS ORDERED: MIRALAX 3350 PO ONE (15:33)
[2019-05-03 17:32] VITALS: BP 166/71
[2019-05-03] MEDS ORDERED: INSULIN DETEMIR 30 UNIT SUB-Q SCH (22:00)
[2019-05-03] MEDS ORDERED: LANTUS SUB-Q SCH (22:00)
== END 2019-05-03 19:06 | disposition home or self-care (01) | DRG 189 ==
LOC: ED 15:05 → 3A 16:51
PROVIDERS: ADMIT Internal Medicine; ATTEND Internal Medicine
PROC: 5A1D70Z Performance of Urinary Filtration, Intermittent, Less than 6 Hours Per Day (ICD-10-PCS; principal; 2019-05-01)
PROC: 5A1D70Z Performance of Urinary Filtration, Intermittent, Less than 6 Hours Per Day (ICD-10-PCS; 2019-05-02)
DX: J96.01 Acute respiratory failure with hypoxia (principal); N18.6 End stage renal disease; E43 Unspecified severe protein-calorie malnutrition; C25.9 Malignant neoplasm of pancreas, unspecified; I12.0 Hypertensive chronic kidney disease with stage 5 chronic kidney disease or end stage renal disease; Z99.2 Dependence on renal dialysis; I16.0 Hypertensive urgency; E87.70 Fluid overload, unspecified; E11.22 Type 2 diabetes mellitus with diabetic chronic kidney disease; E78.5 Hyperlipidemia, unspecified; J44.9 Chronic obstructive pulmonary disease, unspecified; D64.9 Anemia, unspecified; Z68.21 Body mass index [BMI] 21.0-21.9, adult; Z79.4 Long term (current) use of insulin
CPT/HCPCS: 36415; 71046; 71275; 80053; 80074; 82962; 85025; 85379; 87116; 94760; 96374; 99406; G0378; A9270-GY; J0360; J1815; J7030; Q9967

== ENCOUNTER 2019-05-31 13:52 | Inpatient (IN) | payer MEDICARE ==
--- NOTE | 2019-05-31 14:14 | Event Note ---
ED Screening Note Date of service: 05/31/19 Time: 14:10 ED Screening Note: 63 y o male with PMH of ESRD, HEP C and pancreatic cancer was sent by pcp for persistent intermittent cough with sob last dialyzed yesterday This initial assessment/diagnostic orders/clinical plan/treatment(s) is/are subj ect to change based on patients health status, clinical progression and re- assessment by fellow clinical providers in the ED. Further treatment and workup at subsequent clinical providers discretion. Patient/guardian urged not to elope from the ED as their condition may be serious if not clinically assessed and managed. Initial orders include: cbc,cmp,cxr
--- NOTE | 2019-05-31 14:42 | XRay Report ---
CHEST 2 VIEWS INDICATION: Dyspnea. COMPARISON: Chest x-ray from 04/30/2019 FINDINGS: Support devices: Stable satisfactory device positioning. Heart: Within normal limits. Lungs/pleura: There is mild interstitial edema with no consolidation. There is a trace right-sided pl eural effusion. No pneumothorax. Additional findings: None. IMPRESSION: 1. Mild interstitial edema. Signer Name: Scott Claire MD Signed: 05/31/2019 2:38 PM Workstation Name: [id number]
[2019-05-31 15:22] LABS: Hematocrit 30.7 % (35.5-45.6); Hemoglobin 9.9 gm/dl (11.8-15.2); Mean Corpuscular HGB Conc 32 % (32-34); Mean Corpuscular Volume 97 fl (84-94); Platelet Count 110 K/mm3 (140-440); Red Blood Count 3.17 M/mm3 (3.65-5.03); Red Cell Distribution Width 16.3 % (13.2-15.2)
[2019-05-31 15:39] LABS: BUN/Creatinine Ratio TNR; Blood Urea Nitrogen TNR mg/dL (9-20)
[2019-05-31 15:40] LABS: Alanine Aminotransferase TNR units/L (7-56); Albumin TNR g/dL (3.9-5); Calcium TNR mg/dL (8.4-10.2); Hemolysis Index TNR
--- NOTE | 2019-05-31 16:06 | Emergency Department Report ---
ED Shortness of Breath HPI - General Chief Complaint: Dyspnea/Respdistress Stated Complaint: SOB Time Seen by Provider: 05/31/19 15:58 Source: patient Mode of arrival: Wheelchair Limitations: No Limitations - History of Present Illness Initial Comments: 63-year-old male with a past medical history end-stage renal disease on dialysis Wednesday, , and Wednesday, hypertension, diabetes, COPD, hepatitis C, pancreatic cancer on chemotherapy twice a month presents to the hospital complains of cough times one week. Patient complains of intermittent wheezing, chronic orthopnea, and PND. No reports of fever or chest pain. Patient had dialysis yesterday and states he started to feel short of breath last night. Last chemotherapy was a week ago 05/24. Product Development Ecologist: Dr. Ty - Related Data Home Medications Medication Instructions Recorded Confirmed Last Taken AtorvaSTATin [Lipitor] 40 mg PO QHS 04/27/17 05/01/19 12/20/18 traMADoL [Ultram 50 MG tab] 50 mg PO Q6H PRN 04/27/17 05/01/19 12/20/18 Amlodipine Besylate [Norvasc] 10 mg PO QDAY 08/04/18 05/01/19 12/20/18 Aspirin [Adult Low Dose Aspirin EC] 81 mg PO DAILY 08/04/18 05/01/19 12/20/18 Insulin Aspart (Nf) [NovoLOG 100 10 units SUB-Q PRN 08/04/18 05/01/19 12/20/18 UNITS/ML VIAL] Insulin Detemir (Nf) [Levemir 30 units SUB-Q QHS 08/04/18 05/01/19 12/20/18 Flextouch (Nf)] raNITIdine HCl [Zantac] 150 mg PO QDAY 08/04/18 05/01/19 12/20/18 Vit B Comp No.3/Folic/C/Biotin 1 each PO DAILY 05/01/19 05/01/19 Unknown [Carisa-Sonya Rx Tablet] carvediloL [Coreg] 25 mg PO BID 05/01/19 05/01/19 Unknown Previous Rx's Medication Instructions Recorded Last Taken Type oxyCODONE /ACETAMINOPHEN [Percocet 2 tab PO Q6H PRN #30 tablet 12/23/18 04/28/19 Rx 5/325 mg] hydrALAZINE [Apresoline TAB] 100 mg PO TID #90 tab 12/24/18 Unknown Rx cloNIDine [Catapres] 0.1 mg PO BID #60 tablet 05/03/19 Unknown Rx Allergies Allergy/AdvReac Type Severity Reaction Status Date / Time morphine Allergy Swelling Verified 11/29/18 04:52 ED Review of Systems ROS: Stated complaint: SOB Other details as noted in HPI Comment: All other systems reviewed and negative ED Past Medical Hx - Past Medical History Previous Medical History?: Yes Hx Hypertension: Yes Hx Congestive Heart Failure: No Hx Diabetes: Yes (Type 2) Hx Liver Disease: Yes (HEP C) Hx Renal Disease: Yes Hx Seizures: No Hx Kidney Stones: No Hx Asthma: No Hx COPD: Yes Hx HIV: No Additional medical history: Dialysis T Sat. TAKING CHEMO. pancreatic cancer - Surgical History Past Surgical History?: Yes Additional Surgical History: graft to right leg - Social History Smoking Status: Never Smoker Substance Use Type: None - Medications Home Medications: Home Medications Medication Instructions Recorded Confirmed Last Taken Type AtorvaSTATin [Lipitor] 40 mg PO QHS 04/27/17 05/01/19 12/20/18 History traMADoL [Ultram 50 MG tab] 50 mg PO Q6H PRN 04/27/17 05/01/19 12/20/18 History Amlodipine Besylate [Norvasc] 10 mg PO QDAY 08/04/18 05/01/19 12/20/18 History Aspirin [Adult Low Dose Aspirin EC] 81 mg PO DAILY 08/04/18 05/01/19 12/20/18 History Insulin Aspart (Nf) [NovoLOG 100 10 units SUB-Q PRN 08/04/18 05/01/19 12/20/18 History UNITS/ML VIAL] Insulin Detemir (Nf) [Levemir 30 units SUB-Q QHS 08/04/18 05/01/19 12/20/18 History Flextouch (Nf)] raNITIdine HCl [Zantac] 150 mg PO QDAY 08/04/18 05/01/19 12/20/18 History oxyCODONE /ACETAMINOPHEN [Percocet 2 tab PO Q6H PRN #30 tablet 12/23/18 05/03/19 04/28/19 Rx 5/325 mg] hydrALAZINE [Apresoline TAB] 100 mg PO TID #90 tab 12/24/18 05/01/19 Unknown Rx Vit B Comp No.3/Folic/C/Biotin 1 each PO DAILY 05/01/19 05/01/19 Unknown History [Carisa-Sonya Rx Tablet] carvediloL [Coreg] 25 mg PO BID 05/01/19 05/01/19 Unknown History cloNIDine [Catapres] 0.1 mg PO BID #60 tablet 05/03/19 Unknown Rx ED Physical Exam - General Limitations: No Limitations - Other Other exam information: General: No acute distress Head: Atraumatic Eyes: normal appearance ENT: Moist mucous membranes Neck: Normal appearance, no midline tenderness Chest: Clear to auscultation bilaterally CV: Regular rate and rhythm Abdomen: Soft, normal bowel sounds, nontender, nondistended, no rebound or guarding Back: Normal inspection Extremity: Bilateral lower extremity pitting edema. No calf tenderness Neuro: Alert O x 3, no facial asymmetry, speech clear, no gross motor sensory deficit Psych: Appropriate behavior Skin: No rash ED Course Vital Signs 05/31/19 05/31/19 05/31/19 14:04 16:17 17:25 Temperature 97.8 F 97.6 F Pulse Rate 82 75 75 Respiratory 18 18 Rate Blood Pressure 219/125 215/93 Blood Pressure 202/102 [Left] O2 Sat by Pulse 97 95 Oximetry - Consultations Consultation #1: 05/31/19 17:09 case d/w nephrology Dr Ty, will preform dialysis tonight and can obtain repeat labs prior to dialysis. ED Medical Decision Making - Lab Data Result diagrams: 05/31/19 14:49 05/31/19 Unknown Lab Results 05/31/19 05/31/19 05/31/19 Range/Units 14:49 14:49 Unknown WBC 1.3 L* (4.5-11.0) K/mm3 RBC 3.17 L (3.65-5.03) M/mm3 Hgb 9.9 L (11.8-15.2) gm/dl Hct 30.7 L (35.5-45.6) % MCV 97 H (84-94) fl MCH 31 (28-32) pg MCHC 32 (32-34) % RDW 16.3 H (13.2-15.2) % Plt Count 110 L (140-440) K/mm3 Add Manual Diff Complete Total Counted 100 Seg Neuts % (Manual) 52.0 (40.0-70.0) % Band Neutrophils % 0 % Lymphocytes % (Manual) 38.0 H (13.4-35.0) % Reactive Lymphs % (Man) 0 % Monocytes % (Manual) 8.0 H (0.0-7.3) % Eosinophils % (Manual) 1.0 (0.0-4.3) % Basophils % (Manual) 1.0 (0.0-1.8) % Metamyelocytes % 0 % Myelocytes % 0 % Promyelocytes % 0 % Blast Cells % 0 % Nucleated RBC % Not Reportable Seg Neutrophils # Man 0.7 L (1.8-7.7) K/mm3 Band Neutrophils # 0.0 K/mm3 Lymphocytes # (Manual) 0.5 L (1.2-5.4) K/mm3 Abs React Lymphs (Man) 0.0 K/mm3 Monocytes # (Manual) 0.1 (0.0-0.8) K/mm3 Eosinophils # (Manual) 0.0 (0.0-0.4) K/mm3 Basophils # (Manual) 0.0 (0.0-0.1) K/mm3 Metamyelocytes # 0.0 K/mm3 Myelocytes # 0.0 K/mm3 Promyelocytes # 0.0 K/mm3 Blast Cells # 0.0 K/mm3 WBC Morphology Not Reportable Hypersegmented Neuts Not Reportable Hyposegmented Neuts Not Reportable Hypogranular Neuts Not Reportable Smudge Cells Not Reportable Toxic Granulation Not Reportable Toxic Vacuolation Not Reportable Dohle Bodies Not Reportable Pelger-Huet Anomaly Not Reportable Hakeem Rods Not Reportable Platelet Estimate Not Reportable Clumped Platelets Not Reportable Plt Clumps, EDTA Not Reportable Large Platelets Not Reportable Giant Platelets Not Reportable Platelet Satelliting Not Reportable Plt Morphology Comment Not Reportable RBC Morphology Normal Dimorphic RBCs Not Reportable Polychromasia Not Reportable Hypochromasia Not Reportable Poikilocytosis Not Reportable Anisocytosis Not Reportable Microcytosis Not Reportable Macrocytosis Not Reportable Spherocytes Not Reportable Pappenheimer Bodies Not Reportable Sickle Cells Not Reportable Target Cells Not Reportable Tear Drop Cells Not Reportable Ovalocytes Not Reportable Helmet Cells Not Reportable [place] Bodies Not Reportable Marydel Rings Not Reportable [place] Cells Not Reportable Bite Cells Not Reportable Crenated Cell Not Reportable Elliptocytes Not Reportable Acanthocytes (Spur) Not Reportable Rouleaux Not Reportable Hemoglobin C Crystals Not Reportable Schistocytes Not Reportable Malaria parasites Not Reportable Rich Bodies Not Reportable Hem Pathologist Commnt No Sodium TNR 130 L Potassium TNR TNR Chloride TNR 91.4 L Carbon Dioxide TNR 19 L Anion Gap TNR 26 BUN TNR 38 H Creatinine TNR 5.9 H Estimated GFR TNR 12 BUN/Creatinine Ratio TNR 6 Glucose TNR 405 H Calcium TNR 9.5 Total Bilirubin TNR 0.90 AST TNR 137 H ALT TNR 116 H Alkaline Phosphatase TNR 118 Total Protein TNR 8.7 H Albumin TNR 3.4 L Albumin/Globulin Ratio TNR 0.6 - EKG Data -: EKG Interpreted by Mt EKG shows normal: sinus rhythm, ST-T waves (no stemi, no peak t waves) - Radiology Data Radiology results: report reviewed CHEST 2 VIEWS INDICATION: Dyspnea. COMPARISON: Chest x-ray from 04/30/2019 FINDINGS: Support devices: Stable satisfactory device positioning. Heart: Within normal limits. Lungs/pleura: There is mild interstitial edema with no consolid ation. There is a trace right-sided pleural effusion. No pneumothorax. Additional findings: None. IMPRESSION: 1. Mild interstitial edema. 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 Patient received insulin for hyperglycemia and will receive albuterol 10mg, sodium bicarb and calcium gluconate until dialysis can be done. No peak t waves on ekg elevated glucose and bp likely due to med noncompliance. NTG paste ordered pt does not make urine no infiltrate on cxr dilaudid IV given for chronic epigastric pain secondary to pancreatic cancer. Patient takes oxycodone chronically at home. hosptialist informed for admission - Differential Diagnosis pneumonia, bronchitis, CHF, viral syndrome, fluid overload, hypertensive em Critical Care Time: No Critical care attestation.: If time is entered above; I have spent that time in minutes in the direct care of this critically ill patient, excluding procedure time. ED Disposition Clinical Impression: Pulmonary edema, ESRD (end stage renal disease), Hyperkalemia, Hyperglycemia, Uncontrolled hypertension, Pancytopenia, Pancreatic cancer Disposition: DC-09 OP ADMIT IP TO THIS HOSP Is pt being admited?: Yes Condition: Stable Instructions: Hypertension (ED) Referrals: PRIMARY CARE, [Primary Care Provider] - 3-5 Days Time of Disposition: 17:26 (Dr Wise/hosp)
[2019-05-31 16:34] LABS: RBC Morphology Normal; Total Cells Counted 100
[2019-05-31] MEDS ORDERED: ONDANSETRON 4 MG/2 ML INJ IV ONE (16:43)
[2019-05-31] MEDS ORDERED: HYDROmorphone 1 MG/1 ML INJ IV ONE (16:43)
[2019-05-31] MEDS ORDERED: NITROGLYCERIN 2% OINT 1 GM TP ONE (16:49)
[2019-05-31 16:57] LABS: Albumin 3.4 g/dL (3.9-5); BUN/Creatinine Ratio 6; Blood Urea Nitrogen 38 mg/dL (9-20); Calcium 9.5 mg/dL (8.4-10.2); Hemolysis Index 204
[2019-05-31 17:05] LABS: Alanine Aminotransferase 116 units/L (7-56)
[2019-05-31] MEDS ORDERED: SODIUM CHLORIDE 0.9% 100 ML IV PRN (17:22)
[2019-05-31] MEDS ORDERED: INSULIN REGULAR, HUMAN 100 UNITS/1 ML IV ONE (17:24)
[2019-05-31] MEDS ORDERED: ALBUTEROL 2.5 MG/3 ML NEBU IH ONE (17:36)
[2019-05-31] MEDS ORDERED: SODIUM BICARB 8.4% 50 MEQ/50 ML SYRINGE IV ONE (17:38)
[2019-05-31] MEDS ORDERED: CALCIUM GLUCONATE 1,000 MG in SODIUM CHLORIDE 0.9% 100 ML IV ONE (18:00)
--- NOTE | 2019-05-31 18:58 | History and Physical Report ---
History of Present Illness Date of examination: 05/31/19 Date of admission: 05/31/19 17:27 Chief complaint: Short of breath with cough and wheezing History of present illness: 63-year-old male with a past medical history end-stage renal disease on dialysis Wednesday, , and Wednesday, hypertension, diabetes, COPD, hepatitis C, pancreatic cancer on chemotherapy twice a month presents to the hospital complains of cough and SOB. Patient complains of intermittent wheezing, chronic orthopnea, and PND. No reports of fever or chest pain. Patient had dialysis and states he started to feel short of breath last night. Last chemotherapy was a week ago 05/24. Director Network Development: Dr. Ty. CXR showed pulmonary edema. Nephrology consulted from ER. He is being admitted for further evaluation and Mx. Past medical history: Past Medical History: ESRD on HD(T,R,Sa), Pancreatic Cancer, HTN, COPD Past Surgical History: Other (right leg surgery, Dialysis access) Social history: single, smoking. denies: alcohol abuse, prescription drug abuse Family history: hypertension Review of System: Constitutional: no fever, no chills, no weight loss Ears, eyes, nose, mouth and throat: no nasal congestion, no nasal discharge, no sinus pressure, no vision change, no red eye. Neck: No neck pain or rigidity. Cardiovascular: No chest pain, + orthopnea, no palpitations, no leg swelling Respiratory: +shortness of breath,+ cough, + congestion, + wheezing Gastrointestinal: no abdominal pain, no nausea, no vomiting Genitourinary : no dysuria, no hematuria Musculoskeletal: no joint swelling or muscle ache Integumentary: no rash, no pruritis Neurological: no parathesias, no numbness, no tingling Endocrine: no cold or heat intolerance, no polyuria or polydipsia Hematologic/Lymphatic: no easy bruising, no easy bleeding, no gland swelling Allergic/Immunologic: no urticaria, no angioedema. Medications and Allergies Allergies Allergy/AdvReac Type Severity Reaction Status Date / Time morphine Allergy Swelling Verified 11/29/18 04:52 Home Medications Medication Instructions Recorded Confirmed Last Taken Type AtorvaSTATin [Lipitor] 40 mg PO QHS 04/27/17 05/01/19 12/20/18 History traMADoL [Ultram 50 MG tab] 50 mg PO Q6H PRN 04/27/17 05/01/19 12/20/18 History Amlodipine Besylate [Norvasc] 10 mg PO QDAY 08/04/18 05/01/19 12/20/18 History Aspirin [Adult Low Dose Aspirin EC] 81 mg PO DAILY 08/04/18 05/01/19 12/20/18 History Insulin Aspart (Nf) [NovoLOG 100 10 units SUB-Q PRN 08/04/18 05/01/19 12/20/18 History UNITS/ML VIAL] Insulin Detemir (Nf) [Levemir 30 units SUB-Q QHS 08/04/18 05/01/19 12/20/18 History Flextouch (Nf)] raNITIdine HCl [Zantac] 150 mg PO QDAY 08/04/18 05/01/19 12/20/18 History oxyCODONE /ACETAMINOPHEN [Percocet 2 tab PO Q6H PRN #30 tablet 12/23/18 05/03/19 04/28/19 Rx 5/325 mg] hydrALAZINE [Apresoline TAB] 100 mg PO TID #90 tab 12/24/18 05/01/19 Unknown Rx Vit B Comp No.3/Folic/C/Biotin 1 each PO DAILY 05/01/19 05/01/19 Unknown History [Carisa-Sonya Rx Tablet] carvediloL [Coreg] 25 mg PO BID 05/01/19 05/01/19 Unknown History cloNIDine [Catapres] 0.1 mg PO BID #60 tablet 05/03/19 Unknown Rx Active Meds: Active Medications Epoetin True (Procrit) 10,000 unit IV PRESTON PRN PRN Reason: hemodialysis Sodium Chloride (Nacl 0.9%) 100 mls @ 999 mls/hr IV PRESTON PRN PRN Reason: Hypotension Exam - Physical Exam Narrative exam: GENERAL: elderly AAM lying on bed appeared to be in mild discomfort. HEENT: Normocephalic. Atraumatic. No conjunctival congestion or icterus. Patient has moist mucous membranes. NECK: Supple. Trachea midline. CHEST/LUNGS: BS auscultated bilaterally, breathing mild labored. + wheezes and crackles b/l HEART/CARDIOVASCULAR: Regular in rate and rhythm. S1 and S2 positive. ABDOMEN: Abdomen is soft, nontender. Patient has normal bowel sounds. SKIN: There is no rash. Warm and dry. NEURO: No focal motor deficit. Follows command. MUSCULOSKELETAL: No joint effusion or tenderness. EXTRIMITY: No edema, no cyanosis or clubbing. PSYCH: Cooperative. - Constitutional Vitals: Temp Pulse Resp BP Pulse Ox 97.8 F 78 18 205/95 96 05/31/19 18:15 05/31/19 18:15 05/31/19 18:15 05/31/19 18:15 05/31/19 18:07 Results - Labs CBC & Chem 7: 05/31/19 14:49 05/31/19 Unknown Labs: Abnormal lab results 05/31/19 05/31/19 Range/Units 14:49 Unknown WBC 1.3 L* (4.5-11.0) K/mm3 RBC 3.17 L (3.65-5.03) M/mm3 Hgb 9.9 L (11.8-15.2) gm/dl Hct 30.7 L (35.5-45.6) % MCV 97 H (84-94) fl RDW 16.3 H (13.2-15.2) % Plt Count 110 L (140-440) K/mm3 Lymphocytes % (Manual) 38.0 H (13.4-35.0) % Monocytes % (Manual) 8.0 H (0.0-7.3) % Seg Neutrophils # Man 0.7 L (1.8-7.7) K/mm3 Lymphocytes # (Manual) 0.5 L (1.2-5.4) K/mm3 Sodium 130 L (137-145) mmol/L Chloride 91.4 L (98-107) mmol/L Carbon Dioxide 19 L (22-30) mmol/L BUN 38 H (9-20) mg/dL Creatinine 5.9 H (0.8-1.5) mg/dL Glucose 405 H (75-100) mg/dL AST 137 H (5-40) units/L ALT 116 H (7-56) units/L Total Protein 8.7 H (6.3-8.2) g/dL Albumin 3.4 L (3.9-5) g/dL Assessment and Plan End stage renal disease with volume overload COPD with acute exacerbation Diabetes mellitus type 2 Hypertension, accelerated Pancytopenia likely due to malgnancy Pancreatic cancer on chemotherapy Severe protein calorie malnutrition -- We'll admit the patient to telemetry - Will provide scheduled nebulizer breathing treatment and as needed - Provide supplemental oxygen to keep oxygen saturation above 92% - Consider to consult pulmonary if no improvement in next 24 hours - may need to assess for home O2 before discharge - Consult nephrology to resume dialysis - We will resume home medications, monitor BP - nutrition consult - Provide DVT prophylaxis with heparin. Radiological data: Chest x-ray: 1. Mild interstitial edema.
[2019-05-31 19:00] LABS: Hepatitis B Surface Antigen Non-Reactive (Negative); Hepatitis C Virus Antibody Reactive (NonReactive)
[2019-05-31] MEDS ORDERED: amLODIPine 5 MG TAB PO SCH (19:00)
--- NOTE | 2019-05-31 20:07 | Consultation ---
History of Present Illness - Reason for Consult Consult date: 06/01/19 end stage renal disease Requesting physician: ALEXANDER CASTRO - History of Present Illness 63-year-old male who is well-known to me with a history of diabetes mellitus, hypertension, complicated by end-stage renal disease on hemodialysis on a Wednesday, and Wednesday schedule. Patient also has pancreatic cancer diagnosed earlier this year and is getting chemotherapy. Patient went for his usual dialysis on Wednesday but later same night he became short of breath. This woke him up from his sleep. He had orthopnea and paroxysmal nocturnal dyspnea. He admits to cough which is nonproductive. He admits to chills but no fever. He admits to nausea and vomiting. He's been fatigued and appetite is poor. He last received chemotherapy about a week ago. He has been fairly adherent to sod ium and fluid restriction. He believes he may have lost weight and his dry weight has not been adjusted Past History Past Medical History: anemia, cancer (pancreatic), COPD, diabetes, ESRD, hypertension Past Surgical History: Other (right femoral AV graft placement, percutaneous transluminal angioplasty to lower extremity vasculature, failed Upper extremity AV accesses) Social history: smoking (Scot down a lot to just a few cigarettes a day.), other (his from the [place] area where he worked for the public [email or web address]. His in [place] for 20 years worked in [employer] and [employer]. Currently disabled and lives with his son.). denies: alcohol abuse (drinking alcohol years ago.), prescription drug abuse, IV drug use Family history: cancer (Sister of brain cancer and breast cancer.), diabetes (father of complications of diabetes mellitus.), hypertension Medications and Allergies Allergies Allergy/AdvReac Type Severity Reaction Status Date / Time morphine Allergy Swelling Verified 11/29/18 04:52 Home Medications Medication Instructions Recorded Confirmed Last Taken Type AtorvaSTATin [Lipitor] 40 mg PO QHS 04/27/17 05/01/19 12/20/18 History traMADoL [Ultram 50 MG tab] 50 mg PO Q6H PRN 04/27/17 05/01/19 12/20/18 History Amlodipine Besylate [Norvasc] 10 mg PO QDAY 08/04/18 05/01/19 12/20/18 History Aspirin [Adult Low Dose Aspirin EC] 81 mg PO DAILY 08/04/18 05/01/19 12/20/18 History Insulin Aspart (Nf) [NovoLOG 100 10 units SUB-Q PRN 08/04/18 05/01/19 12/20/18 History UNITS/ML VIAL] Insulin Detemir (Nf) [Levemir 30 units SUB-Q QHS 08/04/18 05/01/19 12/20/18 History Flextouch (Nf)] raNITIdine HCl [Zantac] 150 mg PO QDAY 08/04/18 05/01/19 12/20/18 History oxyCODONE /ACETAMINOPHEN [Percocet 2 tab PO Q6H PRN #30 tablet 12/23/18 05/03/19 04/28/19 Rx 5/325 mg] hydrALAZINE [Apresoline TAB] 100 mg PO TID #90 tab 12/24/18 05/01/19 Unknown Rx Vit B Comp No.3/Folic/C/Biotin 1 each PO DAILY 05/01/19 05/01/19 Unknown History [Carisa-Sonya Rx Tablet] carvediloL [Coreg] 25 mg PO BID 05/01/19 05/01/19 Unknown History cloNIDine [Catapres] 0.1 mg PO BID #60 tablet 05/03/19 Unknown Rx Active Meds: Active Medications Amlodipine Besylate (Amlodipine) 10 mg PO DAILY [facility] Aspirin (Halfprin Ec) 81 mg PO DAILY [facility] Atorvastatin Calcium (Lipitor) 40 mg PO QHS [facility] Carvedilol (Coreg) 25 mg PO BID [facility] Clonidine HCl (Catapres) 0.1 mg PO BID [facility] Epoetin True (Procrit) 10,000 unit IV PRESTON PRN PRN Reason: hemodialysis Heparin Sodium (Porcine) (Heparin) 5,000 unit SUB-Q Q8HR [facility] Hydralazine HCl (Apresoline) 100 mg PO TID [facility] Sodium Chloride (Nacl 0.9%) 100 mls @ 999 mls/hr IV PRESTON PRN PRN Reason: Hypotension Insulin Glargine (Lantus) 30 units SUB-Q QHS [facility] Insulin Human Lispro (Humalog) 10 unit SUB-Q AC [facility] Insulin Human Regular (Humulin R) 0 units SUB-Q ACHS [facility]; Protocol Multivit/Ca Carb/B Cmplx/FA/Prenat (Renal Caps) 1 cap PO QDAY [facility] Oxycodone/Acetaminophen (Percocet 5/325) 2 tab PO Q6H PRN PRN Reason: Pain, Moderate (4-6) Review of Systems All systems: negative (Constitutional: no fever but still chills. Appetite is poor with easy fatigability. No weight loss. HEENT: No sore throat butinus drainage no hearing or vision impairment . Cardiovascular: No chest pain, shortness of breath, palpitations, lower extremity swelling or dizziness. Respiratory: No cough, sputum, shortness of breath, hemoptysis or wheezing. Gastrointestinal: No nausea, vomiting, diarrhea, abdominal pain, hematemesis or melena. Genitourinary: No frequency urgency dysuria or hematuria. hematologic: No abnormal bleeding or bruising. Integumentary: no pruritus or rash. Neurological: No headache no focal weakness or numbness, no syncope or seizures. Musculoskeletal: No joint pains no stiffness. Psychiatry: no anxiety or depression) Exam - Vital Signs Vital signs: Vital Signs Temp Pulse Resp BP Pulse Ox 97.8 F 82 18 219/125 97 05/31/19 14:04 05/31/19 14:04 05/31/19 14:04 05/31/19 14:04 05/31/19 14:04 - Physical Exam Narrative exam: Middle-aged -Macedonian female lying in bed in mild acute distress HEENT: NCAT, pink oral mucous membrane Neck: Supple, no venous distention CVS: S1S2 RRR with no murmur, rub or gallop Chest: Mildly dyspneic, with few rales and wheezes. Breath sounds diminished Abdomen: Protuberant, soft, nontender, no organomegaly, bowel sounds are present Extremities: trace edema Neuro: Awake, alert no focal deficits Results - Lab Results 05/31/19 14:49 05/31/19 Unknown Most recent lab results Calcium 9.5 mg/dL (8.4-10.2) 05/31/19 Unknown Assessment and Plan - Patient Problems (1) Pulmonary edema Current Visit: Yes Status: Acute Plan to address problem: Acute pulmonary edema a secondary to fluid overload secondary to end-stage renal disease (2) Pancreatic cancer Current Visit: Yes Status: Chronic Qualifiers: Plan to address problem: Continue chemotherapy at [place]. Follow-up with oncologist (3) Acute respiratory failure with hypoxia Current Visit: No Status: Acute Plan to address problem: Hemodialysis again tomorrow. (4) End-stage renal disease needing dialysis Current Visit: No Status: Acute Plan to address problem: We'll dialyze again tomorrow and reevaluate
[2019-05-31] MEDS ORDERED: INSULIN DETEMIR 30 UNIT SUB-Q SCH (22:00)
[2019-05-31] MEDS: cloNIDine 0.1 MG TAB PO SCH (23:24)
[2019-05-31] MEDS: carvediloL 25 MG TAB PO SCH (23:26)
[2019-05-31] MEDS: oxyCODONE /ACETAMINOPHEN 5-325MG TAB PO PRN (23:26)
[2019-05-31] MEDS: amLODIPine 10 MG TAB PO SCH (23:39)
[2019-05-31] MEDS: hydrALAZINE 100 MG TAB PO SCH (23:40)
[2019-06-01] MEDS: INSULIN GLARGINE 100 UNITS/ML SUB-Q SCH ×2 (01:09→21:18)
[2019-06-01] MEDS: INSULIN REGULAR, HUMAN 100 UNITS/1 ML SUB-Q SCH ×5 (01:10→21:18)
[2019-06-01] MEDS: oxyCODONE /ACETAMINOPHEN 5-325MG TAB PO PRN ×3 (05:15→16:06)
[2019-06-01] MEDS: HEPARIN 5,000 UNIT/1 ML VIAL SUB-Q SCH ×4 (05:17→21:18)
[2019-06-01] MEDS ORDERED: NON-FORMULARY EACH (Insulin Aspart (Nf) 10 UNITS) SUB-Q SCH (07:30)
[2019-06-01] MEDS: INSULIN LISPRO 100 UNIT/ML SUB-Q SCH ×3 (07:30→16:29)
[2019-06-01] MEDS ORDERED: [UNRECOGNIZED DRUG - REMARK] PO SCH (10:00)
[2019-06-01] MEDS ORDERED: SODIUM CHLORIDE 0.9% 100 ML IV PRN (10:30)
[2019-06-01] MEDS ORDERED: SODIUM CHLORIDE*PRIMING MACHINE ONLY FOR DIALYSIS MC ONE (11:32)
[2019-06-01] MEDS: FOLIC ACID/VIT B COMP W-C 1 MG (RENAL CAPS) PO SCH (16:00)
[2019-06-01] MEDS: ASPIRIN EC 81 MG TAB PO SCH (16:00)
[2019-06-01] MEDS: amLODIPine 10 MG TAB PO SCH (16:04)
[2019-06-01] MEDS: hydrALAZINE 100 MG TAB PO SCH ×3 (16:05→21:17)
[2019-06-01] MEDS: cloNIDine 0.1 MG TAB PO SCH ×2 (16:07→21:17)
[2019-06-01] MEDS: carvediloL 25 MG TAB PO SCH ×2 (16:09→21:17)
--- NOTE | 2019-06-01 21:47 | Progress Note ---
Assessment and Plan - Patient Problems (1) Pulmonary edema Current Visit: Yes Status: Acute Plan to address problem: Acute pulmonary edema secondary to fluid overload secondary to end-stage renal disease. Improving with dialysis (2) Pancreatic cancer Current Visit: Yes Status: Chronic Qualifiers: Plan to address problem: Continue chemotherapy at [place]. Follow-up with oncologist (3) Acute respiratory failure with hypoxia Current Visit: No Status: Acute Plan to address problem: Hemodialysis again tomorrow. (4) End-stage renal disease needing dialysis Current Visit: No Status: Acute Plan to address problem: We'll dialyze again tomorrow and reevaluate Subjective Date of service: 06/01/19 Principal diagnosis: End stage Renal disease with fluid overload Interval history: Patient seen lying in bed. She has no complaints. Feels much better Objective - Exam Narrative Exam: Middle-aged -Gibraltarian female lying in bed in mild acute distress HEENT: NCAT, pink oral mucous membrane Neck: Supple, no venous distention CVS: S1S2 RRR with no murmur, rub or gallop Chest: Mildly dyspneic, with Breath sounds diminished Abdomen: Protuberant, soft, nontender, no organomegaly, bowel sounds are present Extremities: trace edema Neuro: Awake, alert no focal deficits - Vital Signs Vital signs: Vital Signs - 12hr 06/01/19 06/01/19 06/01/19 10:00 10:32 11:05 Temperature 97.8 F Pulse Rate 68 67 Respiratory 20 20 18 Rate Respiratory 20 Rate [ GENERALIZED] Blood Pressure 177/88 O2 Sat by Pulse 100 Oximetry 06/01/19 06/01/19 06/01/19 11:15 11:30 11:45 Temperature Pulse Rate 64 65 64 Respiratory Rate Respiratory Rate [ GENERALIZED] Blood Pressure 157/73 159/78 147/70 O2 Sat by Pulse Oximetry 06/01/19 06/01/19 06/01/19 12:00 12:15 12:30 Temperature Pulse Rate 62 59 L 62 Respiratory Rate Respiratory Rate [ GENERALIZED] Blood Pressure 143/68 145/68 131/67 O2 Sat by Pulse Oximetry 06/01/19 06/01/19 06/01/19 12:45 13:00 13:15 Temperature Pulse Rate 63 59 L 60 Respiratory Rate Respiratory Rate [ GENERALIZED] Blood Pressure 138/71 148/72 134/68 O2 Sat by Pulse Oximetry 06/01/19 06/01/19 06/01/19 13:30 13:45 14:00 Temperature Pulse Rate 60 61 63 Respiratory Rate Respiratory Rate [ GENERALIZED] Blood Pressure 139/65 173/72 156/78 O2 Sat by Pulse Oximetry 06/01/19 06/01/19 06/01/19 14:40 16:03 16:04 Temperature 97.6 F 97.9 F Pulse Rate 63 69 73 Respiratory 18 20 Rate Respiratory Rate [ GENERALIZED] Blood Pressure 156/75 145/46 145/46 O2 Sat by Pulse 97 Oximetry 06/01/19 06/01/19 06/01/19 16:06 16:07 16:09 Temperature Pulse Rate 73 73 Respiratory 20 Rate Respiratory Rate [ GENERALIZED] Blood Pressure 145/46 145/46 O2 Sat by Pulse Oximetry 06/01/19 20:23 Temperature 98.5 F Pulse Rate 67 Respiratory 20 Rate Respiratory Rate [ GENERALIZED] Blood Pressure 158/65 O2 Sat by Pulse 100 Oximetry - Lab 05/31/19 14:49 05/31/19 Unknown Most recent lab results Calcium 9.5 mg/dL (8.4-10.2) 05/31/19 Unknown Medications & Allergies - Medications Allergies/Adverse Reactions: Allergies morphine Allergy (Verified 11/29/18 04:52) Swelling Home Medications: Home Medications Medication Instructions Recorded Confirmed Last Taken Type AtorvaSTATin [Lipitor] 40 mg PO QHS 04/27/17 05/01/19 12/20/18 History traMADoL [Ultram 50 MG tab] 50 mg PO Q6H PRN 04/27/17 05/01/19 12/20/18 History Amlodipine Besylate [Norvasc] 10 mg PO QDAY 08/04/18 05/01/19 12/20/18 History Aspirin [Adult Low Dose Aspirin EC] 81 mg PO DAILY 08/04/18 05/01/19 12/20/18 History Insulin Aspart (Nf) [NovoLOG 100 10 units SUB-Q PRN 08/04/18 05/01/19 12/20/18 History UNITS/ML VIAL] Insulin Detemir (Nf) [Levemir 30 units SUB-Q QHS 08/04/18 05/01/19 12/20/18 History Flextouch (Nf)] raNITIdine HCl [Zantac] 150 mg PO QDAY 08/04/18 05/01/19 12/20/18 History oxyCODONE /ACETAMINOPHEN [Percocet 2 tab PO Q6H PRN #30 tablet 12/23/18 05/03/19 04/28/19 Rx 5/325 mg] hydrALAZINE [Apresoline TAB] 100 mg PO TID #90 tab 12/24/18 05/01/19 Unknown Rx Vit B Comp No.3/Folic/C/Biotin 1 each PO DAILY 05/01/19 05/01/19 Unknown History [Carisa-Sonya Rx Tablet] carvediloL [Coreg] 25 mg PO BID 05/01/19 05/01/19 Unknown History cloNIDine [Catapres] 0.1 mg PO BID #60 tablet 05/03/19 Unknown Rx Active Medications: Generic Name Dose Route Start Last Admin Trade Name Freq PRN Reason Stop Dose Admin Amlodipine Besylate 10 mg 05/31/19 20:00 06/01/19 16:04 Amlodipine PO 10 mg DAILY KIKI Administration Aspirin 81 mg 06/01/19 10:00 06/01/19 16:00 Halfprin Ec PO 81 mg DAILY [facility]I Administration Atorvastatin Calcium 40 mg 05/31/19 22:00 06/01/19 21:17 Lipitor PO 40 mg QHS KIKI Administration Carvedilol 25 mg 05/31/19 22:00 06/01/19 21:17 Coreg PO 25 mg BID [facility]I Administration Clonidine HCl 0.1 mg 05/31/19 22:00 06/01/19 21:17 Catapres PO 0.1 mg BID [facility]I Administration Epoetin True 10,000 unit 05/31/19 17:22 Procrit IV PRESTON PRN hemodialysis Heparin Sodium (Porcine) 5,000 unit 05/31/19 22:00 06/01/19 21:18 Heparin SUB-Q 5,000 unit Q8HR [facility] Administration Hydralazine HCl 100 mg 05/31/19 20:00 06/01/19 21:17 Apresoline PO 100 mg TID K[facility]I Administration Sodium Chloride 100 mls @ 999 mls/hr 06/01/19 10:30 Nacl 0.9% IV PRESTON PRN Hypotension Insulin Glargine 30 units 05/31/19 22:00 06/01/19 21:18 Lantus SUB-Q Not Given QHS [facility] Insulin Human Lispro 10 unit 06/01/19 07:30 06/01/19 16:29 Humalog SUB-Q 10 unit AC [facility] Administration Insulin Human Regular 0 units 05/31/19 22:00 06/01/19 21:18 Humulin R SUB-Q Not Given ACHS [facility] Protocol Multivit/Ca Carb/B Cmplx/FA/Prenat 1 cap 06/01/19 10:00 06/01/19 16:00 Renal Caps PO 1 cap QDAY [facility] Administration Oxycodone/Acetaminophen 2 tab 05/31/19 18:58 06/01/19 16:06 Percocet 5/325 PO 2 tab Q6H PRN Administration Pain, Moderate (4-6)
[2019-06-02] MEDS: oxyCODONE /ACETAMINOPHEN 5-325MG TAB PO PRN ×4 (02:55→22:09)
[2019-06-02] MEDS: HEPARIN 5,000 UNIT/1 ML VIAL SUB-Q SCH ×3 (05:20→21:30)
[2019-06-02] MEDS: INSULIN LISPRO 100 UNIT/ML SUB-Q SCH ×3 (07:30→17:47)
[2019-06-02] MEDS: INSULIN REGULAR, HUMAN 100 UNITS/1 ML SUB-Q SCH ×4 (07:30→22:00)
[2019-06-02] MEDS: IPRATROPIUM/ALBUTEROL SULFATE 3 ML AMPUL.NEB IH SCH ×4 (08:09→20:51)
--- NOTE | 2019-06-02 08:21 | Progress Note ---
Assessment and Plan End stage renal disease with volume overload COPD with acute exacerbation Diabetes mellitus type 2 Hypertension, accelerated Pancytopenia likely due to malgnancy Pancreatic cancer on chemotherapy Severe protein calorie malnutrition -- We'll admit the patient to telemetry - Will provide scheduled nebulizer breathing treatment and as needed - Provide supplemental oxygen to keep oxygen saturation above 92% - Consider to consult pulmonary if no improvement in next 24 hours - may need to assess for home O2 before discharge - Consult nephrology to resume dialysis - We will resume home medications, monitor BP - nutrition consult - Provide DVT prophylaxis with heparin. Discharge after discussing with Nephrology Subjective Date of service: 06/01/19 Principal diagnosis: End stage Renal disease with fluid overload Interval history: 63-year-old male with a past medical history end-stage renal disease on dialysis Wednesday, , and Wednesday, hypertension, diabetes, COPD, hepatitis C, pancreatic cancer on chemotherapy twice a month presents to the hospital complains of cough and SOB. Patient complains of intermittent wheezing, chronic orthopnea, and PND. No reports of fever or chest pain. Patient had dialysis yesterday and states he started to feel short of breath last night. Last chemotherapy was a week ago 05/24. 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 Ty. CXR showed pulmonary edema. Nephrology consulted from ER. He is being admitted for further evaluation and Mx. Objective - Constitutional Vitals: Vital Signs - 12hr 06/01/19 06/01/19 06/02/19 20:23 23:09 00:00 Temperature 98.5 F 98.2 F Pulse Rate 67 69 67 Pulse Rate [ Throughout] Respiratory 20 16 Rate Respiratory Rate [ Throughout] Blood Pressure 158/65 142/67 O2 Sat by Pulse 100 98 Oximetry 06/02/19 06/02/19 06/02/19 03:56 07:43 08:11 Temperature 98.0 F 97.8 F Pulse Rate 67 64 Pulse Rate [ 85 Throughout] Respiratory 16 18 Rate Respiratory 18 Rate [ Throughout] Blood Pressure 164/76 162/73 O2 Sat by Pulse 100 100 Oximetry General appearance: Present: no acute distress, well-nourished - EENT Eyes: PERRL, EOM intact ENT: hearing intact, clear oral mucosa Ears: bilateral: normal - Neck Neck: supple, normal ROM - Respiratory Respiratory effort: normal Respiratory: bilateral: CTA - Breasts Breasts: normal - Cardiovascular Rhythm: regular Heart Sounds: Present: S1 & S2. Absent: gallop, rub Extremities: pulses intact, No edema, normal color, Full ROM - Gastrointestinal General gastrointestinal: Present: soft, non-tender, non-distended, normal bowel sounds - Genitourinary Male genitourinary: normal - Integumentary Integumentary: clear, warm, dry - Musculoskeletal Musculoskeletal: 1, strength equal bilaterally - Neurologic Neurologic: moves all extremities - Psychiatric Psychiatric: memory intact, appropriate mood/affect, intact judgment & insight - Labs CBC & Chem 7: 05/31/19 14:49 05/31/19 Unknown Labs: Abnormal lab results 06/01/19 06/01/19 06/01/19 Range/Units 09:05 10:41 16:15 POC Glucose 66 L 165 H 201 H (70-105) 06/01/19 Range/Units 20:54 POC Glucose 69 L (70-105)
[2019-06-02] MEDS: hydrALAZINE 100 MG TAB PO SCH ×3 (09:00→21:30)
[2019-06-02] MEDS: ASPIRIN EC 81 MG TAB PO SCH (10:51)
[2019-06-02] MEDS: carvediloL 25 MG TAB PO SCH ×2 (10:51→21:30)
[2019-06-02] MEDS: cloNIDine 0.1 MG TAB PO SCH ×2 (10:51→21:31)
[2019-06-02] MEDS: FOLIC ACID/VIT B COMP W-C 1 MG (RENAL CAPS) PO SCH (10:51)
[2019-06-02] MEDS: amLODIPine 10 MG TAB PO SCH (10:51)
[2019-06-02] MEDS ORDERED: ALBUTEROL 2.5 MG/3 ML NEBU IH PRN (16:13)
--- NOTE | 2019-06-02 18:31 | Progress Note ---
Assessment and Plan - Patient Problems (1) Pulmonary edema Current Visit: Yes Status: Acute Plan to address problem: Acute pulmonary edema secondary to fluid overload secondary to end-stage renal disease. Improving with dialysis (2) Pancreatic cancer Current Visit: Yes Status: Chronic Qualifiers: Plan to address problem: Continue chemotherapy at [place]. Follow-up with oncologist (3) Acute respiratory failure with hypoxia Current Visit: No Status: Acute Plan to address problem: Improving. Continue bronchodilator nebulizer treatments. Reevaluate tomorrow (4) End-stage renal disease needing dialysis Current Visit: No Status: Acute Plan to address problem: Hemodialysis on Wednesday, and Wednesday Subjective Date of service: 06/02/19 Principal diagnosis: End stage Renal disease with fluid overload Interval history: Patient seen lying in bed. He has no complaints. Feeling better Objective - Exam Narrative Exam: Middle-aged -Lithuanian female lying in bed in no acute distress HEENT: NCAT, pink oral mucous membrane Neck: Supple, no venous distention CVS: S1S2 RRR with no murmur, rub or gallop Chest: Breath sounds to be diminished with faint wheezes. Improving Abdomen: Protuberant, soft, nontender, no organomegaly, bowel sounds are present Extremities: trace edema Neuro: Awake, alert no focal deficits - Vital Signs Vital signs: Vital Signs - 12hr 06/02/19 06/02/19 06/02/19 07:43 08:11 10:00 Temperature 97.8 F Pulse Rate 64 77 Pulse Rate [ 85 Throughout] Respiratory 18 Rate Respiratory 18 Rate [ Throughout] Blood Pressure 162/73 O2 Sat by Pulse 100 Oximetry 06/02/19 06/02/19 06/02/19 11:48 12:05 15:59 Temperature 98.2 F Pulse Rate 77 Pulse Rate [ 85 76 Throughout] Respiratory 18 Rate Respiratory 18 20 Rate [ Throughout] Blood Pressure 161/72 O2 Sat by Pulse 100 Oximetry 06/02/19 06/02/19 06/02/19 16:11 16:12 16:14 Temperature Pulse Rate Pulse Rate [ Throughout] Respiratory Rate Respiratory Rate [ Throughout] Blood Pressure O2 Sat by Pulse 97 97 97 Oximetry - Lab 05/31/19 14:49 05/31/19 Unknown Most recent lab results Calcium 9.5 mg/dL (8.4-10.2) 05/31/19 Unknown Medications & Allergies - Medications Allergies/Adverse Reactions: Allergies morphine Allergy (Verified 11/29/18 04:52) Swelling Home Medications: Home Medications Medication Instructions Recorded Confirmed Last Taken Type AtorvaSTATin [Lipitor] 40 mg PO QHS 04/27/17 05/01/19 12/20/18 History traMADoL [Ultram 50 MG tab] 50 mg PO Q6H PRN 04/27/17 05/01/19 12/20/18 History Amlodipine Besylate [Norvasc] 10 mg PO QDAY 08/04/18 05/01/19 12/20/18 History Aspirin [Adult Low Dose Aspirin EC] 81 mg PO DAILY 08/04/18 05/01/19 12/20/18 History Insulin Aspart (Nf) [NovoLOG 100 10 units SUB-Q PRN 08/04/18 05/01/19 12/20/18 History UNITS/ML VIAL] Insulin Detemir (Nf) [Levemir 30 units SUB-Q QHS 08/04/18 05/01/19 12/20/18 History Flextouch (Nf)] raNITIdine HCl [Zantac] 150 mg PO QDAY 08/04/18 05/01/19 12/20/18 History oxyCODONE /ACETAMINOPHEN [Percocet 2 tab PO Q6H PRN #30 tablet 12/23/18 05/03/19 04/28/19 Rx 5/325 mg] hydrALAZINE [Apresoline TAB] 100 mg PO TID #90 tab 12/24/18 05/01/19 Unknown Rx Vit B Comp No.3/Folic/C/Biotin 1 each PO DAILY 05/01/19 05/01/19 Unknown History [Carisa-Sonya Rx Tablet] carvediloL [Coreg] 25 mg PO BID 05/01/19 05/01/19 Unknown History cloNIDine [Catapres] 0.1 mg PO BID #60 tablet 05/03/19 Unknown Rx Active Medications: Generic Name Dose Route Start Last Admin Trade Name Freq PRN Reason Stop Dose Admin Albuterol 2.5 mg 06/02/19 16:13 Proventil IH Q4HRT PRN Shortness Of Breath Albuterol/Ipratropium 1 ampul 06/02/19 20:00 Duoneb *Not For Prn Use* IH TIDRT KIKI Amlodipine Besylate 10 mg 05/31/19 20:00 06/02/19 10:51 Amlodipine PO 10 mg DAILY [facility] Administration Aspirin 81 mg 06/01/19 10:00 06/02/19 10:51 Halfprin Ec PO 81 mg DAILY [facility] Administration Atorvastatin Calcium 40 mg 05/31/19 22:00 06/01/19 21:17 Lipitor PO 40 mg QHS [facility]I Administration Carvedilol 25 mg 05/31/19 22:00 06/02/19 10:51 Coreg PO 25 mg BID K[facility] Administration Clonidine HCl 0.1 mg 05/31/19 22:00 06/02/19 10:51 Catapres PO 0.1 mg BID [facility] Administration Epoetin True 10,000 unit 05/31/19 17:22 Procrit IV PRESTON PRN hemodialysis Heparin Sodium (Porcine) 5,000 unit 05/31/19 22:00 06/02/19 13:11 Heparin SUB-Q 5,000 unit Q8HR [facility] Administration Hydralazine HCl 100 mg 05/31/19 20:00 06/02/19 13:11 Apresoline PO 100 mg TID [facility] Administration Sodium Chloride 100 mls @ 999 mls/hr 06/01/19 10:30 Nacl 0.9% IV PREST[facility] PRN Hypotension Insulin Glargine 30 units 05/31/19 22:00 06/01/19 21:18 Lantus SUB-Q Not Given QHS [facility] Insulin Human Lispro 10 unit 06/01/19 07:30 06/02/19 17:47 Humalog SUB-Q 10 unit AC [facility] Administration Insulin Human Regular 0 units 05/31/19 22:00 06/02/19 17:48 Humulin R SUB-Q 3 units ACHS [facility] Administration Protocol Multivit/Ca Carb/B Cmplx/FA/Prenat 1 cap 06/01/19 10:00 06/02/19 10:51 Renal Caps PO 1 cap QDAY [facility] Administration Oxycodone/Acetaminophen 2 tab 05/31/19 18:58 06/02/19 15:30 Percocet 5/325 PO 2 tab Q6H PRN Administration Pain, Moderate (4-6)
--- NOTE | 2019-06-02 19:47 | Progress Note ---
Assessment and Plan Assessment and plan: --Diabetes mellitus type 2; uncontrolled Accu-Chek sliding scale coverage, ADA diet, insulin ,adjust as needed Check hemoglobin A1c, diabetic education as needed --End stage renal disease with volume overload Hemodialysis per schedule, nephrology following --COPD with acute exacerbation; Continue oxygen nebulizers and supportive care --Hypertension, accelerated; Well-controlled, continue current antihypertensives and when necessary medications --Pancytopenia likely due to malgnancy; Closely monitor, follow oncologist upon discharge --Pancreatic cancer on chemotherapy; Follow oncologist upon discharge --Severe protein calorie malnutrition; Nutrition supplements and supportive care --DVT prophylaxis; heparin Monitor closely and adjust the management as needed Plan of care reviewed with the patient and his nurse History Interval history: Patient Seen and examined medical records reviewed Complains of generalized weakness Alert awake oriented not in acute distress Vital signs reviewed Hospitalist Physical - Constitutional Vitals: Temp Pulse Resp BP Pulse Ox 98.2 F 77 20 161/72 97 06/02/19 11:48 06/02/19 18:00 06/02/19 15:59 06/02/19 11:48 06/02/19 16:14 General appearance: Present: no acute distress, well-nourished - EENT Eyes: Present: PERRL, EOM intact - Neck Neck: Present: supple, normal ROM - Respiratory Respiratory effort: normal Respiratory: bilateral: diminished, rales, negative: rhonchi, wheezing - Cardiovascular Rhythm: regular Heart Sounds: Present: S1 & S2 - Extremities Extremities: no ischemia, No edema - Abdominal General gastrointestinal: soft, non-tender, non-distended, normal bowel sounds - Integumentary Integumentary: Present: clear, warm - Psychiatric Psychiatric: appropriate mood/affect, cooperative - Neurologic Neurologic: CNII-XII intact, moves all extremities Results - Labs CBC & Chem 7: 06/03/19 10:21 06/03/19 10:21 Labs: Laboratory Last Values WBC 1.3 K/mm3 (4.5-11.0) L* 05/31/19 14:49 RBC 3.17 M/mm3 (3.65-5.03) L 05/31/19 14:49 Hgb 9.9 gm/dl (11.8-15.2) L 05/31/19 14:49 Hct 30.7 % (35.5-45.6) L 05/31/19 14:49 MCV 97 fl (84-94) H 05/31/19 14:49 MCH 31 pg (28-32) 05/31/19 14:49 MCHC 32 % (32-34) 05/31/19 14:49 RDW 16.3 % (13.2-15.2) H 05/31/19 14:49 Plt Count 110 K/mm3 (140-440) L 05/31/19 14:49 Add Manual Diff Complete 05/31/19 14:49 Total Counted 100 05/31/19 14:49 Seg Neuts % (Manual) 52.0 % (40.0-70.0) 05/31/19 14:49 Band Neutrophils % 0 % 05/31/19 14:49 Lymphocytes % (Manual) 38.0 % (13.4-35.0) H 05/31/19 14:49 Reactive Lymphs % (Man) 0 % 05/31/19 14:49 Monocytes % (Manual) 8.0 % (0.0-7.3) H 05/31/19 14:49 Eosinophils % (Manual) 1.0 % (0.0-4.3) 05/31/19 14:49 Basophils % (Manual) 1.0 % (0.0-1.8) 05/31/19 14:49 Metamyelocytes % 0 % 05/31/19 14:49 Myelocytes % 0 % 05/31/19 14:49 Promyelocytes % 0 % 05/31/19 14:49 Blast Cells % 0 % 05/31/19 14:49 Nucleated RBC % Not Reportable 05/31/19 14:49 Seg Neutrophils # Man 0.7 K/mm3 (1.8-7.7) L 05/31/19 14:49 Band Neutrophils # 0.0 K/mm3 05/31/19 14:49 Lymphocytes # (Manual) 0.5 K/mm3 (1.2-5.4) L 05/31/19 14:49 Abs React Lymphs (Man) 0.0 K/mm3 05/31/19 14:49 Monocytes # (Manual) 0.1 K/mm3 (0.0-0.8) 05/31/19 14:49 Eosinophils # (Manual) 0.0 K/mm3 (0.0-0.4) 05/31/19 14:49 Basophils # (Manual) 0.0 K/mm3 (0.0-0.1) 05/31/19 14:49 Metamyelocytes # 0.0 K/mm3 05/31/19 14:49 Myelocytes # 0.0 K/mm3 05/31/19 14:49 Promyelocytes # 0.0 K/mm3 05/31/19 14:49 Blast Cells # 0.0 K/mm3 05/31/19 14:49 WBC Morphology Not Reportable 05/31/19 14:49 Hypersegmented Neuts Not Reportable 05/31/19 14:49 Hyposegmented Neuts Not Reportable 05/31/19 14:49 Hypogranular Neuts Not Reportable 05/31/19 14:49 Smudge Cells Not Reportable 05/31/19 14:49 Toxic Granulation Not Reportable 05/31/19 14:49 Toxic Vacuolation Not Reportable 05/31/19 14:49 Dohle Bodies Not Reportable 05/31/19 14:49 Pelger-Huet Anomaly Not Reportable 05/31/19 14:49 Hakeem Rods Not Reportable 05/31/19 14:49 Platelet Estimate Not Reportable 05/31/19 14:49 Clumped Platelets Not Reportable 05/31/19 14:49 Plt Clumps, EDTA Not Reportable 05/31/19 14:49 Large Platelets Not Reportable 05/31/19 14:49 Giant Platelets Not Reportable 05/31/19 14:49 Platelet Satelliting Not Reportable 05/31/19 14:49 Plt Morphology Comment Not Reportable 05/31/19 14:49 RBC Morphology Normal 05/31/19 14:49 Dimorphic RBCs Not Reportable 05/31/19 14:49 Polychromasia Not Reportable 05/31/19 14:49 Hypochromasia Not Reportable 05/31/19 14:49 Poikilocytosis Not Reportable 05/31/19 14:49 Anisocytosis Not Reportable 05/31/19 14:49 Microcytosis Not Reportable 05/31/19 14:49 Macrocytosis Not Reportable 05/31/19 14:49 Spherocytes Not Reportable 05/31/19 14:49 Pappenheimer Bodies Not Reportable 05/31/19 14:49 Sickle Cells Not Reportable 05/31/19 14:49 Target Cells Not Reportable 05/31/19 14:49 Tear Drop Cells Not Reportable 05/31/19 14:49 Ovalocytes Not Reportable 05/31/19 14:49 Helmet Cells Not Reportable 05/31/19 14:49 G[place]-D[place] Bodies Not Reportable 05/31/19 14:49 Tamms Rings Not Reportable 05/31/19 14:49 Angel Cells Not Reportable 05/31/19 14:49 Bite Cells Not Reportable 05/31/19 14:49 Crenated Cell Not Reportable 05/31/19 14:49 Elliptocytes Not Reportable 05/31/19 14:49 Acanthocytes (Spur) Not Reportable 05/31/19 14:49 Rouleaux Not Reportable 05/31/19 14:49 Hemoglobin C Crystals Not Reportable 05/31/19 14:49 Schistocytes Not Reportable 05/31/19 14:49 Malaria parasites Not Reportable 05/31/19 14:49 Rich Bodies Not Reportable 05/31/19 14:49 Hem Pathologist Commnt No 05/31/19 14:49 Sodium 130 mmol/L (137-145) L 05/31/19 Unknown Potassium 4.6 mmol/L (3.6-5.0) 05/31/19 Unknown Potassium TNR 05/31/19 Unknown Chloride 91.4 mmol/L (98-107) L 05/31/19 Unknown Carbon Dioxide 19 mmol/L (22-30) L 05/31/19 Unknown Anion Gap 26 mmol/L 05/31/19 Unknown BUN 38 mg/dL (9-20) H 05/31/19 Unknown Creatinine 5.9 mg/dL (0.8-1.5) H 05/31/19 Unknown Estimated GFR 12 ml/min 05/31/19 Unknown BUN/Creatinine Ratio 6 % 05/31/19 Unknown Glucose 405 mg/dL (75-100) H 05/31/19 Unknown POC Glucose 225 (70-105) H 06/02/19 16:47 Calcium 9.5 mg/dL (8.4-10.2) 05/31/19 Unknown Total Bilirubin 0.90 mg/dL (0.1-1.2) 05/31/19 Unknown AST 137 units/L (5-40) H 05/31/19 Unknown ALT 116 units/L (7-56) H 05/31/19 Unknown Alkaline Phosphatase 118 units/L (35-129) 05/31/19 Unknown Total Protein 8.7 g/dL (6.3-8.2) H 05/31/19 Unknown Albumin 3.4 g/dL (3.9-5) L 05/31/19 Unknown Albumin/Globulin Ratio 0.6 % 05/31/19 Unknown Hepatitis A IgM Ab Non-reactive (NonReactive) 05/31/19 18:25 Hep Bs Antigen Non-reactive (Negative) 05/31/19 18:25 Hep B Core IgM Ab Non-reactive (NonReactive) 05/31/19 18:25 Hepatitis C Antibody Reactive (NonReactive) A 05/31/19 18:25 Active Medications - Current Medications Current Medications: Generic Name Dose Route Start Last Admin Trade Name Freq PRN Reason Stop Dose Admin Albuterol 2.5 mg 06/02/19 16:13 Proventil IH Q4HRT PRN Shortness Of Breath Albuterol/Ipratropium 1 ampul 06/02/19 20:00 Duoneb *Not For Prn Use* IH TIDRT KIKI Amlodipine Besylate 10 mg 05/31/19 20:00 06/02/19 10:51 Amlodipine PO 10 mg DAILY KIKI Administration Aspirin 81 mg 06/01/19 10:00 06/02/19 10:51 Halfprin Ec PO 81 mg DAILY KIKI Administration Atorvastatin Calcium 40 mg 05/31/19 22:00 06/01/19 21:17 Lipitor PO 40 mg QHS KIKI Administration Carvedilol 25 mg 05/31/19 22:00 06/02/19 10:51 Coreg PO 25 mg BID KIKI Administration Clonidine HCl 0.1 mg 05/31/19 22:00 06/02/19 10:51 Catapres PO 0.1 mg BID KIKI Administration Epoetin True 10,000 unit 05/31/19 17:22 Procrit IV PRESTON PRN hemodialysis Heparin Sodium (Porcine) 5,000 unit 05/31/19 22:00 06/02/19 13:11 Heparin SUB-Q 5,000 unit Q8HR KIKI Administration Hydralazine HCl 100 mg 05/31/19 20:00 06/02/19 13:11 Apresoline PO 100 mg TID KIKI Administration Sodium Chloride 100 mls @ 999 mls/hr 06/01/19 10:30 Nacl 0.9% IV PRESTON PRN Hypotension Insulin Glargine 30 units 05/31/19 22:00 06/01/19 21:18 Lantus SUB-Q Not Given QHS KIKI Insulin Human Lispro 10 unit 06/01/19 07:30 06/02/19 17:47 Humalog SUB-Q 10 unit AC KIKI Administration Insulin Human Regular 0 units 05/31/19 22:00 06/02/19 17:48 Humulin R SUB-Q 3 units ACHS KIKI Administration Protocol Multivit/Ca Carb/B Cmplx/FA/Prenat 1 cap 06/01/19 10:00 06/02/19 10:51 Renal Caps PO 1 cap QDAY KIKI Administration Oxycodone/Acetaminophen 2 tab 05/31/19 18:58 06/02/19 15:30 Percocet 5/325 PO 2 tab Q6H PRN Administration Pain, Moderate (4-6) Nutrition/Malnutrition Assess - Dietary Evaluation Nutrition/Malnutrition Findings: Nutrition Notes Start: 06/01/19 14:58 Freq: Status: Active Protocol: Document 06/02/19 13:15 CT (Rec: 06/02/19 13:22 CT [id number]) Co-Sign 06/02/19 13:15 LP Nutrition Notes Need for Assessment generated from: Education Initial or Follow up Reassessment Current Diagnosis COPD,Diabetes,Hypertension, Respiratory Failure Other Pertinent Diagnosis ESRD on HD, Pancreatic Cancer on chemo, Anemia, Edema Current Diet Renal Consistent CHO Labs/Tests POC Glu 158 Pertinent Medications Humulin Lantus Lipitor Humalog Height 5 ft 9 in Weight 60.2 kg Usual Body Weight 68.039 kg [place] Body Weight (kg) 72.72 BMI 19.5 Intake Prior to Admission Poor Weight change and time frame 13% wt loss over 2 months Weight Status Underweight Subjective/Other Information Pt follow up for DM education and PO intakes. Pt stated that he does not read well when asked if he wanted diet education. Pt accepted verbal education and handout was left for pt son. Pt did not get breakfast even though he has a diet order. Pt stated last episode of nausea was (06/01). Pt reports that he gets dry mouth from his chemotherapy. Noted mild orbital and temporal wasting. Burn Absent Trauma Absent GI Symptoms Nausea Food Allergy No Minimum of two criteria Yes Interpretation of Weight Loss (severe) >7.5% in 3 months Body Fat Depletion Mild depletion (non-severe) Muscle Mass Mild Depletion (non-severe) #1 Nutrition Diagnosis Malnutrition Etiology ESRD Pancreatic cancer As Evidenced by Signs and Symptoms 13% wt loss in 2 months, mild orbital and temporal wasting Is patient on ventilator? No Is Patient Ambulatory and/or Out of Bed Yes REE-([place]-St. Jeor-ambulatory/OOB) [ 1803.594 [id number]] Kcal/Kg value to use for calculation 35 Approximate Energy Requirements Using 2107 kcal/Kg Calculation Used for Recommendations Kcal/kg Additional Notes Protein needs: 72-90 g/day (1. 2-1.5 g/kg/day) Fluid needs: 7370-9497 ml/day Nutrition Intervention Change Diet Order: Continue current Teaching Recipient Patient Learning Readiness Poor Teaching Methods Discussion,Handout Response to Teaching Verbalize understanding Education Handouts Provided CHO counting Barriers to Learning Reading skills RD phone number provided Yes Patient aware of follow up options Yes Goal #1 Meet >80% of energy and protein needs Goal #2 Wt gain/maintenance Anticipated Discharge Needs: Renal Consistent CHO Follow-Up By: 06/05/19 Additional Comments Follow up for PO intakes
[2019-06-02] MEDS ORDERED: MAGNESIUM HYDROXIDE (MOM) ORAL LIQD UDC PO PRN (20:10)
[2019-06-02] MEDS ORDERED: MAGNESIUM HYDROXIDE (MOM) ORAL LIQD UDC PO ONE (20:15)
[2019-06-02] MEDS: NEOMY 3.5 MG/BACIT 400 UNITS/POLY B 5000 UNITS/GM OINT PACKET TP SCH (21:40)
[2019-06-02] MEDS: INSULIN GLARGINE 100 UNITS/ML SUB-Q SCH (22:00)
[2019-06-03] MEDS: HEPARIN 5,000 UNIT/1 ML VIAL SUB-Q SCH ×3 (05:12→21:50)
[2019-06-03] MEDS: IPRATROPIUM/ALBUTEROL SULFATE 3 ML AMPUL.NEB IH SCH ×5 (10:18→20:25)
[2019-06-03 10:38] LABS: Basophils % (Auto) 0.3 % (0.0-1.8); Eosinophils % (Auto) 0.3 % (0.0-4.3); Hematocrit 27.7 % (35.5-45.6); Hemoglobin 9.1 gm/dl (11.8-15.2); Lymphocytes # (Auto) 0.8 K/mm3 (1.2-5.4); Lymphocytes % (Auto) 17.5 % (13.4-35.0); Mean Corpuscular HGB Conc 33 % (32-34); Mean Corpuscular Volume 97 fl (84-94); Monocytes # (Auto) 0.5 K/mm3 (0.0-0.8); Monocytes % (Auto) 10.7 % (0.0-7.3); Red Blood Count 2.84 M/mm3 (3.65-5.03); Red Cell Distribution Width 16.4 % (13.2-15.2)
[2019-06-03 10:44] LABS: Platelet Count 91 K/mm3 (140-440)
[2019-06-03 10:48] LABS: Calcium 9.5 mg/dL (8.4-10.2)
--- NOTE | 2019-06-03 10:49 | Progress Note ---
Assessment and Plan - Patient Problems (1) Pulmonary edema Current Visit: Yes Status: Acute Plan to address problem: Acute pulmonary edema secondary to fluid overload secondary to end-stage renal disease. Improved with dialysis. Hemodialysis today and patient should be okay to discharge home after dialysis. We will reestablish dry weight at his weight postdialysis today. (2) Pancreatic cancer Current Visit: Yes Status: Chronic Qualifiers: Plan to address problem: Continue chemotherapy at [facility]. Follow-up with oncologist (3) Acute respiratory failure with hypoxia Current Visit: No Status: Acute Plan to address problem: Improving. Continue bronchodilator nebulizer treatments. Room air O2 sats 97%. Respiratory therapist. Should be okay to discharge home with metered-dose inhalers (4) End-stage renal disease needing dialysis Current Visit: No Status: Acute Plan to address problem: Hemodialysis on Wednesday, and Wednesday Subjective Date of service: 06/03/19 Principal diagnosis: End stage Renal disease with fluid overload Interval history: Patient seen lying in bed. He has no new complaints. Feeling better. Shortness of breath improving Objective - Exam Narrative Exam: Middle-aged -[place] female lying in bed in no acute distress HEENT: NCAT, pink oral mucous membrane Neck: Supple, no venous distention CVS: S1S2 RRR with no murmur, rub or gallop Chest: Breath sounds to be diminished with faint wheezes. Improving Abdomen: Protuberant, soft, nontender, no organomegaly, bowel sounds are present Extremities: trace edema Neuro: Awake, alert no focal deficits - Vital Signs Vital signs: Vital Signs - 12hr 06/02/19 06/02/19 06/03/19 23:26 23:27 00:00 Temperature 98.3 F Pulse Rate 72 83 Respiratory 20 Rate Blood Pressure 131/55 O2 Sat by Pulse 98 Oximetry 06/03/19 06/03/19 06/03/19 04:24 04:26 07:33 Temperature 98.4 F 98.4 F Pulse Rate 79 65 Respiratory 18 18 Rate Blood Pressure 169/76 176/72 O2 Sat by Pulse 99 84 Oximetry - Lab 06/03/19 10:21 05/31/19 Unknown Most recent lab results Calcium 9.5 mg/dL (8.4-10.2) 05/31/19 Unknown Medications & Allergies - Medications Allergies/Adverse Reactions: Allergies morphine Allergy (Verified 11/29/18 04:52) Swelling Home Medications: Home Medications Medication Instructions Recorded Confirmed Last Taken Type AtorvaSTATin [Lipitor] 40 mg PO QHS 04/27/17 05/01/19 12/20/18 History traMADoL [Ultram 50 MG tab] 50 mg PO Q6H PRN 04/27/17 05/01/19 12/20/18 History Amlodipine Besylate [Norvasc] 10 mg PO QDAY 08/04/18 05/01/19 12/20/18 History Aspirin [Adult Low Dose Aspirin EC] 81 mg PO DAILY 08/04/18 05/01/19 12/20/18 History Insulin Aspart (Nf) [NovoLOG 100 10 units SUB-Q PRN 08/04/18 05/01/19 12/20/18 History UNITS/ML VIAL] Insulin Detemir (Nf) [Levemir 30 units SUB-Q QHS 08/04/18 05/01/19 12/20/18 History Flextouch (Nf)] raNITIdine HCl [Zantac] 150 mg PO QDAY 08/04/18 05/01/19 12/20/18 History oxyCODONE /ACETAMINOPHEN [Percocet 2 tab PO Q6H PRN #30 tablet 12/23/18 05/03/19 04/28/19 Rx 5/325 mg] hydrALAZINE [Apresoline TAB] 100 mg PO TID #90 tab 12/24/18 05/01/19 Unknown Rx Vit B Comp No.3/Folic/C/Biotin 1 each PO DAILY 05/01/19 05/01/19 Unknown History [Carisa-Sonya Rx Tablet] carvediloL [Coreg] 25 mg PO BID 05/01/19 05/01/19 Unknown History cloNIDine [Catapres] 0.1 mg PO BID #60 tablet 05/03/19 Unknown Rx Active Medications: Generic Name Dose Route Start Last Admin Trade Name Freq PRN Reason Stop Dose Admin Albuterol 2.5 mg 06/02/19 16:13 Proventil IH Q4HRT PRN Shortness Of Breath Albuterol/Ipratropium 1 ampul 06/02/19 20:00 06/03/19 10:18 Duoneb *Not For Prn Use* IH 1 ampul TIDRT KIKI Administration Amlodipine Besylate 10 mg 05/31/19 20:00 06/02/19 10:51 Amlodipine PO 10 mg DAILY KIKI Administration Aspirin 81 mg 06/01/19 10:00 06/02/19 10:51 Halfprin Ec PO 81 mg DAILY KIKI Administration Atorvastatin Calcium 40 mg 05/31/19 22:00 06/02/19 21:30 Lipitor PO 40 mg QHS KIKI Administration Carvedilol 25 mg 05/31/19 22:00 06/02/19 21:30 Coreg PO 25 mg BID KIKI Administration Clonidine HCl 0.1 mg 05/31/19 22:00 06/02/19 21:31 Catapres PO 0.1 mg BID KIKI Administration Epoetin True 10,000 unit 05/31/19 17:22 Procrit IV PRESTON PRN hemodialysis Heparin Sodium (Porcine) 5,000 unit 05/31/19 22:00 06/03/19 05:12 Heparin SUB-Q 5,000 unit Q8HR KIKI Administration Hydralazine HCl 100 mg 05/31/19 20:00 06/02/19 21:30 Apresoline PO 100 mg TID [facility] Administration Sodium Chloride 100 mls @ 999 mls/hr 06/01/19 10:30 Nacl 0.9% IV PRESTON PRN Hypotension Insulin Glargine 30 units 05/31/19 22:00 06/02/19 22:00 Lantus SUB-Q Not Given QHS [facility] Insulin Human Lispro 10 unit 06/01/19 07:30 06/02/19 17:47 Humalog SUB-Q 10 unit AC [facility] Administration Insulin Human Regular 0 units 05/31/19 22:00 06/02/19 22:00 Humulin R SUB-Q Not Given ACHS [facility] Protocol Magnesium Hydroxide 30 ml 06/02/19 20:10 Milk Of Magnesia PO QDAY PRN Constipation Multivit/Ca Carb/B Cmplx/FA/Prenat 1 cap 06/01/19 10:00 06/02/19 10:51 Renal Caps PO 1 cap QDAY KIKI Administration Neomycin/Polymyxin/Bacitracin 1 applic 06/02/19 22:00 06/02/19 21:40 Triple Antibiotic TP 1 applic TID KIKI Administration Oxycodone/Acetaminophen 2 tab 05/31/19 18:58 06/02/19 22:09 Percocet 5/325 PO 2 tab Q6H PRN Administration Pain, Moderate (4-6)
--- NOTE | 2019-06-03 11:33 | Progress Note ---
Assessment and Plan Assessment and plan: --End stage renal disease with volume overload Hemodialysis per schedule, nephrology following --COPD with acute exacerbation; Continue oxygen nebulizers and supportive care --Diabetes mellitus type 2; labile blood sugars Patient has fluctuating hypoglycemia hyperglycemia Will hold Lantus, continue Accu-Chek sliding scale coverage, ADA diet, adjust as needed --Hypertension, accelerated; Well-controlled, continue current antihypertensives and when necessary medications --Pancytopenia likely due to malgnancy; Closely monitor, follow oncologist upon discharge --Pancreatic cancer on chemotherapy; Follow oncologist upon discharge --Severe protein calorie malnutrition; Nutrition supplements and supportive care --DVT prophylaxis; heparin Monitor closely and adjust the management as needed Possible discharge home tomorrow if stable Plan of care reviewed with the patient and his nurse History Interval history: Patient seen and examined medical records reviewed Patient received hemodialysis today, blood sugars are labile with Episodes of hypoglycemia and hyperglycemia Patient has no new complaints Hospitalist Physical - Constitutional Vitals: Temp Pulse Resp BP Pulse Ox 98.4 F 65 18 176/72 84 06/03/19 07:33 06/03/19 07:33 06/03/19 07:33 06/03/19 07:33 06/03/19 07:33 General appearance: Present: no acute distress, well-nourished - EENT Eyes: Present: PERRL, EOM intact - Neck Neck: Present: supple, normal ROM - Respiratory Respiratory effort: normal Respiratory: bilateral: diminished, rhonchi, negative: rales, wheezing - Cardiovascular Rhythm: regular Heart Sounds: Present: S1 & S2 - Extremities Extremities: no ischemia, No edema - Abdominal General gastrointestinal: soft, non-tender, non-distended, normal bowel sounds - Integumentary Integumentary: Present: clear, warm - Psychiatric Psychiatric: appropriate mood/affect, cooperative - Neurologic Neurologic: moves all extremities Results - Labs CBC & Chem 7: 06/03/19 10:21 06/03/19 10:21 Labs: Laboratory Last Values WBC 4.5 K/mm3 (4.5-11.0) 06/03/19 10:21 RBC 2.84 M/mm3 (3.65-5.03) L 06/03/19 10:21 Hgb 9.1 gm/dl (11.8-15.2) L 06/03/19 10:21 Hct 27.7 % (35.5-45.6) L 06/03/19 10:21 MCV 97 fl (84-94) H 06/03/19 10:21 MCH 32 pg (28-32) 06/03/19 10:21 MCHC 33 % (32-34) 06/03/19 10:21 RDW 16.4 % (13.2-15.2) H 06/03/19 10:21 Plt Count 91 K/mm3 (140-440) L 06/03/19 10:21 Lymph % (Auto) 17.5 % (13.4-35.0) 06/03/19 10:21 [place] % (Auto) 10.7 % (0.0-7.3) H 06/03/19 10:21 Eos % (Auto) 0.3 % (0.0-4.3) 06/03/19 10:21 Baso % (Auto) 0.3 % (0.0-1.8) 06/03/19 10:21 Lymph # 0.8 K/mm3 (1.2-5.4) L 06/03/19 10:21 [place] # 0.5 K/mm3 (0.0-0.8) 06/03/19 10:21 Eos # 0.0 K/mm3 (0.0-0.4) 06/03/19 10:21 Baso # 0.0 K/mm3 (0.0-0.1) 06/03/19 10:21 Add Manual Diff Complete 05/31/19 14:49 Total Counted 100 05/31/19 14:49 Seg Neutrophils % 71.2 % (40.0-70.0) H 06/03/19 10:21 Seg Neuts % (Manual) 52.0 % (40.0-70.0) 05/31/19 14:49 Band Neutrophils % 0 % 05/31/19 14:49 Lymphocytes % (Manual) 38.0 % (13.4-35.0) H 05/31/19 14:49 Reactive Lymphs % (Man) 0 % 05/31/19 14:49 Monocytes % (Manual) 8.0 % (0.0-7.3) H 05/31/19 14:49 Eosinophils % (Manual) 1.0 % (0.0-4.3) 05/31/19 14:49 Basophils % (Manual) 1.0 % (0.0-1.8) 05/31/19 14:49 Metamyelocytes % 0 % 05/31/19 14:49 Myelocytes % 0 % 05/31/19 14:49 Promyelocytes % 0 % 05/31/19 14:49 Blast Cells % 0 % 05/31/19 14:49 Nucleated RBC % Not Reportable 05/31/19 14:49 Seg Neutrophils # 3.2 K/mm3 (1.8-7.7) 06/03/19 10:21 Seg Neutrophils # Man 0.7 K/mm3 (1.8-7.7) L 05/31/19 14:49 Band Neutrophils # 0.0 K/mm3 05/31/19 14:49 Lymphocytes # (Manual) 0.5 K/mm3 (1.2-5.4) L 05/31/19 14:49 Abs React Lymphs (Man) 0.0 K/mm3 05/31/19 14:49 Monocytes # (Manual) 0.1 K/mm3 (0.0-0.8) 05/31/19 14:49 Eosinophils # (Manual) 0.0 K/mm3 (0.0-0.4) 05/31/19 14:49 Basophils # (Manual) 0.0 K/mm3 (0.0-0.1) 05/31/19 14:49 Metamyelocytes # 0.0 K/mm3 05/31/19 14:49 Myelocytes # 0.0 K/mm3 05/31/19 14:49 Promyelocytes # 0.0 K/mm3 05/31/19 14:49 Blast Cells # 0.0 K/mm3 05/31/19 14:49 WBC Morphology Not Reportable 05/31/19 14:49 Hypersegmented Neuts Not Reportable 05/31/19 14:49 Hyposegmented Neuts Not Reportable 05/31/19 14:49 Hypogranular Neuts Not Reportable 05/31/19 14:49 Smudge Cells Not Reportable 05/31/19 14:49 Toxic Granulation Not Reportable 05/31/19 14:49 Toxic Vacuolation Not Reportable 05/31/19 14:49 Dohle Bodies Not Reportable 05/31/19 14:49 Pelger-Huet Anomaly Not Reportable 05/31/19 14:49 Hakeem Rods Not Reportable 05/31/19 14:49 Platelet Estimate Not Reportable 05/31/19 14:49 Clumped Platelets Not Reportable 05/31/19 14:49 Plt Clumps, EDTA Not Reportable 05/31/19 14:49 Large Platelets Not Reportable 05/31/19 14:49 Giant Platelets Not Reportable 05/31/19 14:49 Platelet Satelliting Not Reportable 05/31/19 14:49 Plt Morphology Comment Not Reportable 05/31/19 14:49 RBC Morphology Normal 05/31/19 14:49 Dimorphic RBCs Not Reportable 05/31/19 14:49 Polychromasia Not Reportable 05/31/19 14:49 Hypochromasia Not Reportable 05/31/19 14:49 Poikilocytosis Not Reportable 05/31/19 14:49 Anisocytosis Not Reportable 05/31/19 14:49 Microcytosis Not Reportable 05/31/19 14:49 Macrocytosis Not Reportable 05/31/19 14:49 Spherocytes Not Reportable 05/31/19 14:49 Pappenheimer Bodies Not Reportable 05/31/19 14:49 Sickle Cells Not Reportable 05/31/19 14:49 Target Cells Not Reportable 05/31/19 14:49 Tear Drop Cells Not Reportable 05/31/19 14:49 Ovalocytes Not Reportable 05/31/19 14:49 Helmet Cells Not Reportable 05/31/19 14:49 [place] Bodies Not Reportable 05/31/19 14:49 [place] Rings Not Reportable 05/31/19 14:49 Angel Cells Not Reportable 05/31/19 14:49 Bite Cells Not Reportable 05/31/19 14:49 Crenated Cell Not Reportable 05/31/19 14:49 Elliptocytes Not Reportable 05/31/19 14:49 Acanthocytes (Spur) Not Reportable 05/31/19 14:49 Rouleaux Not Reportable 05/31/19 14:49 Hemoglobin C Crystals Not Reportable 05/31/19 14:49 Schistocytes Not Reportable 05/31/19 14:49 Malaria parasites Not Reportable 05/31/19 14:49 Rich Bodies Not Reportable 05/31/19 14:49 Hem Pathologist Commnt No 05/31/19 14:49 Sodium 130 mmol/L (137-145) L 06/03/19 10:21 Potassium 4.7 mmol/L (3.6-5.0) 06/03/19 10:21 Chloride 89.8 mmol/L (98-107) L 06/03/19 10:21 Carbon Dioxide 24 mmol/L (22-30) 06/03/19 10:21 Anion Gap 21 mmol/L 06/03/19 10:21 BUN 44 mg/dL (9-20) H 06/03/19 10:21 Creatinine 6.2 mg/dL (0.8-1.5) H 06/03/19 10:21 Estimated GFR 11 ml/min 06/03/19 10:21 BUN/Creatinine Ratio 7 % 06/03/19 10:21 Glucose 337 mg/dL (75-100) H 06/03/19 10:21 POC Glucose 291 (70-105) H 06/03/19 07:41 Calcium 9.5 mg/dL (8.4-10.2) 06/03/19 10:21 Total Bilirubin 0.90 mg/dL (0.1-1.2) 05/31/19 Unknown AST 137 units/L (5-40) H 05/31/19 Unknown ALT 116 units/L (7-56) H 05/31/19 Unknown Alkaline Phosphatase 118 units/L (35-129) 05/31/19 Unknown Total Protein 8.7 g/dL (6.3-8.2) H 05/31/19 Unknown Albumin 3.4 g/dL (3.9-5) L 05/31/19 Unknown Albumin/Globulin Ratio 0.6 % 05/31/19 Unknown Hepatitis A IgM Ab Non-reactive (NonReactive) 05/31/19 18:25 Hep Bs Antigen Non-reactive (Negative) 05/31/19 18:25 Hep B Core IgM Ab Non-reactive (NonReactive) 05/31/19 18:25 Hepatitis C Antibody Reactive (NonReactive) A 05/31/19 18:25 Active Medications - Current Medications Current Medications: Generic Name Dose Route Start Last Admin Trade Name Freq PRN Reason Stop Dose Admin Albuterol 2.5 mg 06/02/19 16:13 Proventil IH Q4HRT PRN Shortness Of Breath Albuterol/Ipratropium 1 ampul 06/02/19 20:00 06/03/19 10:18 Duoneb *Not For Prn Use* IH 1 ampul TIDRT KIKI Administration Amlodipine Besylate 10 mg 05/31/19 20:00 06/02/19 10:51 Amlodipine PO 10 mg DAILY KIKI Administration Aspirin 81 mg 06/01/19 10:00 06/02/19 10:51 Halfprin Ec PO 81 mg DAILY KIKI Administration Atorvastatin Calcium 40 mg 05/31/19 22:00 06/02/19 21:30 Lipitor PO 40 mg QHS KIKI Administration Carvedilol 25 mg 05/31/19 22:00 06/02/19 21:30 Coreg PO 25 mg BID KIKI Administration Clonidine HCl 0.1 mg 05/31/19 22:00 06/02/19 21:31 Catapres PO 0.1 mg BID KIKI Administration Epoetin True 10,000 unit 05/31/19 17:22 Procrit IV PRESTON PRN hemodialysis Heparin Sodium (Porcine) 5,000 unit 05/31/19 22:00 06/03/19 05:12 Heparin SUB-Q 5,000 unit Q8HR KIKI Administration Hydralazine HCl 100 mg 05/31/19 20:00 06/02/19 21:30 Apresoline PO 100 mg TID KIKI Administration Sodium Chloride 100 mls @ 999 mls/hr 06/01/19 10:30 Nacl 0.9% IV PRESTON PRN Hypotension Insulin Glargine 30 units 05/31/19 22:00 06/02/19 22:00 Lantus SUB-Q Not Given QHS [facility] Insulin Human Lispro 10 unit 06/01/19 07:30 06/02/19 17:47 Humalog SUB-Q 10 unit AC KIKI Administration Insulin Human Regular 0 units 05/31/19 22:00 06/02/19 22:00 Humulin R SUB-Q Not Given ACHS [facility] Protocol Magnesium Hydroxide 30 ml 06/02/19 20:10 Milk Of Magnesia PO QDAY PRN Constipation Multivit/Ca Carb/B Cmplx/FA/Prenat 1 cap 06/01/19 10:00 06/02/19 10:51 Renal Caps PO 1 cap QDAY KIKI Administration Neomycin/Polymyxin/Bacitracin 1 applic 06/02/19 22:00 06/02/19 21:40 Triple Antibiotic TP 1 applic TID KIKI Administration Oxycodone/Acetaminophen 2 tab 05/31/19 18:58 06/02/19 22:09 Percocet 5/325 PO 2 tab Q6H PRN Administration Pain, Moderate (4-6) Nutrition/Malnutrition Assess - Dietary Evaluation Nutrition/Malnutrition Findings: Nutrition Notes Start: 06/01/19 14:58 Freq: Status: Active Protocol: Document 06/02/19 13:15 CT (Rec: 06/02/19 13:22 CT [id number]) Co-Sign 06/02/19 13:15 LP Nutrition Notes Need for Assessment generated from: Education Initial or Follow up Reassessment Current Diagnosis COPD,Diabetes,Hypertension, Respiratory Failure Other Pertinent Diagnosis ESRD on HD, Pancreatic Cancer on chemo, Anemia, Edema Current Diet Renal Consistent CHO Labs/Tests POC Glu 158 Pertinent Medications Humulin Lantus Lipitor Humalog Height 5 ft 9 in Weight 60.2 kg Usual Body Weight 68.039 kg [place] Body Weight (kg) 72.72 BMI 19.5 Intake Prior to Admission Poor Weight change and time frame 13% wt loss over 2 months Weight Status Underweight Subjective/Other Information Pt follow up for DM education and PO intakes. Pt stated that he does not read well when asked if he wanted diet education. Pt accepted verbal education and handout was left for pt son. Pt did not get breakfast even though he has a diet order. Pt stated last episode of nausea was (06/01). Pt reports that he gets dry mouth from his chemotherapy. Noted mild orbital and temporal wasting. Burn Absent Trauma Absent GI Symptoms Nausea Food Allergy No Minimum of two criteria Yes Interpretation of Weight Loss (severe) >7.5% in 3 months Body Fat Depletion Mild depletion (non-severe) Muscle Mass Mild Depletion (non-severe) #1 Nutrition Diagnosis Malnutrition Etiology ESRD Pancreatic cancer As Evidenced by Signs and Symptoms 13% wt loss in 2 months, mild orbital and temporal wasting Is patient on ventilator? No Is Patient Ambulatory and/or Out of Bed Yes REE-([place]-St. Jeor-ambulatory/OOB) [ 1803.594 NUTR.MSJOOB] Kcal/Kg value to use for calculation 35 Approximate Energy Requirements Using 2107 kcal/Kg Calculation Used for Recommendations Kcal/kg Additional Notes Protein needs: 72-90 g/day (1. 2-1.5 g/kg/day) Fluid needs: 9468-3675 ml/day Nutrition Intervention Change Diet Order: Continue current Teaching Recipient Patient Learning Readiness Poor Teaching Methods Discussion,Handout Response to Teaching Verbalize understanding Education Handouts Provided CHO counting Barriers to Learning Reading skills RD phone number provided Yes Patient aware of follow up options Yes Goal #1 Meet >80% of energy and protein needs Goal #2 Wt gain/maintenance Anticipated Discharge Needs: Renal Consistent CHO Follow-Up By: 06/05/19 Additional Comments Follow up for PO intakes
[2019-06-03] MEDS: INSULIN REGULAR, HUMAN 100 UNITS/1 ML SUB-Q SCH ×4 (11:37→21:50)
[2019-06-03] MEDS: INSULIN LISPRO 100 UNIT/ML SUB-Q SCH ×3 (11:37→17:19)
[2019-06-03] MEDS ORDERED: SODIUM CHLORIDE*PRIMING MACHINE ONLY FOR DIALYSIS MC ONE (11:43)
[2019-06-03] MEDS: EPOETIN ALFA 10,000 UNIT/1 ML INJ IV PRN (13:45)
[2019-06-03] MEDS: hydrALAZINE 100 MG TAB PO SCH ×3 (15:16→21:50)
[2019-06-03] MEDS: NEOMY 3.5 MG/BACIT 400 UNITS/POLY B 5000 UNITS/GM OINT PACKET TP SCH ×3 (15:22→21:49)
[2019-06-03] MEDS: carvediloL 25 MG TAB PO SCH ×2 (15:37→21:49)
[2019-06-03] MEDS: cloNIDine 0.1 MG TAB PO SCH ×2 (15:38→21:49)
[2019-06-03] MEDS: oxyCODONE /ACETAMINOPHEN 5-325MG TAB PO PRN ×2 (15:39→21:49)
[2019-06-03] MEDS: ASPIRIN EC 81 MG TAB PO SCH (15:40)
[2019-06-03] MEDS: FOLIC ACID/VIT B COMP W-C 1 MG (RENAL CAPS) PO SCH (15:40)
[2019-06-03] MEDS: amLODIPine 10 MG TAB PO SCH (17:14)
[2019-06-03] MEDS: INSULIN GLARGINE 100 UNITS/ML SUB-Q SCH (21:51)
[2019-06-04] MEDS: HEPARIN 5,000 UNIT/1 ML VIAL SUB-Q SCH ×3 (05:00→21:42)
[2019-06-04] MEDS: IPRATROPIUM/ALBUTEROL SULFATE 3 ML AMPUL.NEB IH SCH ×3 (07:52→20:58)
[2019-06-04] MEDS: NEOMY 3.5 MG/BACIT 400 UNITS/POLY B 5000 UNITS/GM OINT PACKET TP SCH ×3 (08:12→21:38)
[2019-06-04] MEDS: INSULIN REGULAR, HUMAN 100 UNITS/1 ML SUB-Q SCH ×4 (08:30→23:14)
[2019-06-04] MEDS: INSULIN LISPRO 100 UNIT/ML SUB-Q SCH ×3 (08:30→17:13)
[2019-06-04] MEDS: hydrALAZINE 100 MG TAB PO SCH ×3 (08:36→21:37)
[2019-06-04] MEDS: ASPIRIN EC 81 MG TAB PO SCH (09:12)
[2019-06-04] MEDS: amLODIPine 10 MG TAB PO SCH (09:12)
[2019-06-04] MEDS: FOLIC ACID/VIT B COMP W-C 1 MG (RENAL CAPS) PO SCH (09:12)
[2019-06-04] MEDS: carvediloL 25 MG TAB PO SCH ×2 (09:12→21:36)
[2019-06-04] MEDS: cloNIDine 0.1 MG TAB PO SCH ×2 (09:13→21:38)
[2019-06-04] MEDS: oxyCODONE /ACETAMINOPHEN 5-325MG TAB PO PRN ×2 (09:13→21:37)
[2019-06-04] MEDS ORDERED: INSULIN GLARGINE 100 UNITS/ML SUB-Q SCH (11:01)
--- NOTE | 2019-06-04 11:04 | Progress Note ---
Assessment and Plan Assessment and plan: --Acute respiratory failure/hypoxia Secondary to fluid overload, hemodialysis per schedule --Diabetes mellitus type 2; labile blood sugars Patient has fluctuating hypoglycemia hyperglycemia Decrease Lantus dose to 15 units daily at bedtime, Accu-Chek sliding scale coverage, ADA diet, adjust as needed --End stage renal disease with volume overload Hemodialysis per schedule, nephrology following --COPD with acute exacerbation; Continue oxygen nebulizers and supportive care --Hypertension, accelerated; Well-controlled, continue current antihypertensives and when necessary medications --Pancytopenia likely due to malgnancy; Closely monitor, follow oncologist upon discharge --Pancreatic cancer on chemotherapy; Follow oncologist upon discharge --Severe protein calorie malnutrition; Nutrition supplements and supportive care --DVT prophylaxis; heparin Monitor closely and adjust the management as needed Possible discharge home tomorrow if stable Plan of care reviewed with the patient and his nurse History Interval history: Patient seen and examined medical records reviewed Patient feels slightly better still complains of congestion and shortness of breath Secondary to fluid overload, Patient has labile blood sugars Vital signs reviewed Hospitalist Physical - Constitutional Vitals: Temp Pulse Resp BP Pulse Ox 98.8 F 72 18 165/63 100 06/04/19 05:01 06/04/19 09:12 06/04/19 08:00 06/04/19 09:12 06/04/19 09:49 General appearance: Present: no acute distress, well-nourished - EENT Eyes: Present: PERRL, EOM intact - Neck Neck: Present: supple, normal ROM - Respiratory Respiratory effort: normal Respiratory: bilateral: diminished, rales, negative: rhonchi, wheezing - Cardiovascular Rhythm: regular Heart Sounds: Present: S1 & S2 - Extremities Extremities: no ischemia, No edema - Abdominal General gastrointestinal: soft, non-tender, normal bowel sounds - Integumentary Integumentary: Present: clear, warm - Psychiatric Psychiatric: appropriate mood/affect, cooperative - Neurologic Neurologic: moves all extremities Results - Labs CBC & Chem 7: 06/03/19 10:21 06/03/19 10:21 Labs: Laboratory Last Values WBC 4.5 K/mm3 (4.5-11.0) 06/03/19 10:21 RBC 2.84 M/mm3 (3.65-5.03) L 06/03/19 10:21 Hgb 9.1 gm/dl (11.8-15.2) L 06/03/19 10:21 Hct 27.7 % (35.5-45.6) L 06/03/19 10:21 MCV 97 fl (84-94) H 06/03/19 10:21 MCH 32 pg (28-32) 06/03/19 10:21 MCHC 33 % (32-34) 06/03/19 10:21 RDW 16.4 % (13.2-15.2) H 06/03/19 10:21 Plt Count 91 K/mm3 (140-440) L 06/03/19 10:21 Lymph % (Auto) 17.5 % (13.4-35.0) 06/03/19 10:21 [place] % (Auto) 10.7 % (0.0-7.3) H 06/03/19 10:21 Eos % (Auto) 0.3 % (0.0-4.3) 06/03/19 10:21 Baso % (Auto) 0.3 % (0.0-1.8) 06/03/19 10:21 Lymph # 0.8 K/mm3 (1.2-5.4) L 06/03/19 10:21 [place] # 0.5 K/mm3 (0.0-0.8) 06/03/19 10:21 Eos # 0.0 K/mm3 (0.0-0.4) 06/03/19 10:21 Baso # 0.0 K/mm3 (0.0-0.1) 06/03/19 10:21 Add Manual Diff Complete 05/31/19 14:49 Total Counted 100 05/31/19 14:49 Seg Neutrophils % 71.2 % (40.0-70.0) H 06/03/19 10:21 Seg Neuts % (Manual) 52.0 % (40.0-70.0) 05/31/19 14:49 Band Neutrophils % 0 % 05/31/19 14:49 Lymphocytes % (Manual) 38.0 % (13.4-35.0) H 05/31/19 14:49 Reactive Lymphs % (Man) 0 % 05/31/19 14:49 Monocytes % (Manual) 8.0 % (0.0-7.3) H 05/31/19 14:49 Eosinophils % (Manual) 1.0 % (0.0-4.3) 05/31/19 14:49 Basophils % (Manual) 1.0 % (0.0-1.8) 05/31/19 14:49 Metamyelocytes % 0 % 05/31/19 14:49 Myelocytes % 0 % 05/31/19 14:49 Promyelocytes % 0 % 05/31/19 14:49 Blast Cells % 0 % 05/31/19 14:49 Nucleated RBC % Not Reportable 05/31/19 14:49 Seg Neutrophils # 3.2 K/mm3 (1.8-7.7) 06/03/19 10:21 Seg Neutrophils # Man 0.7 K/mm3 (1.8-7.7) L 05/31/19 14:49 Band Neutrophils # 0.0 K/mm3 05/31/19 14:49 Lymphocytes # (Manual) 0.5 K/mm3 (1.2-5.4) L 05/31/19 14:49 Abs React Lymphs (Man) 0.0 K/mm3 05/31/19 14:49 Monocytes # (Manual) 0.1 K/mm3 (0.0-0.8) 05/31/19 14:49 Eosinophils # (Manual) 0.0 K/mm3 (0.0-0.4) 05/31/19 14:49 Basophils # (Manual) 0.0 K/mm3 (0.0-0.1) 05/31/19 14:49 Metamyelocytes # 0.0 K/mm3 05/31/19 14:49 Myelocytes # 0.0 K/mm3 05/31/19 14:49 Promyelocytes # 0.0 K/mm3 05/31/19 14:49 Blast Cells # 0.0 K/mm3 05/31/19 14:49 WBC Morphology Not Reportable 05/31/19 14:49 Hypersegmented Neuts Not Reportable 05/31/19 14:49 Hyposegmented Neuts Not Reportable 05/31/19 14:49 Hypogranular Neuts Not Reportable 05/31/19 14:49 Smudge Cells Not Reportable 05/31/19 14:49 Toxic Granulation Not Reportable 05/31/19 14:49 Toxic Vacuolation Not Reportable 05/31/19 14:49 Dohle Bodies Not Reportable 05/31/19 14:49 Pelger-Huet Anomaly Not Reportable 05/31/19 14:49 Hakeem Rods Not Reportable 05/31/19 14:49 Platelet Estimate Not Reportable 05/31/19 14:49 Clumped Platelets Not Reportable 05/31/19 14:49 Plt Clumps, EDTA Not Reportable 05/31/19 14:49 Large Platelets Not Reportable 05/31/19 14:49 Giant Platelets Not Reportable 05/31/19 14:49 Platelet Satelliting Not Reportable 05/31/19 14:49 Plt Morphology Comment Not Reportable 05/31/19 14:49 RBC Morphology Normal 05/31/19 14:49 Dimorphic RBCs Not Reportable 05/31/19 14:49 Polychromasia Not Reportable 05/31/19 14:49 Hypochromasia Not Reportable 05/31/19 14:49 Poikilocytosis Not Reportable 05/31/19 14:49 Anisocytosis Not Reportable 05/31/19 14:49 Microcytosis Not Reportable 05/31/19 14:49 Macrocytosis Not Reportable 05/31/19 14:49 Spherocytes Not Reportable 05/31/19 14:49 Pappenheimer Bodies Not Reportable 05/31/19 14:49 Sickle Cells Not Reportable 05/31/19 14:49 Target Cells Not Reportable 05/31/19 14:49 Tear Drop Cells Not Reportable 05/31/19 14:49 Ovalocytes Not Reportable 05/31/19 14:49 Helmet Cells Not Reportable 05/31/19 14:49 [place] Bodies Not Reportable 05/31/19 14:49 [place] Rings Not Reportable 05/31/19 14:49 Angel Cells Not Reportable 05/31/19 14:49 Bite Cells Not Reportable 05/31/19 14:49 Crenated Cell Not Reportable 05/31/19 14:49 Elliptocytes Not Reportable 05/31/19 14:49 Acanthocytes (Spur) Not Reportable 05/31/19 14:49 Rouleaux Not Reportable 05/31/19 14:49 Hemoglobin C Crystals Not Reportable 05/31/19 14:49 Schistocytes Not Reportable 05/31/19 14:49 Malaria parasites Not Reportable 05/31/19 14:49 Rich Bodies Not Reportable 05/31/19 14:49 Hem Pathologist Commnt No 05/31/19 14:49 Sodium 130 mmol/L (137-145) L 06/03/19 10:21 Potassium 4.7 mmol/L (3.6-5.0) 06/03/19 10:21 Chloride 89.8 mmol/L (98-107) L 06/03/19 10:21 Carbon Dioxide 24 mmol/L (22-30) 06/03/19 10:21 Anion Gap 21 mmol/L 06/03/19 10:21 BUN 44 mg/dL (9-20) H 06/03/19 10:21 Creatinine 6.2 mg/dL (0.8-1.5) H 06/03/19 10:21 Estimated GFR 11 ml/min 06/03/19 10:21 BUN/Creatinine Ratio 7 % 06/03/19 10:21 Glucose 337 mg/dL (75-100) H 06/03/19 10:21 POC Glucose 319 (70-105) H 06/04/19 07:40 Calcium 9.5 mg/dL (8.4-10.2) 06/03/19 10:21 Total Bilirubin 0.90 mg/dL (0.1-1.2) 05/31/19 Unknown AST 137 units/L (5-40) H 05/31/19 Unknown ALT 116 units/L (7-56) H 05/31/19 Unknown Alkaline Phosphatase 118 units/L (35-129) 05/31/19 Unknown Total Protein 8.7 g/dL (6.3-8.2) H 05/31/19 Unknown Albumin 3.4 g/dL (3.9-5) L 05/31/19 Unknown Albumin/Globulin Ratio 0.6 % 05/31/19 Unknown Hepatitis A IgM Ab Non-reactive (NonReactive) 05/31/19 18:25 Hep Bs Antigen Non-reactive (Negative) 05/31/19 18:25 Hep B Core IgM Ab Non-reactive (NonReactive) 05/31/19 18:25 Hepatitis C Antibody Reactive (NonReactive) A 05/31/19 18:25 Active Medications - Current Medications Current Medications: Generic Name Dose Route Start Last Admin Trade Name Freq PRN Reason Stop Dose Admin Albuterol 2.5 mg 06/02/19 16:13 Proventil IH Q4HRT PRN Shortness Of Breath Albuterol/Ipratropium 1 ampul 06/02/19 20:00 06/04/19 07:52 Duoneb *Not For Prn Use* IH 1 ampul TIDRT KIKI Administration Amlodipine Besylate 10 mg 05/31/19 20:00 06/04/19 09:12 Amlodipine PO 10 mg DAILY KIKI Administration Aspirin 81 mg 06/01/19 10:00 06/04/19 09:12 Halfprin Ec PO 81 mg DAILY KIKI Administration Atorvastatin Calcium 40 mg 05/31/19 22:00 06/03/19 21:49 Lipitor PO 40 mg QHS [facility] Administration Carvedilol 25 mg 05/31/19 22:00 06/04/19 09:12 Coreg PO 25 mg BID KIKI Administration Clonidine HCl 0.1 mg 05/31/19 22:00 06/04/19 09:13 Catapres PO 0.1 mg BID KIKI Administration Epoetin True 10,000 unit 05/31/19 17:22 06/03/19 13:45 Procrit IV 10,000 unit PRESTON PRN Administration hemodialysis Heparin Sodium (Porcine) 5,000 unit 05/31/19 22:00 06/04/19 05:00 Heparin SUB-Q 5,000 unit Q8HR KIKI Administration Hydralazine HCl 100 mg 05/31/19 20:00 06/04/19 08:36 Apresoline PO 100 mg TID KIKI Administration Sodium Chloride 100 mls @ 999 mls/hr 06/01/19 10:30 Nacl 0.9% IV PRESTON PRN Hypotension Insulin Glargine 15 units 06/04/19 11:01 Lantus SUB-Q QHS KIKI Insulin Human Lispro 10 unit 06/01/19 07:30 06/04/19 08:30 Humalog SUB-Q 10 unit AC KIKI Administration Insulin Human Regular 0 units 05/31/19 22:00 06/04/19 08:30 Humulin R SUB-Q 6 units ACHS KIKI Administration Protocol Magnesium Hydroxide 30 ml 06/02/19 20:10 06/04/19 10:19 Milk Of Magnesia PO 30 ml QDAY PRN Administration Constipation Multivit/Ca Carb/B Cmplx/FA/Prenat 1 cap 06/01/19 10:00 06/04/19 09:12 Renal Caps PO 1 cap QDAY KIKI Administration Neomycin/Polymyxin/Bacitracin 1 applic 06/02/19 22:00 06/04/19 08:12 Triple Antibiotic TP 1 applic TID KIKI Administration Oxycodone/Acetaminophen 2 tab 05/31/19 18:58 06/04/19 09:13 Percocet 5/325 PO 2 tab Q6H PRN Administration Pain, Moderate (4-6) Nutrition/Malnutrition Assess - Dietary Evaluation Nutrition/Malnutrition Findings: Nutrition Notes Start: 06/01/19 14:58 Freq: Status: Active Protocol: Document 06/02/19 13:15 CT (Rec: 06/02/19 13:22 CT [id number]) Co-Sign 06/02/19 13:15 LP Nutrition Notes Need for Assessment generated from: Education Initial or Follow up Reassessment Current Diagnosis COPD,Diabetes,Hypertension, Respiratory Failure Other Pertinent Diagnosis ESRD on HD, Pancreatic Cancer on chemo, Anemia, Edema Current Diet Renal Consistent CHO Labs/Tests POC Glu 158 Pertinent Medications Humulin Lantus Lipitor Humalog Height 5 ft 9 in Weight 60.2 kg Usual Body Weight 68.039 kg [place] Body Weight (kg) 72.72 BMI 19.5 Intake Prior to Admission Poor Weight change and time frame 13% wt loss over 2 months Weight Status Underweight Subjective/Other Information Pt follow up for DM education and PO intakes. Pt stated that he does not read well when asked if he wanted diet education. Pt accepted verbal education and handout was left for pt son. Pt did not get breakfast even though he has a diet order. Pt stated last episode of nausea was (06/01). Pt reports that he gets dry mouth from his chemotherapy. Noted mild orbital and temporal wasting. Burn Absent Trauma Absent GI Symptoms Nausea Food Allergy No Minimum of two criteria Yes Interpretation of Weight Loss (severe) >7.5% in 3 months Body Fat Depletion Mild depletion (non-severe) Muscle Mass Mild Depletion (non-severe) #1 Nutrition Diagnosis Malnutrition Etiology ESRD Pancreatic cancer As Evidenced by Signs and Symptoms 13% wt loss in 2 months, mild orbital and temporal wasting Is patient on ventilator? No Is Patient Ambulatory and/or Out of Bed Yes REE-([place]-St. Jeor-ambulatory/OOB) [ 1803.594 NUTR.MSJOOB] Kcal/Kg value to use for calculation 35 Approximate Energy Requirements Using 2107 kcal/Kg Calculation Used for Recommendations Kcal/kg Additional Notes Protein needs: 72-90 g/day (1. 2-1.5 g/kg/day) Fluid needs: 9190-8090 ml/day Nutrition Intervention Change Diet Order: Continue current Teaching Recipient Patient Learning Readiness Poor Teaching Methods Discussion,Handout Response to Teaching Verbalize understanding Education Handouts Provided CHO counting Barriers to Learning Reading skills RD phone number provided Yes Patient aware of follow up options Yes Goal #1 Meet >80% of energy and protein needs Goal #2 Wt gain/maintenance Anticipated Discharge Needs: Renal Consistent CHO Follow-Up By: 06/05/19 Additional Comments Follow up for PO intakes
--- NOTE | 2019-06-04 17:53 | Progress Note ---
Assessment and Plan - Patient Problems (1) Pulmonary edema Current Visit: Yes Status: Acute Plan to address problem: Acute pulmonary edema secondary to fluid overload secondary to end-stage renal disease. Improved with dialysis. We will reestablish dry weight at his weight today =57.5Kg. discharge plan by primary attending (2) Pancreatic cancer Current Visit: Yes Status: Chronic Qualifiers: Plan to address problem: Continue chemotherapy at [place]. Follow-up with oncologist (3) Acute respiratory failure with hypoxia Current Visit: No Status: Acute Plan to address problem: Improving. Continue bronchodilator nebulizer treatments. Room air O2 sats 97%. Respiratory therapist. Should be okay to discharge home with metered-dose inhalers (4) End-stage renal disease needing dialysis Current Visit: No Status: Acute Plan to address problem: Hemodialysis on Wednesday, and Wednesday Subjective Date of service: 06/04/19 Principal diagnosis: End stage Renal disease with fluid overload Interval history: Patient seen lying in bed. He has no new complaints. Feeling better. Shortness of breath improving Objective - Exam Narrative Exam: Middle-aged -[place] female lying in bed in no acute distress HEENT: NCAT, pink oral mucous membrane Neck: Supple, no venous distention CVS: S1S2 RRR with no murmur, rub or gallop Chest: Breath sounds to be diminished with faint wheezes. Improving Abdomen: Protuberant, soft, nontender, no organomegaly, bowel sounds are present Extremities: trace edema Neuro: Awake, alert no focal deficits - Vital Signs Vital signs: Vital Signs - 12hr 06/04/19 06/04/19 06/04/19 07:31 08:00 09:12 Temperature 98.2 F Pulse Rate 70 72 Pulse Rate [ 74 Posterior Throughout] Respiratory 18 Rate Respiratory 18 Rate [Posterior Throughout] Blood Pressure 149/63 165/63 O2 Sat by Pulse 97 Oximetry 06/04/19 06/04/19 06/04/19 09:49 10:00 11:46 Temperature 98.1 F Pulse Rate 64 Pulse Rate [ Posterior Throughout] Respiratory 18 Rate Respiratory Rate [Posterior Throughout] Blood Pressure 122/54 O2 Sat by Pulse 100 100 97 Oximetry 06/04/19 06/04/19 12:00 14:43 Temperature Pulse Rate 69 Pulse Rate [ 65 Posterior Throughout] Respiratory Rate Respiratory 18 Rate [Posterior Throughout] Blood Pressure O2 Sat by Pulse Oximetry - Lab 06/03/19 10:21 06/03/19 10:21 Most recent lab results Calcium 9.5 mg/dL (8.4-10.2) 06/03/19 10:21 Medications & Allergies - Medications Allergies/Adverse Reactions: Allergies morphine Allergy (Verified 11/29/18 04:52) Swelling Home Medications: Home Medications Medication Instructions Recorded Confirmed Last Taken Type AtorvaSTATin [Lipitor] 40 mg PO QHS 04/27/17 05/01/19 12/20/18 History traMADoL [Ultram 50 MG tab] 50 mg PO Q6H PRN 04/27/17 05/01/19 12/20/18 History Amlodipine Besylate [Norvasc] 10 mg PO QDAY 08/04/18 05/01/19 12/20/18 History Aspirin [Adult Low Dose Aspirin EC] 81 mg PO DAILY 08/04/18 05/01/19 12/20/18 History Insulin Aspart (Nf) [NovoLOG 100 10 units SUB-Q PRN 08/04/18 05/01/19 12/20/18 History UNITS/ML VIAL] Insulin Detemir (Nf) [Levemir 30 units SUB-Q QHS 08/04/18 05/01/19 12/20/18 History Flextouch (Nf)] raNITIdine HCl [Zantac] 150 mg PO QDAY 08/04/18 05/01/19 12/20/18 History oxyCODONE /ACETAMINOPHEN [Percocet 2 tab PO Q6H PRN #30 tablet 12/23/18 05/03/19 04/28/19 Rx 5/325 mg] hydrALAZINE [Apresoline TAB] 100 mg PO TID #90 tab 12/24/18 05/01/19 Unknown Rx Vit B Comp No.3/Folic/C/Biotin 1 each PO DAILY 05/01/19 05/01/19 Unknown History [Carisa-Sonya Rx Tablet] carvediloL [Coreg] 25 mg PO BID 05/01/19 05/01/19 Unknown History cloNIDine [Catapres] 0.1 mg PO BID #60 tablet 05/03/19 Unknown Rx Active Medications: Generic Name Dose Route Start Last Admin Trade Name Freq PRN Reason Stop Dose Admin Albuterol 2.5 mg 06/02/19 16:13 Proventil IH Q4HRT PRN Shortness Of Breath Albuterol/Ipratropium 1 ampul 06/02/19 20:00 06/04/19 14:35 Duoneb *Not For Prn Use* IH 1 ampul TIDRT KIKI Administration Amlodipine Besylate 10 mg 05/31/19 20:00 06/04/19 09:12 Amlodipine PO 10 mg DAILY KIKI Administration Aspirin 81 mg 06/01/19 10:00 06/04/19 09:12 Halfprin Ec PO 81 mg DAILY KIKI Administration Atorvastatin Calcium 40 mg 05/31/19 22:00 06/03/19 21:49 Lipitor PO 40 mg QHS KIKI Administration Carvedilol 25 mg 05/31/19 22:00 06/04/19 09:12 Coreg PO 25 mg BID KIKI Administration Clonidine HCl 0.1 mg 05/31/19 22:00 06/04/19 09:13 Catapres PO 0.1 mg BID KIKI Administration Epoetin True 10,000 unit 05/31/19 17:22 06/03/19 13:45 Procrit IV 10,000 unit PRESTON PRN Administration hemodialysis Heparin Sodium (Porcine) 5,000 unit 05/31/19 22:00 06/04/19 13:59 Heparin SUB-Q 5,000 unit Q8HR KIKI Administration Hydralazine HCl 100 mg 05/31/19 20:00 06/04/19 13:59 Apresoline PO 100 mg TID KIKI Administration Sodium Chloride 100 mls @ 999 mls/hr 06/01/19 10:30 Nacl 0.9% IV PRESTON PRN Hypotension Insulin Glargine 15 units 06/04/19 11:01 Lantus SUB-Q QHS [facility] Insulin Human Lispro 10 unit 06/01/19 07:30 06/04/19 17:13 Humalog SUB-Q Not Given AC [facility] Insulin Human Regular 0 units 05/31/19 22:00 06/04/19 17:06 Humulin R SUB-Q [facility] Protocol Magnesium Hydroxide 30 ml 06/02/19 20:10 06/04/19 10:19 Milk Of Magnesia PO 30 ml QDAY PRN Administration Constipation Multivit/Ca Carb/B Cmplx/FA/Prenat 1 cap 06/01/19 10:00 06/04/19 09:12 Renal Caps PO 1 cap QDAY KIKI Administration Neomycin/Polymyxin/Bacitracin 1 applic 06/02/19 22:00 06/04/19 13:59 Triple Antibiotic TP 1 applic TID KIKI Administration Oxycodone/Acetaminophen 2 tab 05/31/19 18:58 06/04/19 09:13 Percocet 5/325 PO 2 tab Q6H PRN Administration Pain, Moderate (4-6)
[2019-06-04] MEDS ORDERED: FLEET ENEMA PR ONE (19:30)
[2019-06-05] MEDS: HEPARIN 5,000 UNIT/1 ML VIAL SUB-Q SCH ×2 (05:43→14:35)
[2019-06-05] MEDS: NEOMY 3.5 MG/BACIT 400 UNITS/POLY B 5000 UNITS/GM OINT PACKET TP SCH ×2 (08:00→13:30)
[2019-06-05] MEDS: hydrALAZINE 100 MG TAB PO SCH ×3 (08:34→21:05)
[2019-06-05] MEDS ORDERED: INSULIN GLARGINE 100 UNITS/ML SUB-Q SCH ×2 (08:48→20:00)
[2019-06-05] MEDS: INSULIN LISPRO 100 UNIT/ML SUB-Q SCH ×3 (09:00→17:00)
[2019-06-05] MEDS: INSULIN REGULAR, HUMAN 100 UNITS/1 ML SUB-Q SCH ×3 (09:18→17:00)
[2019-06-05] MEDS: FOLIC ACID/VIT B COMP W-C 1 MG (RENAL CAPS) PO SCH (09:19)
[2019-06-05] MEDS: ASPIRIN EC 81 MG TAB PO SCH (09:19)
[2019-06-05] MEDS: carvediloL 25 MG TAB PO SCH (09:21)
[2019-06-05] MEDS: oxyCODONE /ACETAMINOPHEN 5-325MG TAB PO PRN (09:21)
[2019-06-05] MEDS: cloNIDine 0.1 MG TAB PO SCH (09:24)
[2019-06-05] MEDS: amLODIPine 10 MG TAB PO SCH (09:24)
[2019-06-05] MEDS: IPRATROPIUM/ALBUTEROL SULFATE 3 ML AMPUL.NEB IH SCH ×4 (09:38→19:57)
[2019-06-05] MEDS ORDERED: SODIUM CHLORIDE 0.9% 100 ML IV PRN (10:33)
--- NOTE | 2019-06-05 10:36 | Progress Note ---
Assessment and Plan - Patient Problems (1) Pulmonary edema Current Visit: Yes Status: Acute Plan to address problem: Acute pulmonary edema secondary to fluid overload secondary to end-stage renal disease. Improved with dialysis. reestablished dry weight at 57.5Kg. discharge plan by primary attending (2) ESRD (end stage renal disease) Current Visit: Yes Status: Chronic Plan to address problem: cont HD on MWF this week due to holiday schedule at outpatient HD facility (3) Pancreatic cancer Current Visit: Yes Status: Chronic Qualifiers: Plan to address problem: Continue chemotherapy at [place]. Follow-up with oncologist (4) Acute respiratory failure with hypoxia Current Visit: No Status: Acute Plan to address problem: Improving. Continue bronchodilator nebulizer treatments. Should be okay to discharge home with metered-dose inhalers Subjective Date of service: 06/05/19 Principal diagnosis: End stage Renal disease with fluid overload Interval history: Pt awake, alert, in no acute distress Objective - Vital Signs Vital signs: Vital Signs - 12hr 06/04/19 06/05/19 06/05/19 22:44 00:00 03:53 Temperature 98.1 F 98.1 F Pulse Rate 74 74 66 Pulse Rate [ Throughout] Respiratory 16 18 Rate Respiratory Rate [ Throughout] Blood Pressure 151/65 134/68 O2 Sat by Pulse 97 100 Oximetry 06/05/19 06/05/19 06/05/19 07:34 08:00 09:21 Temperature 98.3 F Pulse Rate 68 71 Pulse Rate [ 86 Throughout] Respiratory 20 Rate Respiratory 20 Rate [ Throughout] Blood Pressure 152/69 147/63 O2 Sat by Pulse 96 Oximetry 06/05/19 06/05/19 09:24 09:43 Temperature Pulse Rate 71 Pulse Rate [ Throughout] Respiratory Rate Respiratory Rate [ Throughout] Blood Pressure 147/63 O2 Sat by Pulse 100 Oximetry - General Appearance General appearance: well-developed, appears stated age, chronically ill EENT: ATNC, PERRL, mucous membranes moist Neck: no JVD Respiratory: Present: Clear to Ascultation Cardiology: regular, S1S2 Gastrointestinal: normoactive bowel sounds Integumentary: no rash, other (no edema ) Neurologic: no focal deficit, alert and oriented x3, strength 5/5, CN 3-12 intact Psychiatric: mood/affect appropriate, cooperative - Lab 06/03/19 10:21 06/03/19 10:21 Most recent lab results Calcium 9.5 mg/dL (8.4-10.2) 06/03/19 10:21 Medications & Allergies - Medications Allergies/Adverse Reactions: Allergies morphine Allergy (Verified 11/29/18 04:52) Swelling Home Medications: Home Medications Medication Instructions Recorded Confirmed Last Taken Type AtorvaSTATin [Lipitor] 40 mg PO QHS 04/27/17 05/01/19 12/20/18 History traMADoL [Ultram 50 MG tab] 50 mg PO Q6H PRN 04/27/17 05/01/19 12/20/18 History Amlodipine Besylate [Norvasc] 10 mg PO QDAY 08/04/18 05/01/19 12/20/18 History Aspirin [Adult Low Dose Aspirin EC] 81 mg PO DAILY 08/04/18 05/01/19 12/20/18 History Insulin Aspart (Nf) [NovoLOG 100 10 units SUB-Q PRN 08/04/18 05/01/19 12/20/18 History UNITS/ML VIAL] Insulin Detemir (Nf) [Levemir 30 units SUB-Q QHS 08/04/18 05/01/19 12/20/18 History Flextouch (Nf)] raNITIdine HCl [Zantac] 150 mg PO QDAY 08/04/18 05/01/19 12/20/18 History oxyCODONE /ACETAMINOPHEN [Percocet 2 tab PO Q6H PRN #30 tablet 12/23/18 05/03/19 04/28/19 Rx 5/325 mg] hydrALAZINE [Apresoline TAB] 100 mg PO TID #90 tab 12/24/18 05/01/19 Unknown Rx Vit B Comp No.3/Folic/C/Biotin 1 each PO DAILY 05/01/19 05/01/19 Unknown History [Carisa-Sonya Rx Tablet] carvediloL [Coreg] 25 mg PO BID 05/01/19 05/01/19 Unknown History cloNIDine [Catapres] 0.1 mg PO BID #60 tablet 05/03/19 Unknown Rx Active Medications: Generic Name Dose Route Start Last Admin Trade Name Freq PRN Reason Stop Dose Admin Albuterol 2.5 mg 06/02/19 16:13 Proventil IH Q4HRT PRN Shortness Of Breath Albuterol/Ipratropium 1 ampul 06/02/19 20:00 06/05/19 09:38 Duoneb *Not For Prn Use* IH 1 ampul TIDRT KIKI Administration Amlodipine Besylate 10 mg 05/31/19 20:00 06/05/19 09:24 Amlodipine PO 10 mg DAILY KIKI Administration Aspirin 81 mg 06/01/19 10:00 06/05/19 09:19 Halfprin Ec PO 81 mg DAILY KIKI Administration Atorvastatin Calcium 40 mg 05/31/19 22:00 06/04/19 21:38 Lipitor PO 40 mg QHS KIKI Administration Carvedilol 25 mg 05/31/19 22:00 06/05/19 09:21 Coreg PO 25 mg BID KIKI Administration Clonidine HCl 0.1 mg 05/31/19 22:00 06/05/19 09:24 Catapres PO 0.1 mg BID KIKI Administration Epoetin True 10,000 unit 05/31/19 17:22 06/03/19 13:45 Procrit IV 10,000 unit PRESTON PRN Administration hemodialysis Heparin Sodium (Porcine) 5,000 unit 05/31/19 22:00 06/05/19 05:43 Heparin SUB-Q 5,000 unit Q8HR KIKI Administration Hydralazine HCl 100 mg 05/31/19 20:00 06/05/19 08:34 Apresoline PO 100 mg TID KIKI Administration Sodium Chloride 100 mls @ 999 mls/hr 06/01/19 10:30 Nacl 0.9% IV PRESTON PRN Hypotension Sodium Chloride 100 mls @ 999 mls/hr 06/05/19 10:33 Nacl 0.9% IV PRESTON PRN Hypotension Insulin Glargine 16 units 06/05/19 20:00 Lantus SUB-Q QPM@2000 [facility] Insulin Human Lispro 10 unit 06/01/19 07:30 06/05/19 09:00 Humalog SUB-Q 10 unit AC KIKI Administration Insulin Human Regular 0 units 05/31/19 22:00 06/05/19 09:18 Humulin R SUB-Q 2 units ACHS KIKI Administration Protocol Magnesium Hydroxide 30 ml 06/02/19 20:10 06/04/19 10:19 Milk Of Magnesia PO 30 ml QDAY PRN Administration Constipation Multivit/Ca Carb/B Cmplx/FA/Prenat 1 cap 06/01/19 10:00 06/05/19 09:19 Renal Caps PO 1 cap QDAY KIKI Administration Neomycin/Polymyxin/Bacitracin 1 applic 06/02/19 22:00 06/04/19 21:38 Triple Antibiotic TP 1 applic TID KIKI Administration Oxycodone/Acetaminophen 2 tab 05/31/19 18:58 06/05/19 09:21 Percocet 5/325 PO 2 tab Q6H PRN Administration Pain, Moderate (4-6)
--- NOTE | 2019-06-05 17:38 | Discharge Summary ---
Providers - Providers Date of Admission: 05/31/19 17:27 Date of discharge: 06/05/19 Attending physician: RUPAL ARELLANO 05/31/19 17:08 Consult to Physician [CONS] Urgent Comment: Consulting Provider: RAHAT TY Physician Instructions: Reason For Exam: esrd needing dialysis, chf Primary care physician: MARILYN MASTERS Hospitalization Reason for admission: shortness of breath and cough Condition: Stable Pertinent studies: Chest x-ray Procedures: Dialysis per schedule Hospital course: 63-year-old male with a past medical history end-stage renal disease on dialysis Wednesday, , and Wednesday, hypertension, diabetes, COPD, hepatitis C, pancreatic cancer on chemotherapy twice a month presents to the hospital complains of cough and SOB. Patient complains of intermittent wheezing, chronic orthopnea, and PND. No reports of fever or chest pain. Patient had dialysis yesterday and states he started to feel short of breath last night. Last chemotherapy was a week ago 05/24. Automation Application Engineer: Dr. Ty. CXR showed pulmonary edema. Nephrology consulted from ER. He is being admitted for further evaluation and Mx. Patient was admitted to the hospital, appropriately managed Evaluated by state epidemiologist, medications optimized, received hemodialysis per schedule Patient's symptoms significantly improved, Today patient is comfortable no new complaints vital signs stable physical examination is unremarkable cleared by nephrology for discharge and follow-up as outpatient Hemodynamically and clinically stable for discharge Discharge diagnoses; --Acute respiratory failure/hypoxia Secondary to fluid overload, hemodialysis per schedule --Diabetes mellitus type 2; labile blood sugars Patient has fluctuating hypoglycemia hyperglycemia Decrease Lantus dose to 15 units daily at bedtime, Accu-Chek sliding scale coverage, ADA diet, adjust as needed --End stage renal disease with volume overload Hemodialysis per schedule, nephrology following --COPD with acute exacerbation; Continue oxygen nebulizers and supportive care --Hypertension, accelerated; Well-controlled, continue current antihypertensives and when necessary medications --Pancytopenia likely due to malgnancy; Closely monitor, follow oncologist upon discharge --Pancreatic cancer on chemotherapy; Follow oncologist upon discharge --Severe protein calorie malnutrition; Nutrition supplements and supportive care --DVT prophylaxis; heparin Monitor closely and adjust the management as needed Stable at discharge Disposition: TO HOME OR SELFCARE Time spent for discharge: 32 min Core Measure Documentation - Palliative Care Palliative Care/ Comfort Measures: Not Applicable - Core Measures Any of the following diagnoses?: none Exam - Constitutional Vitals: Temp Pulse Resp BP Pulse Ox 97.5 F L 65 16 160/73 99 06/05/19 15:40 06/05/19 15:40 06/05/19 15:40 06/05/19 15:40 06/05/19 11:41 General appearance: Present: no acute distress, well-nourished - EENT Eyes: Present: PERRL, EOM intact - Neck Neck: Present: supple, normal ROM - Respiratory Respiratory effort: normal Respiratory: bilateral: diminished, negative: rales, rhonchi, wheezing - Cardiovascular Rhythm: regular Heart Sounds: Present: S1 & S2 - Extremities Extremities: no ischemia, No edema - Abdominal General gastrointestinal: Present: soft, non-tender, non-distended, normal bowel sounds - Integumentary Integumentary: Present: clear, warm - Musculoskeletal Musculoskeletal: strength equal bilaterally - Psychiatric Psychiatric: appropriate mood/affect, cooperative - Neurologic Neurologic: CNII-XII intact, moves all extremities Plan Activity: advance as tolerated Diet: diabetic, renal Additional Instructions: f/u renal and HD per schedule. Reduce Levamir insulin dose to 15 units Q HS,. Increase as needed Follow up with: PRIMARY CARE, [Referring] - 3-5 Days RAHAT TY MD [Staff Physician] - 7 Days Prescriptions: oxyCODONE /ACETAMINOPHEN [Percocet 5/325 mg] 1 tab PO BID PRN #10 tablet PRN Reason: Pain, Moderate (4-6) ALBUTEROL Inhaler (OR & NICU) [ProAir HFA Inhaler] 2 puff IH QID PRN #8.5 gram PRN Reason: Shortness Of Breath
[2019-06-05] MEDS: EPOETIN ALFA 10,000 UNIT/1 ML INJ IV PRN (19:00)
[2019-06-05] MEDS ORDERED: IPRATROPIUM/ALBUTEROL SULFATE 3 ML AMPUL.NEB IH ONE (19:26)
[2019-06-05 21:41] VITALS: BP 175/66
== END 2019-06-05 19:10 | disposition home or self-care (01) | DRG 640 ==
LOC: ED 13:52 → 4A 17:27
PROVIDERS: ADMIT Internal Medicine; ATTEND Internal Medicine
PROC: 5A1D70Z Performance of Urinary Filtration, Intermittent, Less than 6 Hours Per Day (ICD-10-PCS; principal; 2019-05-31)
PROC: 5A1D70Z Performance of Urinary Filtration, Intermittent, Less than 6 Hours Per Day (ICD-10-PCS; 2019-06-01)
PROC: 5A1D70Z Performance of Urinary Filtration, Intermittent, Less than 6 Hours Per Day (ICD-10-PCS; 2019-06-03)
PROC: 5A1D70Z Performance of Urinary Filtration, Intermittent, Less than 6 Hours Per Day (ICD-10-PCS; 2019-06-05)
DX: E87.79 Other fluid overload (principal); J96.01 Acute respiratory failure with hypoxia; N18.6 End stage renal disease; E43 Unspecified severe protein-calorie malnutrition; J44.1 Chronic obstructive pulmonary disease with (acute) exacerbation; C25.9 Malignant neoplasm of pancreas, unspecified; D61.818 Other pancytopenia; Z68.1 Body mass index [BMI] 19.9 or less, adult; I12.0 Hypertensive chronic kidney disease with stage 5 chronic kidney disease or end stage renal disease; E87.5 Hyperkalemia; F17.210 Nicotine dependence, cigarettes, uncomplicated; K59.00 Constipation, unspecified; E11.22 Type 2 diabetes mellitus with diabetic chronic kidney disease; Z82.49 Family history of ischemic heart disease and other diseases of the circulatory system; Z88.5 Allergy status to narcotic agent; Z79.82 Long term (current) use of aspirin; Z79.899 Other long term (current) drug therapy; Z79.4 Long term (current) use of insulin; Z83.3 Family history of diabetes mellitus; Z80.3 Family history of malignant neoplasm of breast; Z80.8 Family history of malignant neoplasm of other organs or systems; Z99.2 Dependence on renal dialysis
CPT/HCPCS: 36415; 71046; 80048; 80053; 80074; 82962; 84132; 85007; 85025; 93005; 93010; 94640; 94760; G0378; A6250; A9270-GY; J0610; J0885; J1170; J1644; J1815; J2405; J7030

== ENCOUNTER 2019-08-17 06:44 | Observation (INO) | payer MEDICARE ==
--- NOTE | 2019-08-17 07:25 | Emergency Department Report ---
ED General Adult HPI - General Chief complaint: High BP Stated complaint: HIGH B/P Time Seen by Provider: 08/17/19 07:22 Source: patient, EMS Mode of arrival: Stretcher Limitations: No Limitations - History of Present Illness Initial comments: 63-year-old man who was at dialysis this morning and found to be hypertensive. He was given clonidine 0.2 mg. His blood pressure is now improved. He states he does have some shortness of breath but not significantly now at rest. He felt like his heart had a brief episode of racing while the nurse was taking his blood pressure at dialysis. I do not believe he was on a personnel monitor. This resolved after less than a minute. He does not complain of chest pain. He has not had any recent fever or chills. He states his legs are a bit swollen. He has chronic abdominal pain secondary to pancreatic carcinoma. He states he did not run out of his pain medicine. He states he is compliant with his blood pressure medicine. Dr. Ty is his renal physician. The patient did have a recent CT angiogram which was negative. A plain CAT scan of the abdomen and pelvis did not show a pancreatic mass. As per his recent discharge summary: 63-year-old -[place] male with known history of hepatitis C, diabetes mellitus ,pancreatic cancer and end-stage renal disease on dialysis on Tuesdays and Saturdays presenting to the emergency room today complaining of abdominal pain. He has also been having some nausea and vomiting, shortness of breath but denies any chest pain. Discharge diagnosis: --End-stage renal disease; HD per scheduled,Renal following --Hypertensive urgency; POA adjusted antihypertensives for better control iv hydralazine given as needed --Elevated D dimers; CTA chest negative PE --Non-ST elevation LA [probably type II ] She has no chest pain or shortness of breath --Abdominal pain; present on admission Significantly improved, supportive care Patient has history of pancreatic cancer --Type 2 diabetes mellitus; uncontrolled Probably secondary to noncompliance, Accu-Chek sliding scale coverage and ADA diet Long-acting insulin as needed, check A1c Diabetic and nutrition education --DVT prophylaxis; heparin renal dose --Full code -: unknown Location: abdomen (chronic abdominal pain) Quality: aching Consistency: intermittent Improves with: none Worsens with: none Associated Symptoms: denies other symptoms, shortness of breath (on exertion) Treatments Prior to Arrival: other (clonidine) - Related Data Home Medications Medication Instructions Recorded Confirmed Last Taken AtorvaSTATin [Lipitor] 40 mg PO QHS 04/27/17 05/01/19 12/20/18 Amlodipine Besylate [Norvasc] 10 mg PO QDAY 08/04/18 05/01/19 12/20/18 Aspirin [Adult Low Dose Aspirin EC] 81 mg PO DAILY 08/04/18 05/01/19 12/20/18 raNITIdine HCl [Zantac] 150 mg PO QDAY 08/04/18 05/01/19 12/20/18 Vit B Comp No.3/Folic/C/Biotin 1 each PO DAILY 05/01/19 05/01/19 Unknown [Carisa-Sonya Rx Tablet] carvediloL [Coreg] 25 mg PO BID 05/01/19 05/01/19 Unknown Previous Rx's Medication Instructions Recorded Last Taken Type hydrALAZINE [Apresoline TAB] 100 mg PO TID #90 tab 12/24/18 Unknown Rx Albuterol INH(or & Nicu Only) 2 puff IH QID PRN #8.5 gram 06/05/19 Unknown Rx [ProAir HFA Inhaler] Doxazosin [Cardura] 1 mg PO QDAY #30 tablet 07/20/19 Unknown Rx Insulin Aspart (Nf) [NovoLOG 100 5 units SUB-Q PRN 30 Days 07/20/19 12/20/18 Rx UNITS/ML VIAL] Insulin Detemir (Nf) [Levemir 15 units SUB-Q QHS 30 Days 07/20/19 12/20/18 Rx Flextouch (Nf)] cloNIDine [Catapres] 0.1 mg PO BID #60 tablet 07/20/19 Unknown Rx oxyCODONE /ACETAMINOPHEN [Percocet 1 tab PO BID PRN #30 tablet 07/20/19 Unknown Rx 5/325 mg] Allergies Allergy/AdvReac Type Severity Reaction Status Date / Time morphine Allergy Swelling Verified 07/17/19 17:24 ED Review of Systems ROS: Stated complaint: HIGH B/P Other details as noted in HPI Constitutional: denies: chills, fever Eyes: denies: eye pain, eye discharge, vision change ENT: denies: ear pain, throat pain Respiratory: SOB with exertion. denies: cough, shortness of breath, wheezing Cardiovascular: palpitations. denies: chest pain Endocrine: no symptoms reported Gastrointestinal: denies: abdominal pain, nausea, diarrhea Genitourinary: denies: urgency, dysuria Musculoskeletal: denies: back pain, joint swelling, arthralgia Skin: denies: rash, lesions Neurological: denies: headache, weakness, paresthesias Psychiatric: denies: anxiety, depression Hematological/Lymphatic: denies: easy bleeding, easy bruising ED Past Medical Hx - Past Medical History Previous Medical History?: Yes Hx Hypertension: Yes Hx Congestive Heart Failure: No Hx Diabetes: Yes (Type 2) Hx Liver Disease: Yes (HEP C) Hx Renal Disease: Yes (ESRD T--) Hx Seizures: No Hx Kidney Stones: No Hx Asthma: No Hx COPD: Yes Hx HIV: No Additional medical history: Dialysis T Sat. TAKING CHEMO. pancreatic cancer - Surgical History Past Surgical History?: Yes Additional Surgical History: graft to right leg - Social History Smoking Status: Current Every Day Smoker Substance Use Type: Marijuana - Medications Home Medications: Home Medications Medication Instructions Recorded Confirmed Last Taken Type AtorvaSTATin [Lipitor] 40 mg PO QHS 04/27/17 05/01/19 12/20/18 History Amlodipine Besylate [Norvasc] 10 mg PO QDAY 08/04/18 05/01/19 12/20/18 History Aspirin [Adult Low Dose Aspirin EC] 81 mg PO DAILY 08/04/18 05/01/19 12/20/18 History raNITIdine HCl [Zantac] 150 mg PO QDAY 08/04/18 05/01/19 12/20/18 History hydrALAZINE [Apresoline TAB] 100 mg PO TID #90 tab 12/24/18 05/01/19 Unknown Rx Vit B Comp No.3/Folic/C/Biotin 1 each PO DAILY 05/01/19 05/01/19 Unknown History [Carisa-Sonya Rx Tablet] carvediloL [Coreg] 25 mg PO BID 05/01/19 05/01/19 Unknown History Albuterol INH(or & Nicu Only) 2 puff IH QID PRN #8.5 gram 06/05/19 Unknown Rx [ProAir HFA Inhaler] Doxazosin [Cardura] 1 mg PO QDAY #30 tablet 07/20/19 Unknown Rx Insulin Aspart (Nf) [NovoLOG 100 5 units SUB-Q PRN 30 Days 07/20/19 05/01/19 12/20/18 Rx UNITS/ML VIAL] Insulin Detemir (Nf) [Levemir 15 units SUB-Q QHS 30 Days 07/20/19 05/01/19 12/20/18 Rx Flextouch (Nf)] cloNIDine [Catapres] 0.1 mg PO BID #60 tablet 07/20/19 Unknown Rx oxyCODONE /ACETAMINOPHEN [Percocet 1 tab PO BID PRN #30 tablet 07/20/19 Unknown Rx 5/325 mg] ED Physical Exam - General Limitations: No Limitations General appearance: alert, in no apparent distress, cachectic (somewhat) - Head Head exam: Present: atraumatic, normocephalic - Eye Eye exam: Present: normal appearance. Absent: scleral icterus - ENT ENT exam: Present: mucous membranes moist - Neck Neck exam: Present: normal inspection. Absent: tenderness, meningismus - Respiratory Respiratory exam: Present: normal lung sounds bilaterally. Absent: respiratory distress - Cardiovascular Cardiovascular Exam: Present: regular rate, normal rhythm. Absent: systolic murmur, diastolic murmur, rubs, gallop - GI/Abdominal GI/Abdominal exam: Present: soft, distended (somewhat), normal bowel sounds. Absent: tenderness, guarding, rebound, rigid - Rectal Rectal exam: Present: deferred - Extremities Exam Extremities exam: Present: normal inspection, other (mild pretibial edema ) - Back Exam Back exam: Present: normal inspection - Neurological Exam Neurological exam: Present: alert, oriented X3, CN II-XII intact. Absent: motor sensory deficit - Psychiatric Psychiatric exam: Present: normal affect, normal mood - Skin Skin exam: Present: warm, dry, intact, normal color. Absent: rash ED Course Vital Signs 08/17/19 08/17/19 08/17/19 06:50 07:16 07:30 Temperature 98.1 F Pulse Rate 77 73 73 Respiratory 21 12 10 L Rate Blood Pressure 196/83 200/87 178/85 Blood Pressure 196/83 [Left] O2 Sat by Pulse 94 98 95 Oximetry 08/17/19 08/17/19 08/17/19 07:46 08:00 08:16 Temperature Pulse Rate 78 76 72 Respiratory 14 17 12 Rate Blood Pressure 178/85 186/85 186/85 Blood Pressure [Left] O2 Sat by Pulse 97 96 99 Oximetry 08/17/19 08/17/19 08/17/19 08:30 08:46 09:00 Temperature Pulse Rate 76 71 71 Respiratory 20 12 11 L Rate Blood Pressure 186/85 186/85 163/72 Blood Pressure [Left] O2 Sat by Pulse 97 98 95 Oximetry 08/17/19 08/17/19 09:16 09:30 Temperature Pulse Rate 74 75 Respiratory 13 13 Rate Blood Pressure 163/72 163/72 Blood Pressure [Left] O2 Sat by Pulse 98 98 Oximetry - Reevaluation(s) Reevaluation #1: Discussed with Dr. Fall. He requested admission to the hospitalist service for dialysis. 08/17/19 11:48 ED Medical Decision Making - Lab Data Result diagrams: 08/17/19 08:08 Laboratory Results - last 24 hr 08/17/19 08/17/19 08/17/19 08:08 08:08 08:08 PT 15.1 H INR 1.17 H APTT 34.5 Sodium 139 Potassium 4.4 Chloride 95.9 L Carbon Dioxide 23 Anion Gap 25 BUN 40 H Creatinine 6.0 H Estimated GFR 12 BUN/Creatinine Ratio 7 Glucose 157 H Calcium 9.1 Phosphorus 3.60 Magnesium 1.90 Total Bilirubin 0.80 Direct Bilirubin 0.4 H Indirect Bilirubin 0.4 AST 24 ALT 13 Alkaline Phosphatase 91 Ammonia 28.0 NT-Pro-B Natriuret Pep > 94267 H Total Protein 7.6 Albumin 3.3 L Albumin/Globulin Ratio 0.8 Lipase 9 L Critical care attestation.: If time is entered above; I have spent that time in minutes in the direct care of this critically ill patient, excluding procedure time. ED Disposition Clinical Impression: End-stage renal disease needing dialysis Acute on chronic congestive heart failure Qualifiers: Heart failure type: unspecified Qualified Code(s): I50.9 - Heart failure, unspecified Disposition: OP ADMIT IP TO THIS HOSP Is pt being admited?: Yes Does the pt Need Aspirin: Yes Condition: Stable Referrals: PRIMARY CARE, [Primary Care Provider] - 3-5 Days Time of Disposition: 11:49
[2019-08-17] MEDS ORDERED: oxyCODONE /ACETAMINOPHEN 5-325MG TAB PO ONE ×3 (07:42→19:00)
--- NOTE | 2019-08-17 08:05 | XRay Report ---
CHEST 1 VIEW 0738 hours INDICATION / CLINICAL INFORMATION: hypertension. COMPARISON: 07/17/2019 FINDINGS: SUPPORT DEVICES: Right [id number] remains in good position. HEART / MEDIASTINUM: Borderline heart size. Heart size appears slightly increased since the previous exam. LUNGS / PLEURA: Mild pulmonary venous congestion has developed. There is minor subpleural atelectasis at the left lung base. No evidence for pneumonia, pleural fluid or pneumothorax. ADDITIONAL FINDINGS: No significant additional findings. IMPRESSION: Borderline heart size. Mild pulmonary venous congestion. Signer Name: Dane Zaidi Jr, MD Signed: 08/17/2019 8:00 AM Workstation Name: [id number]
[2019-08-17] MEDS ORDERED: POTASSIUM CHLORIDE ER 20 MEQ TAB PO ONE (09:06)
[2019-08-17 09:28] LABS: Alanine Aminotransferase 13 units/L (7-56); Albumin 3.3 g/dL (3.9-5); BUN/Creatinine Ratio 7; Bilirubin,Direct 0.4 mg/dL (0-0.2); Blood Urea Nitrogen 40 mg/dL (9-20); Calcium 9.1 mg/dL (8.4-10.2); Hemolysis Index 4
[2019-08-17 09:39] LABS: INR 1.17 (0.87-1.13)
[2019-08-17 09:40] LABS: Partial Thromboplastin Time 34.5 Sec. (24.2-36.6)
[2019-08-17] MEDS ORDERED: SODIUM CHLORIDE 0.9% 100 ML IV PRN ×2 (10:30→13:00)
[2019-08-17] MEDS ORDERED: ASPIRIN 81 MG TAB CHEW PO ONE (11:49)
[2019-08-17 12:36] LABS: Basophils % (Auto) 0.5 % (0.0-1.8); Eosinophils # (Auto) 0.1 K/mm3 (0.0-0.4); Eosinophils % (Auto) 0.8 % (0.0-4.3); Hematocrit 29.5 % (35.5-45.6); Hemoglobin 9.7 gm/dl (11.8-15.2); Lymphocytes # (Auto) 0.8 K/mm3 (1.2-5.4); Lymphocytes % (Auto) 11.5 % (13.4-35.0); Mean Corpuscular HGB Conc 33 % (32-34); Mean Corpuscular Volume 98 fl (84-94); Monocytes # (Auto) 0.5 K/mm3 (0.0-0.8); Monocytes % (Auto) 6.7 % (0.0-7.3); Platelet Count 111 K/mm3 (140-440); Red Cell Distribution Width 16.5 % (13.2-15.2)
[2019-08-17] MEDS ORDERED: ONDANSETRON 4 MG/2 ML INJ IV PRN ×2 (13:00→14:30)
--- NOTE | 2019-08-17 13:59 | History and Physical Report ---
History of Present Illness Date of admission: 08/17/19 11:11 Chief complaint: I could not get dialysis History of present illness: 63 YO Male with ESRD on HD (T,R,Sa), Pancreatic Cancer, HTN, COPD, Nicotine Dependence, Anemia, Severe Malnutrition presents to ED for evaluation. Pt states that he went to his routine dialysis session but was unable to undergo dialysis due to elevated blood pressure. Patient was found to have a systolic blood pressure of 200. EMS was notified and upon arrival the patient was found to be in distress and subsequently transported to [facility] for further care and evaluation. Patient seen and evaluated in the emergency department. Lab and imaging studies reviewed. Patient found to have end-stage renal disease as well as hypertensive urgency. Patient restarted on prehospital antihypertensive medication. Nephrology consulted in ED. Patient treated with urgent dialysis. Patient placed in observation status and admitted to medical floor for medical stabilization and blood pressure optimization. Patient denies fever, chills, chest pain, palpitations, NVD, prolonged travel/immobility, unilateral leg swelling, Individual/Family history of DVT/PE/Bleeding/Blood clotting Disorder. Prior admission on 07/18/2019 reviewed. All listed mediation reconciled at time of admission. Past History Past Medical History: cancer, COPD, ESRD, hypertension Past Surgical History: Other (Right leg surgery, dialysis access) Social history: single. denies: smoking, alcohol abuse, prescription drug abuse Family history: no significant family history Medications and Allergies Allergies Allergy/AdvReac Type Severity Reaction Status Date / Time morphine Allergy Swelling Verified 07/17/19 17:24 Home Medications Medication Instructions Recorded Confirmed Last Taken Type AtorvaSTATin [Lipitor] 40 mg PO QHS 04/27/17 05/01/19 12/20/18 History Amlodipine Besylate [Norvasc] 10 mg PO QDAY 08/04/18 05/01/19 12/20/18 History Aspirin [Adult Low Dose Aspirin EC] 81 mg PO DAILY 08/04/18 05/01/19 12/20/18 History raNITIdine HCl [Zantac] 150 mg PO QDAY 08/04/18 05/01/19 12/20/18 History hydrALAZINE [Apresoline TAB] 100 mg PO TID #90 tab 12/24/18 05/01/19 Unknown Rx Vit B Comp No.3/Folic/C/Biotin 1 each PO DAILY 05/01/19 05/01/19 Unknown History [Carisa-Sonya Rx Tablet] carvediloL [Coreg] 25 mg PO BID 05/01/19 05/01/19 Unknown History Albuterol INH(or & Nicu Only) 2 puff IH QID PRN #8.5 gram 06/05/19 Unknown Rx [ProAir HFA Inhaler] Doxazosin [Cardura] 1 mg PO QDAY #30 tablet 07/20/19 Unknown Rx Insulin Aspart (Nf) [NovoLOG 100 5 units SUB-Q PRN 30 Days 07/20/19 05/01/19 12/20/18 Rx UNITS/ML VIAL] Insulin Detemir (Nf) [Levemir 15 units SUB-Q QHS 30 Days 07/20/19 05/01/19 12/20/18 Rx Flextouch (Nf)] cloNIDine [Catapres] 0.1 mg PO BID #60 tablet 07/20/19 Unknown Rx oxyCODONE /ACETAMINOPHEN [Percocet 1 tab PO BID PRN #30 tablet 07/20/19 Unknown Rx 5/325 mg] Active Meds: Active Medications Sodium Chloride (Nacl 0.9%) 100 mls @ 999 mls/hr IV PRESTON PRN PRN Reason: Hypotension Ondansetron HCl (Zofran) 4 mg IV PRESTON PRN PRN Reason: Nausea Last Admin: 08/17/19 13:02 Dose: 4 mg Documented by: Review of Systems Constitutional: no weight loss, no fever, no chills Ears, nose, mouth and throat: no ear pain, no ear discharge, no tinnitis, no decreased hearing, no nose pain, no nasal congestion, no nasal discharge Cardiovascular: no chest pain, no orthopnea, no palpitations, no rapid/irregular heart beat, no syncope Respiratory: no cough, no cough with sputum, no excessive sputum, no hemoptysis Gastrointestinal: no abdominal pain, no vomiting, no hematemesis Genitourinary Male: no dysuria, no flank pain, no urinary frequency, no nocturia, no incontinence, no erectile dysfunction (But and that he wants to go) Rectal: no pain, no incontinence, no bleeding Musculoskeletal: no neck pain, no shooting arm pain, no arm numbness/tingling, no low back pain, no shooting leg pain (Hospital) Integumentary: no rash, no pruritis, no sores, no wounds, no boils Neurological: no transient paralysis, no weakness, no parathesias, no numbness, no seizures, no syncope Psychiatric: no anxiety, no change in sleep habits, no insomnia, no change in appetite Endocrine: no cold intolerance, no polyphagia, no polydipsia, no polyuria Hematologic/Lymphatic: no easy bruising, no easy bleeding, no lymphedema Allergic/Immunologic: no allergic rhinitis, no wheezing, no angioedema Exam - Constitutional Vitals: Temp Pulse Resp BP Pulse Ox 97.8 F 73 16 178/89 97 08/17/19 12:10 08/17/19 13:45 08/17/19 12:10 08/17/19 13:45 08/17/19 12:00 General appearance: Present: mild distress - EENT Eyes: Present: PERRL ENT: hearing intact, clear oral mucosa - Neck Neck: Present: supple, normal ROM - Respiratory Respiratory effort: normal Respiratory: bilateral: CTA - Cardiovascular Heart Sounds: Present: S1 & S2. Absent: rub, click - Extremities Extremities: pulses symmetrical, No edema Peripheral Pulses: within normal limits - Abdominal General gastrointestinal: Present: soft, non-tender, non-distended, normal bowel sounds Male genitourinary: Present: normal - Integumentary Integumentary: Present: clear, warm, dry - Musculoskeletal Musculoskeletal: gait normal, strength equal bilaterally - Psychiatric Psychiatric: appropriate mood/affect, intact judgment & insight - Neurologic Neurologic: CNII-XII intact, moves all extremities Results - Labs CBC & Chem 7: 08/17/19 11:51 08/17/19 08:08 Labs: Abnormal lab results 08/17/19 08/17/19 08/17/19 Range/Units 08:08 08:08 11:51 RBC 3.00 L (3.65-5.03) M/mm3 Hgb 9.7 L (11.8-15.2) gm/dl Hct 29.5 L (35.5-45.6) % MCV 98 H (84-94) fl RDW 16.5 H (13.2-15.2) % Plt Count 111 L (140-440) K/mm3 Lymph % (Auto) 11.5 L (13.4-35.0) % Lymph # 0.8 L (1.2-5.4) K/mm3 Seg Neutrophils % 80.5 H (40.0-70.0) % PT 15.1 H (12.2-14.9) Sec. INR 1.17 H (0.87-1.13) Chloride 95.9 L (98-107) mmol/L BUN 40 H (9-20) mg/dL Creatinine 6.0 H (0.8-1.5) mg/dL Glucose 157 H (75-100) mg/dL Direct Bilirubin 0.4 H (0-0.2) mg/dL NT-Pro-B Natriuret Pep > 17921 H (0-900) pg/mL Albumin 3.3 L (3.9-5) g/dL Lipase 9 L (13-60) units/L Assessment and Plan - Patient Problems (1) End-stage renal disease needing dialysis Current Visit: Yes Status: Acute Plan to address problem: Nephrology consulted in ED, strict I's/O, daily weight, monitor urine output every shift, avoid nephrotoxic agents (2) Hypertensive urgency Current Visit: No Status: Acute Plan to address problem: Monitor blood pressure every shift, IV hydralazine as needed, supportive care (3) COPD (chronic obstructive pulmonary disease) Current Visit: Yes Status: Acute Qualifiers: COPD type: unspecified COPD Qualified Code(s): J44.9 - Chronic obstructive pulmonary disease, unspecified Plan to address problem: Supplemental oxygen, nebulizer therapy, pulse oximetry, noninvasive positive pressure ventilation as clinically indicated. (4) Nicotine dependence Current Visit: Yes Status: Acute Qualifiers: Nicotine product type: cigarettes Substance use status: in withdrawal Qualified Code(s): F17.213 - Nicotine dependence, cigarettes, with withdrawal Plan to address problem: Supportive care, smoking cessation counseling +15 minutes (5) Severe malnutrition Current Visit: Yes Status: Acute Plan to address problem: Balanced diet, increase protein intake, (6) DVT prophylaxis Current Visit: No Status: Acute Plan to address problem: SCD to bilateral lower extremities while in bed, patient ambulatory.
[2019-08-17] MEDS ORDERED: ACETAMINOPHEN 325 MG TAB PO PRN (14:30)
[2019-08-17] MEDS ORDERED: ALBUTEROL 2.5 MG/3 ML NEBU IH PRN (16:00)
[2019-08-17] MEDS ORDERED: SODIUM CHLORIDE*PRIMING MACHINE ONLY FOR DIALYSIS MC ONE (16:40)
[2019-08-17] MEDS: hydrALAZINE 20 MG/1 ML INJ IV PRN (16:50)
[2019-08-17] MEDS ORDERED: oxyCODONE /ACETAMINOPHEN 5-325MG TAB PO PRN (20:20)
[2019-08-17] MEDS ORDERED: amLODIPine 5 MG TAB PO SCH (20:20)
[2019-08-17] MEDS: cloNIDine 0.1 MG TAB PO SCH (22:29)
[2019-08-17] MEDS: carvediloL 25 MG TAB PO SCH (22:29)
[2019-08-17] MEDS: amLODIPine 10 MG TAB PO SCH (22:32)
[2019-08-17] MEDS: hydrALAZINE 100 MG TAB PO SCH (22:34)
[2019-08-18] MEDS: hydrALAZINE 20 MG/1 ML INJ IV PRN (00:24)
[2019-08-18] MEDS: hydrALAZINE 100 MG TAB PO SCH ×2 (09:24→14:42)
[2019-08-18] MEDS: amLODIPine 10 MG TAB PO SCH (09:26)
[2019-08-18] MEDS: carvediloL 25 MG TAB PO SCH (09:26)
[2019-08-18] MEDS: cloNIDine 0.1 MG TAB PO SCH (09:27)
[2019-08-18] MEDS ORDERED: ASPIRIN EC 81 MG TAB PO SCH (10:00)
[2019-08-18] MEDS ORDERED: FOLIC ACID/VIT B COMP W-C 1 MG (RENAL CAPS) PO SCH (10:00)
[2019-08-18] MEDS ORDERED: NON-FORMULARY EACH (Ranitidine Hcl [Zantac] 150 MG) PO SCH (10:00)
[2019-08-18] MEDS ORDERED: [UNRECOGNIZED DRUG - REMARK] PO SCH (10:00)
[2019-08-18] MEDS ORDERED: FAMOTIDINE 20 MG TAB PO SCH (10:00)
[2019-08-18] MEDS ORDERED: DOXAZOSIN 1 MG TAB PO SCH (10:00)
[2019-08-18 13:18] LABS: Hepatitis B Surface Antigen Non-Reactive (Negative); Hepatitis C Virus Antibody Reactive (NonReactive)
[2019-08-18] MEDS ORDERED: DEXTROSE 50% IN WATER (25GM) 50 ML SYRINGE IV PRN (13:44)
--- NOTE | 2019-08-18 13:46 | Discharge Summary ---
Providers - Providers Date of Admission: 08/17/19 11:11 Attending physician: OKSANA HOWARD MD Primary care physician: ELISHA SALAS MD Hospitalization Condition: Stable Hospital course: 63-year-old man who was at his dialysis center for routine dialysis, but was sent to the ER for having elevated blood pressure. His BP was over 200.He arrived in the hospital, he received dialysis and blood pressure medications. After which his blood pressure improved. Patient claims that he is compliant at all his medications. Tobacco abuse/dependence Smoking cessation counseling performed for 10 minutes, nicotine patches when necessary Preventative health counseling performed for 17 minutes Diagnosis Hypertensive urgency ESRD Nicotine dependence Severe malnutrition Chronic COPD Chronic hep C Pancreatic cancer Ongoing marijuana abuse Type 2 DM Disposition: TO HOME OR SELFCARE Time spent for discharge: 35 minutes Core Measure Documentation - Palliative Care Palliative Care/ Comfort Measures: Not Applicable - Core Measures Any of the following diagnoses?: none Exam - Constitutional Vitals: Temp Pulse Resp BP Pulse Ox 98.8 F 71 20 148/63 96 08/18/19 11:40 08/18/19 11:40 08/18/19 11:40 08/18/19 11:40 08/18/19 11:40 General appearance: Present: no acute distress - EENT Eyes: Present: PERRL ENT: hearing intact, clear oral mucosa - Neck Neck: Present: supple, normal ROM - Respiratory Respiratory effort: normal Respiratory: bilateral: CTA - Cardiovascular Heart Sounds: Present: S1 & S2. Absent: rub, click - Extremities Extremities: pulses symmetrical, No edema Peripheral Pulses: within normal limits - Abdominal General gastrointestinal: Present: soft, non-tender, non-distended, normal bowel sounds Male genitourinary: Present: normal - Integumentary Integumentary: Present: clear, warm, dry - Musculoskeletal Musculoskeletal: gait normal, strength equal bilaterally - Psychiatric Psychiatric: appropriate mood/affect, intact judgment & insight - Neurologic Neurologic: CNII-XII intact, moves all extremities Plan Follow up with: PRIMARY CARE, [Primary Care Provider] - 3-5 Days Prescriptions: amLODIPine 10 mg PO DAILY #90 tablet cloNIDine [Catapres] 0.1 mg PO TID #90 tablet oxyCODONE /ACETAMINOPHEN [Percocet 5/325 mg] 1 tab PO BID PRN #30 tablet PRN Reason: Pain, Moderate (4-6)
[2019-08-18] MEDS ORDERED: INSULIN LISPRO 100 UNIT/ML SUB-Q SCH (15:00)
[2019-08-18] MEDS ORDERED: oxyCODONE /ACETAMINOPHEN 5-325MG TAB PO PRN (17:45)
[2019-08-18 18:09] VITALS: BP 155/78
== END 2019-08-18 18:45 | disposition home or self-care (01) ==
LOC: ED 06:44 → 3A 11:11
PROVIDERS: ADMIT Internal Medicine; ATTEND Internal Medicine
DX: I13.2 Hypertensive heart and chronic kidney disease with heart failure and with stage 5 chronic kidney disease, or end stage renal disease (principal); E11.22 Type 2 diabetes mellitus with diabetic chronic kidney disease; N18.6 End stage renal disease; I50.9 Heart failure, unspecified; I16.0 Hypertensive urgency; R79.1 Abnormal coagulation profile; I21.3 ST elevation (STEMI) myocardial infarction of unspecified site; E43 Unspecified severe protein-calorie malnutrition; J44.9 Chronic obstructive pulmonary disease, unspecified; D64.9 Anemia, unspecified; B19.20 Unspecified viral hepatitis C without hepatic coma; Z99.2 Dependence on renal dialysis; F12.10 Cannabis abuse, uncomplicated; F17.213 Nicotine dependence, cigarettes, with withdrawal; Z71.6 Tobacco abuse counseling; Z85.46 Personal history of malignant neoplasm of prostate; Z88.5 Allergy status to narcotic agent; Z79.82 Long term (current) use of aspirin; Z79.899 Other long term (current) drug therapy
CPT/HCPCS: 36415; 71045; 80048; 80074; 80076; 82140; 82962; 83690; 83735; 83880; 84100; 85025; 85610; 85730; 93005; 93010; 96372; 96374; 96375; 96376; 99284; A9270; G0257; G0378; J0360; J2405; J7030; J1815

== ENCOUNTER 2019-09-02 09:49 | Emergency (ER) | payer MEDICARE ==
[2019-09-02] MEDS ORDERED: HYDROmorphone 1 MG/1 ML INJ IV ONE (10:12)
[2019-09-02] MEDS ORDERED: ONDANSETRON 4 MG/2 ML INJ IV ONE (10:12)
--- NOTE | 2019-09-02 10:18 | Emergency Department Report ---
ED General Adult HPI - General Chief complaint: Abdominal Pain Stated complaint: ABD PAIN Time Seen by Provider: 09/02/19 10:03 Source: patient Mode of arrival: Wheelchair Limitations: No Limitations - History of Present Illness Initial comments: Patient is a 63-year-old F Martiniqu[place] male who is currently undergoing chemotherapy for pancreatic cancer who also has hypertension diabetes and end- stage renal disease who was sent in from his dialysis session secondary to worsening abdominal pain. Patient has chronic abdominal pain but states his pain is worsened over the last 2 days. He has some mild nausea but no vomiting. Patient states he is currently out of any pain medications. Patient states he is having bowel movements and denies fever. He states that there is some mild abdominal distention however this is been present recently. Patient had 1 hour left of his dialysis session today. Patient had a recent admission for similar complaints earlier this month. Patient was admitted because of need for emergent dialysis. Patient was had abdominal pain at that time. 1 month ago the patient was admitted secondary to some worsening abdominal pain and a positive troponin level. Patient's troponin elevation was likely secondary to his end-stage renal disease. CT of the abdomen pelvis did show some ascites and evidence of live cirrhosis but no other acute findings. Severity scale (0 -10): 8 - Related Data Home Medications Medication Instructions Recorded Confirmed Last Taken AtorvaSTATin [Lipitor] 40 mg PO QHS 04/27/17 05/01/19 12/20/18 Aspirin [Adult Low Dose Aspirin EC] 81 mg PO DAILY 08/04/18 05/01/19 12/20/18 raNITIdine HCl [Zantac] 150 mg PO QDAY 08/04/18 05/01/19 12/20/18 Vit B Comp No.3/Folic/C/Biotin 1 each PO DAILY 05/01/19 05/01/19 Unknown [Carisa-Sonya Rx Tablet] carvediloL [Coreg] 25 mg PO BID 05/01/19 05/01/19 Unknown Previous Rx's Medication Instructions Recorded Last Taken Type hydrALAZINE [Apresoline TAB] 100 mg PO TID #90 tab 12/24/18 Unknown Rx Albuterol INH(or & Nicu Only) 2 puff IH QID PRN #8.5 gram 06/05/19 Unknown Rx [ProAir HFA Inhaler] Doxazosin [Cardura] 1 mg PO QDAY #30 tablet 07/20/19 Unknown Rx Insulin Aspart (Nf) [NovoLOG 100 5 units SUB-Q PRN 30 Days 07/20/19 12/20/18 Rx UNITS/ML VIAL] Insulin Detemir (Nf) [Levemir 15 units SUB-Q QHS 30 Days 07/20/19 12/20/18 Rx Flextouch (Nf)] amLODIPine 10 mg PO DAILY #90 tablet 08/18/19 Unknown Rx cloNIDine [Catapres] 0.1 mg PO TID #90 tablet 08/18/19 Unknown Rx oxyCODONE /ACETAMINOPHEN [Percocet 1 tab PO BID PRN #10 tablet 09/02/19 Unknown Rx 5/325 mg] Allergies Allergy/AdvReac Type Severity Reaction Status Date / Time morphine Allergy Swelling Verified 07/17/19 17:24 ED Review of Systems ROS: Stated complaint: ABD PAIN Other details as noted in HPI Comment: All other systems reviewed and negative ED Past Medical Hx - Past Medical History Previous Medical History?: Yes Hx Hypertension: Yes Hx Congestive Heart Failure: No Hx Diabetes: Yes (Type 2) Hx Liver Disease: Yes (HEP C) Hx Renal Disease: Yes (ESRD T--) Hx Seizures: No Hx Kidney Stones: No Hx Asthma: No Hx COPD: Yes Hx HIV: No Additional medical history: Dialysis T Wed. TAKING CHEMO. pancreatic cancer - Surgical History Past Surgical History?: Yes Additional Surgical History: graft to right leg - Social History Smoking Status: Current Some Day Smoker Substance Use Type: None - Medications Home Medications: Home Medications Medication Instructions Recorded Confirmed Last Taken Type AtorvaSTATin [Lipitor] 40 mg PO QHS 04/27/17 05/01/19 12/20/18 History Aspirin [Adult Low Dose Aspirin EC] 81 mg PO DAILY 08/04/18 05/01/19 12/20/18 History raNITIdine HCl [Zantac] 150 mg PO QDAY 08/04/18 05/01/19 12/20/18 History hydrALAZINE [Apresoline TAB] 100 mg PO TID #90 tab 12/24/18 05/01/19 Unknown Rx Vit B Comp No.3/Folic/C/Biotin 1 each PO DAILY 05/01/19 05/01/19 Unknown History [Carisa-Sonya Rx Tablet] carvediloL [Coreg] 25 mg PO BID 05/01/19 05/01/19 Unknown History Albuterol INH(or & Nicu Only) 2 puff IH QID PRN #8.5 gram 06/05/19 Unknown Rx [ProAir HFA Inhaler] Doxazosin [Cardura] 1 mg PO QDAY #30 tablet 07/20/19 Unknown Rx Insulin Aspart (Nf) [NovoLOG 100 5 units SUB-Q PRN 30 Days 07/20/19 05/01/19 12/20/18 Rx UNITS/ML VIAL] Insulin Detemir (Nf) [Levemir 15 units SUB-Q QHS 30 Days 07/20/19 05/01/19 12/20/18 Rx Flextouch (Nf)] amLODIPine 10 mg PO DAILY #90 tablet 08/18/19 Unknown Rx cloNIDine [Catapres] 0.1 mg PO TID #90 tablet 08/18/19 Unknown Rx oxyCODONE /ACETAMINOPHEN [Percocet 1 tab PO BID PRN #10 tablet 09/02/19 Unknown Rx 5/325 mg] ED Physical Exam - General Limitations: No Limitations General appearance: alert, in no apparent distress - Head Head exam: Present: atraumatic, normocephalic - Eye Eye exam: Present: normal appearance - ENT ENT exam: Present: mucous membranes moist - Neck Neck exam: Present: normal inspection - Respiratory Respiratory exam: Present: normal lung sounds bilaterally. Absent: respiratory distress, wheezes, rales - Cardiovascular Cardiovascular Exam: Present: regular rate, normal rhythm, normal heart sounds. Absent: systolic murmur, diastolic murmur, rubs, gallop - GI/Abdominal GI/Abdominal exam: Present: soft, distended (mild, likley secondary to cirrhosis and mild-moderate ascities), tenderness (generalized), normal bowel sounds - Rectal Rectal exam: Present: deferred - Extremities Exam Extremities exam: Present: normal inspection - Back Exam Back exam: Present: normal inspection - Neurological Exam Neurological exam: Present: alert, oriented X3 - Psychiatric Psychiatric exam: Present: normal affect, normal mood - Skin Skin exam: Present: warm, dry, intact, normal color. Absent: rash ED Course Vital Signs 09/02/19 09/02/19 09/02/19 09:51 10:12 10:45 Temperature 98.0 F 98.5 F Pulse Rate 94 H 163 H 85 Respiratory 18 19 14 Rate Blood Pressure 204/88 Blood Pressure 225/109 237/97 [Right] O2 Sat by Pulse 95 95 Oximetry 09/02/19 09/02/19 09/02/19 11:00 11:16 11:18 Temperature Pulse Rate 91 H 92 H 88 Respiratory 28 H 14 Rate Blood Pressure 204/88 226/103 212/96 Blood Pressure [Right] O2 Sat by Pulse 100 Oximetry 09/02/19 09/02/19 09/02/19 11:29 11:32 11:45 Temperature Pulse Rate 74 82 Respiratory 14 19 Rate Blood Pressure 237/97 197/96 Blood Pressure [Right] O2 Sat by Pulse 100 100 Oximetry 09/02/19 09/02/19 12:00 12:15 Temperature Pulse Rate 73 73 Respiratory 11 L 13 Rate Blood Pressure 176/79 180/76 Blood Pressure [Right] O2 Sat by Pulse 100 100 Oximetry ED Medical Decision Making - Lab Data Result diagrams: 09/02/19 10:01 09/02/19 10:01 Lab Results 09/02/19 09/02/19 Range/Units 10:01 10:01 WBC 8.3 (4.5-11.0) K/mm3 RBC 4.94 (3.65-5.03) M/mm3 Hgb 14.6 (11.8-15.2) gm/dl Hct 46.5 H (35.5-45.6) % MCV 94 (84-94) fl MCH 30 (28-32) pg MCHC 31 L (32-34) % RDW 15.6 H (13.2-15.2) % Plt Count 93 L (140-440) K/mm3 Lymph % (Auto) 9.9 L (13.4-35.0) % Callahan % (Auto) 5.2 (0.0-7.3) % Eos % (Auto) 0.3 (0.0-4.3) % Baso % (Auto) 0.9 (0.0-1.8) % Lymph # 0.8 L (1.2-5.4) K/mm3 Callahan # 0.4 (0.0-0.8) K/mm3 Eos # 0.0 (0.0-0.4) K/mm3 Baso # 0.1 (0.0-0.1) K/mm3 Seg Neutrophils % 83.7 H (40.0-70.0) % Seg Neutrophils # 7.0 (1.8-7.7) K/mm3 Sodium 138 (137-145) mmol/L Potassium 4.0 (3.6-5.0) mmol/L Chloride 94.9 L (98-107) mmol/L Carbon Dioxide 24 (22-30) mmol/L Anion Gap 23 mmol/L BUN 16 (9-20) mg/dL Creatinine 4.3 H (0.8-1.5) mg/dL Estimated GFR 17 ml/min BUN/Creatinine Ratio 4 % Glucose 173 H (75-100) mg/dL Calcium 9.9 (8.4-10.2) mg/dL Total Bilirubin 0.60 (0.1-1.2) mg/dL AST 37 (5-40) units/L ALT 14 (7-56) units/L Alkaline Phosphatase 114 (35-129) units/L Total Protein 9.3 H (6.3-8.2) g/dL Albumin 3.9 (3.9-5) g/dL Albumin/Globulin Ratio 0.7 % - Medical Decision Making Patient is a 63-year-old F [place] male with history of pancreatic cancer who is complaining of some abdominal discomfort. Patient was noted to have an elevated blood pressure on arrival as well. Patient was given labetalol and his blood pressure did respond well. Patient is given a dose of Dilaudid and his abdominal pain is improved. Patient likely does need chronic pain management and was given pain clinic for follow-up. As a bridge patient will be started on a few Percocet for his pain. Patient be discharged home. Evaluation of the patient's laboratory studies showed the patient does not have hyperkalemia and does not need any additional dialysis emergently at this time. Critical care attestation.: If time is entered above; I have spent that time in minutes in the direct care of this critically ill patient, excluding procedure time. ED Disposition Clinical Impression: ESRD (end stage renal disease), Acute abdominal pain Pancreas cancer Qualifiers: Pancreatic malignancy location: unspecified Qualified Code(s): C25.9 - Malignant neoplasm of pancreas, unspecified Ascites Qualifiers: Ascites type: other type Qualified Code(s): R18.8 - Other ascites Disposition: DC-01 TO HOME OR SELFCARE Is pt being admited?: No Does the pt Need Aspirin: No Condition: Stable Prescriptions: oxyCODONE /ACETAMINOPHEN [Percocet 5/325 mg] 1 tab PO BID PRN #10 tablet PRN Reason: Pain, Moderate (4-6) Referrals: PRIMARY CARE, [Primary Care Provider] - 3-5 Days [facility] [Provider Group] - 3-5 Days Time of Disposition: 12:28
[2019-09-02 10:45] LABS: Albumin 3.9 g/dL (3.9-5); Calcium 9.9 mg/dL (8.4-10.2)
[2019-09-02 10:49] LABS: Basophils # (Auto) 0.1 K/mm3 (0.0-0.1); Basophils % (Auto) 0.9 % (0.0-1.8); Eosinophils % (Auto) 0.3 % (0.0-4.3); Hematocrit 46.5 % (35.5-45.6); Hemoglobin 14.6 gm/dl (11.8-15.2); Lymphocytes # (Auto) 0.8 K/mm3 (1.2-5.4); Lymphocytes % (Auto) 9.9 % (13.4-35.0); Mean Corpuscular HGB Conc 31 % (32-34); Mean Corpuscular Volume 94 fl (84-94); Monocytes # (Auto) 0.4 K/mm3 (0.0-0.8); Monocytes % (Auto) 5.2 % (0.0-7.3); Red Blood Count 4.94 M/mm3 (3.65-5.03); Red Cell Distribution Width 15.6 % (13.2-15.2)
[2019-09-02 10:56] LABS: Platelet Count 93 K/mm3 (140-440)
[2019-09-02 13:09] VITALS: BP 164/73
== END 2019-09-02 12:45 | disposition home or self-care (01) ==
LOC: ED 09:49
DX: I12.0 Hypertensive chronic kidney disease with stage 5 chronic kidney disease or end stage renal disease (principal); E11.22 Type 2 diabetes mellitus with diabetic chronic kidney disease; N18.6 End stage renal disease; R18.8 Other ascites; C25.9 Malignant neoplasm of pancreas, unspecified; G89.29 Other chronic pain; R10.9 Unspecified abdominal pain; J44.9 Chronic obstructive pulmonary disease, unspecified; F17.200 Nicotine dependence, unspecified, uncomplicated; Z99.2 Dependence on renal dialysis; Z88.6 Allergy status to analgesic agent; Z79.899 Other long term (current) drug therapy; Z79.4 Long term (current) use of insulin; Z86.19 Personal history of other infectious and parasitic diseases; Z98.890 Other specified postprocedural states
CPT/HCPCS: 36415; 80053; 85025; 96374; 96375; 99284; J1170; J2405